=== PATIENT | female | born 1960 | race Caucasian/White ===

== ENCOUNTER 2020-06-30 09:30 | Emergency (ER) | payer OTHER, SELFPAY ==
[2020-06-30 09:48] VITALS: BP 148/83; PULSE 83; RESP 16; TEMP 37.1; O2SAT 98; BMI 21.9
--- NOTE | 2020-06-30 09:48 | CT_ITS ---
EXAMINATION: CT ABDOMEN AND PELVIS WITHOUT CONTRAST CLINICAL INFORMATION: Left-sided flank pain. History of kidney stones. Status post lithotripsy. COMPARISON: CT abdomen pelvis 12/26/2019 TECHNIQUE: Multidetector volumetric imaging was performed from the superior aspect of the liver through the pubic symphysis. Sagittal and coronal reformatted images were obtained on the technologist's workstation. This CT examination was performed using dose optimization techniques as appropriate, variously including the following: *Automated exposure control *Adjustment of mA and/or kV according to patient size (this includes techniques or standardized protocols for targeted exams where dose is matched to indication/reason for exam; i.e. extremities or head) *Use of iterative reconstruction technique DLP: 678 mGy-cm FINDINGS: Visualized lung bases are well aerated. There is minimal dependent atelectasis. The liver demonstrates normal size, contour and attenuation. The gallbladder is normal in appearance. The pancreas, spleen and adrenal glands are unremarkable. There is mild to moderate left-sided hydronephrosis secondary to a 2 mm calculus within the mid left ureter. No renal calculi are present bilaterally. There is no right-sided hydronephrosis. Tiny hiatal hernia. The stomach is decompressed. Normal caliber loops of small and large bowel. Normal appendix. Minimal colonic diverticulosis without CT evidence to suggest active diverticulitis. Nonaneurysmal abdominal aorta. The bladder is relatively decompressed but unremarkable. Unremarkable CT appearance of the uterus. No gross free pelvic fluid. No inguinal lymphadenopathy. Mild degenerative changes of the spine. IMPRESSION: Mild to moderate left-sided hydronephrosis secondary to a 2 mm calculus within the mid left ureter.
--- NOTE | 2020-06-30 09:50 | ED.GENADULT ---
HPI - General Adult General Chief complaint: Abdominal Pain Stated complaint: flank pain Time Seen by Provider: 06/30/20 09:39 Source: patient Mode of arrival: ambulatory Limitations: no limitations History of Present Illness HPI narrative: 60 y/o female with history of kidney stones requiring lithotripsy in the past presenting with acute onset of left sided flank pain that started at 4am today. She states it feels exactly like prior kidney stone pain. She also reports nausea and vomiting. She denies blood in her urine, painful urination or urinary frequency. No fever or chills. She states the pain sometimes shoots to her left sided abdomen as well. She has not taken anything for the pain yet. Related Data Previous Rx's Medication Instructions Recorded ondansetron HCl [Zofran] 4 mg PO Q8H PRN #14 tab 06/30/20 oxycodone 5 mg PO Q6H PRN #14 tab 06/30/20 prednisone 40 mg PO DAILY #10 tab 06/30/20 tamsulosin [Flomax] 0.4 mg PO DAILY #10 cap 06/30/20 Allergies Allergy/AdvReac Type Severity Reaction Status Date / Time sulfamethoxazole Allergy Severe RASH Verified 06/30/20 09:47 [From BACTRIM] trimethoprim [From BACTRIM] Allergy Severe RASH Verified 06/30/20 09:47 gentamicin Allergy Unknown Verified 06/30/20 09:47 Sulfa (Sulfonamide Allergy Unknown Verified 06/30/20 09:47 Antibiotics) Review of Systems Review of Systems: Constitutional: No Fever, No Chills ENT/Mouth: No sore throat, No Rhinorrhea, No Swallowing Difficulty Eyes: No Eye Pain, No Swelling, No Redness Cardiovascular: No Chest Pain, No SOB, No Orthopnea, No Edema Respiratory: No Cough, No Sputum, No Wheezing, No dyspnea Gastrointestinal: + Nausea, No Vomiting, No Diarrhea, + abdominal Pain, No Hematochezia, No Melena Genitourinary: No Dysuria, No Urinary Frequency, No Hematuria Musculoskeletal: No joint pain, No Myalgias Skin: No Skin Lesions, No rash Neuro: No Weakness, No Numbness, No Dizziness, No Headache Psych: No Anxiety/Panic, No Depression Heme/Lymph: No Bruising, No Lymphadenopathy Endocrine: No Polyuria, No Polydipsia [facility] Past Medical History Medical History (Updated 06/30/20 @ 12:29 by LYNDSEY Ruiz) Asthma Kidney calculi Social History Social History Alcohol intake: never Smoking Status: Never smoker Use of substances other than those prescribed or required for medical reasons: No Advance Directives: No Advance Directives Information Provided: No Physical Exam Vital Signs: Vital Signs: Vital Signs Temp Pulse Resp BP Pulse Ox 06/30/20 09:48 98.7 F 83 16 148/83 H 98 Body Mass Index 21.9 Appearance: Alert. Oriented X3. No acute distress. Eyes: Pupils equal, round and reactive to light. ENT: Pharynx normal. Neck: Normal inspection. Neck supple. CVS: Normal heart rate and rhythm. Pulses normal. Respiratory: No respiratory distress. Breath sounds normal. Abdomen: Soft with mild LLQ tenderness. CVA tenderness on the left. +BS x4 Skin: Skin warm and dry. Normal skin color. Normal skin turgor. No rashes. Extremities: No lower extremity edema. Neuro: Oriented X 3. No motor deficit. No sensory deficit. Course Course Course Narrative: Concern for kidney stones given her history - IVF, toradol and zofran ordered. CT scan pending. Reevaluation(s) Reevaluation #1: Significant improvement after NSAID and antiemetic. CT scan shows 2mm stone in mid-ureter with mild-mod hydroureteronephrosis. Given size and location and patient's improvement in symptoms she can likely pass the stone on her own. IV decadron and flomax given. Can likely d/c with prednisone, flomax, and oxycodone if pain remains controlled and she is tolerating PO. Time: 12:03 Reevaluation #2: Pain remains controlled. She is stable for discharge with plan to f/u Urology in 1 week. Instructed to return to the ER if pain persists/worsens or if she has persistent N/V. Time: 12:45 Medical Decision Making Lab Data Result diagrams: 06/30/20 10:01 06/30/20 10:01 Labs: Lab Results 06/30/20 06/30/20 Range/Units 10: 10:01 WBC 9.9 (4.8-10.8) X10*3/uL RBC 4.75 (4.20-5.50) X10*6/uL Hgb 14.2 (12.0-16.0) g/dl Hct 41.8 (37-47) % MCV 88.0 (80-98) fL MCH 29.9 (27.0-33.0) pg MCHC 34.0 (31.0-35.0) g/dl RDW 12.4 (11.0-16.0) % Plt Count 235 (160-400) X10*3/uL MPV 10.4 (9.4-12.3) fL Immature Gran % (Auto) 0.3 (0.0-0.4) % Neut % (Auto) 80.2 H (45-73) % Lymph % (Auto) 13.6 L (20-40) % [place] % (Auto) 5.5 (2-11) % Eos % (Auto) 0.1 (0-4) % Baso % (Auto) 0.3 (0-2) % Lymph # (Auto) 1.3 (1.2-4.9) X10*3/uL [place] # (Auto) 0.5 (0.1-1.2) X10*3/uL Eos # (Auto) 0.0 (0.0-0.4) X10*3/uL Baso # (Auto) 0.0 (0.0-0.2) X10*3/uL Abs Immat Gran (auto) 0.03 (0.00-0.03) X10*3/uL Absolute Neuts (auto) 7.9 (2.0-8.3) X10*3/uL Absolute Nucleated RBC 0.000 (0.0-0.012) X10*3/uL Nucleated RBC % (auto) 0.0 (0.0-0.2) /100WBC Sodium 140 (135-145) mmol/L Potassium 4.0 (3.3-5.1) mmol/l Chloride 106 (96-108) mmol/L Carbon Dioxide 26 (22-29) mmol/L Anion Gap 12 (12-20) BUN 14 (9-16) mg/dL Creatinine 1.03 (0.5-1.4) mg/dL Estim Creat Clear Calc 55.7 Estimated GFR 55 Random Glucose 109 (60-115) mg/dL Calcium 9.3 (8.4-10.2) mg/dL Total Bilirubin 0.6 (0.0-1.0) mg/dL Direct Bilirubin 0.3 (0.0-0.5) mg/dL AST 18 (5-31) U/L ALT 13 (0-31) U/L Alkaline Phosphatase 70 (39-117) U/L Total Protein 7.3 (6.5-8.0) g/dL Albumin 4.5 (3.5-5.0) g/dL Discharge Plan Discharge Clinical Impression: Calculus of kidney Patient Disposition: Home, Self-Care Instructions: Kidney Stones (ED) Additional Instructions: Stay hydrated. Take medications as prescribed to help you pass your kidney stone at home. If you have worsening pain, persistent nausea and vomiting come back to the ER for further evaluation. Follow up with Urology in 1 week. Prescriptions: New prednisone 20 mg tablet 40 mg PO DAILY Qty: 10 RF: 0 ondansetron HCl [Zofran] 4 mg tablet 4 mg PO Q8H PRN (Reason: nausea and vomiting) Qty: 14 RF: 0 oxycodone 5 mg tablet 5 mg PO Q6H PRN (Reason: pain) Qty: 14 RF: 0 tamsulosin [Flomax] 0.4 mg capsule 0.4 mg PO DAILY Qty: 10 RF: 0 Referrals: Remigio Rodriguez MD [Physician] - 1 week
[2020-06-30] MEDS: 0.9 % Sodium Chloride 1,000 ML 999 ML IVCONT (10:11)
[2020-06-30] MEDS: ondansetron HCL 4 MG/2 ML VIAL IVPUSH (10:11)
[2020-06-30] MEDS: Ketorolac Tromethamine 30 MG/ML VIAL IVPUSH (10:11)
[2020-06-30 10:12] LABS: MANUAL DIFF FLAG NO
[2020-06-30 10:14] LABS: Basophils Percent Auto 0.3 % (0-2); Eosinophils Percent Auto 0.1 % (0-4); Hematocrit 41.8 % (37-47); Hemoglobin 14.2 g/dl (12.0-16.0); Imm Gran Abs Auto 0.03 X10*3/uL (0.00-0.03); Imm Gran Pct Auto 0.3 % (0.0-0.4); Lymphocytes Absolute Auto 1.3 X10*3/uL (1.2-4.9); Lymphocytes Percent Auto 13.6 % (20-40); Mean Corpuscular Hemoglobin 29.9 pg (27.0-33.0); Mean Platelet Volume 10.4 fL (9.4-12.3); Monocytes Absolute Auto 0.5 X10*3/uL (0.1-1.2); Monocytes Percent Auto 5.5 % (2-11); Neutrophils Absolute Auto 7.9 X10*3/uL (2.0-8.3); Neutrophils Percent Auto 80.2 % (45-73); Platelet Count 235 X10*3/uL (160-400); Red Blood Count 4.75 X10*6/uL (4.20-5.50); Red Cell Distribution Width 12.4 % (11.0-16.0); White Blood Count 9.9 X10*3/uL (4.8-10.8)
[2020-06-30 10:55] LABS: Alanine Aminotransferase 13 U/L (0-31); Albumin Level 4.5 g/dL (3.5-5.0); Alkaline Phosphatase 70 U/L (39-117); Anion Gap 12 (12-20); Aspartate Amino Transferase 18 U/L (5-31); Bilirubin Direct 0.3 mg/dL (0.0-0.5); Bilirubin Total 0.6 mg/dL (0.0-1.0); Blood Urea Nitrogen 14 mg/dL (9-16); Calcium 9.3 mg/dL (8.4-10.2); Carbon Dioxide 26 mmol/L (22-29); Chloride 106 mmol/L (96-108); Creatinine Clr Calc Pharmacy 55.7; Estimated Glomerular Filt Rate 55; Glucose Random 109 mg/dL (60-115); Sodium 140 mmol/L (135-145); Total Protein 7.3 g/dL (6.5-8.0)
[2020-06-30] MEDS: Tamsulosin HCL 0.4 MG CAPSULE PO (12:11)
[2020-06-30] MEDS: dexAMETHasone 2 MG TABLET 10 MG PO (12:11)
== END 2020-06-30 13:08 | disposition home or self-care (01) ==
PROVIDERS: Physician Assistant; Emergency Provider Emergency Medicine; PCP Internal Medicine
DX: N13.2 Hydronephrosis with renal and ureteral calculous obstruction (principal); Z87.442 Personal history of urinary calculi
CPT/HCPCS: 36415; 74176; 80048; 80076; 85025; 96361; 96374; 96375; 99284; J8540

== ENCOUNTER → 2020-07-06 14:40 | Outpatient (BNVA) | payer OTHER, SELFPAY | PROVIDERS: PCP Internal Medicine; Visit Provider Urology | DX: Z76.89 Persons encountering health services in other specified circumstances (principal) ==

== ENCOUNTER 2020-07-14 15:54 | Outpatient (REF) | payer OTHER, SELFPAY ==
--- NOTE | 2020-07-14 15:59 | US_ITS ---
EXAMINATION: US RETROPERITONEAL LIMITED (RENAL ONLY) CLINICAL INFORMATION: Calculus of kidney. COMPARISON: CT abdomen and pelvis 06/30/2020. Renal ultrasound 12/16/2019. X-ray abdomen 07/29/2018. Ultrasound abdomen limited 07/29/2018. TECHNIQUE: Real-time imaging of the kidneys. FINDINGS: RIGHT KIDNEY: 11.5 x 4.5 x 5.8 cm (SAG x AP x TRV). The kidney is normal in size, contour, and echogenicity. Renal cortical thickness is normal. No focal parenchymal lesions or hydronephrosis. There is a nonobstructive echogenic stone lower pole measuring 0.2 x 0.3 x 0.2 cm LEFT KIDNEY: 11.2 x 4.5 x 4.4 cm (SAG x AP x TRV). The kidney is normal in size, contour, and echogenicity. Renal cortical thickness is normal. No focal parenchymal lesions or hydronephrosis. There is a nonobstructive echogenic stone lower pole measuring 0.3 x 0.3 x 0.3 cm. US/US renal BI IMPRESSION: Bilateral nonobstructive echogenic lower pole renal calculi. No caliectasis or hydronephrosis seen. Recent CT visualized left mid ureteral stone is not included in the [id number]. There is no hydronephrosis on left side.
== END 2020-07-14 15:55 | disposition home or self-care (01) ==
LOC: HO.US 15:54
PROVIDERS: Visit Provider Urology
DX: N20.0 Calculus of kidney (principal)
CPT/HCPCS: 76775

== ENCOUNTER 2021-07-27 14:00 | Outpatient (REF) | payer OTHER, SELFPAY ==
--- NOTE | ~2021-07-27 | US_ITS ---
EXAMINATION: US RETROPERITONEAL LIMITED (RENAL ONLY) CLINICAL INFORMATION: Calculus of kidney. COMPARISON: Bilateral renal ultrasound dated 07/14/2020. CT abdomen and pelvis without contrast dated 06/30/2020. Renal ultrasound with bladder dated 12/16/2019. X-ray abdomen dated 07/29/2018. TECHNIQUE: Real-time imaging of the kidneys. FINDINGS: RIGHT KIDNEY: 11.9 x 5 x 4.9 cm (SAG x AP x TRV). The kidney is normal in size, contour, and echogenicity. Renal cortical thickness is normal. No calculi or focal parenchymal lesions. No hydronephrosis. LEFT KIDNEY: 11.3 x 4.8 x 4.8 cm (SAG x AP x TRV). The kidney is normal in size, contour, and echogenicity. Renal cortical thickness is normal. No calculi or focal parenchymal lesions. No hydronephrosis. US/US renal BI IMPRESSION: Unremarkable renal ultrasound. Previously visualized nonobstructive echogenic lower pole renal calculi are not seen at this time..
== END 2021-07-27 14:01 | disposition home or self-care (01) ==
LOC: HO.US 14:00
PROVIDERS: Visit Provider Urology
DX: N20.0 Calculus of kidney (principal)
CPT/HCPCS: 76775

== ENCOUNTER → 2021-09-22 08:34 | Outpatient (BNVA) | payer OTHER, SELFPAY | PROVIDERS: PCP Internal Medicine ==

== ENCOUNTER 2021-10-29 10:05 | Outpatient (REF) | payer OTHER, SELFPAY ==
--- NOTE | ~2021-10-29 | MM_ITS ---
EXAMINATION: MM SCREENING DIGITAL BREAST TOMOSYNTHESIS, BILATERAL CLINICAL INFORMATION: Screening. Asymptomatic. The lifetime risk of breast cancer based on the Tyrer-Cuzick Model is 5%. COMPARISON: Outside mammography: 06/01/2018, 05/26/2017, 05/20/2016 ([facility]). TECHNIQUE: Digital breast tomosynthesis is performed in both the craniocaudal and mediolateral oblique views along with computer-aided detection (CAD). Synthesized 2D images are generated from the tomosynthesis. FINDINGS: There are scattered areas of fibroglandular density (ACR BI-RADS breast composition Category b). There is a fibronodular parenchymal pattern similar to prior studies. Breast tissue composition borders on heterogeneously dense. Scattered minor parenchymal asymmetries are stable. There are no significant masses, abnormal calcifications, or other abnormalities. The axilla and skin contours are unremarkable. No significant changes from prior outside exams. MM/MM tomosynthesis screening BI IMPRESSION: No significant changes from prior outside exams. ASSESSMENT: BI-RADS 2: Benign RECOMMENDATION: Routine annual mammography screening. This patient's information was entered into a reminder system with a target due date for their next mammogram.
== END 2021-10-29 10:06 | disposition home or self-care (01) ==
LOC: HO.MAMMO 10:05
PROVIDERS: Visit Provider Registered Nurse Community Health
DX: Z12.31 Encounter for screening mammogram for malignant neoplasm of breast (principal)
CPT/HCPCS: 77063; 77067

== ENCOUNTER 2022-04-07 14:52 | Outpatient (REF) | payer OTHER, SELFPAY ==
--- NOTE | ~2022-04-07 | US_ITS ---
EXAMINATION: US RETROPERITONEAL LIMITED (RENAL ONLY) CLINICAL INFORMATION: Calculus of kidney. COMPARISON: Renal ultrasound 07/27/2021. CT abdomen and pelvis 06/30/2020. TECHNIQUE: Real-time imaging of the kidneys. FINDINGS: RIGHT KIDNEY: 11.2 x 4.4 x 3.5 cm (SAG x AP x TRV). The kidney is normal in size, contour, and echogenicity. Renal cortical thickness is normal. No focal parenchymal lesions or hydronephrosis. 2 mm nonobstructing mid pole renal stone not seen on recent prior however appears present and similar to 2020. LEFT KIDNEY: 11.0 x 4.9 x 3.9 cm (SAG x AP x TRV). The kidney is normal in size, contour, and echogenicity. Renal cortical thickness is normal. No focal parenchymal lesions or hydronephrosis. Probable 2 mm nonobstructing left lower pole renal stone not seen on recent prior however present 06/29/2020 and similar. Partially imaged liver appears echogenic. US/US renal BI IMPRESSION: 2 mm nonobstructing right midpole renal stone and probable 2 mm nonobstructing left lower pole renal stone, both not seen on recent prior however present and 07/14/2020 and similar in appearance. Partially imaged liver appears echogenic suggestive of hepatic steatosis or underlying liver disease. This could be further characterized with a dedicated right upper quadrant ultrasound if clinically indicated.
== END 2022-04-07 14:53 | disposition home or self-care (01) ==
LOC: HO.US 14:52
DX: N20.0 Calculus of kidney (principal)
CPT/HCPCS: 76775

== ENCOUNTER 2022-10-04 12:45 | Outpatient (REF) | payer OTHER, SELFPAY ==
--- NOTE | ~2022-10-04 | US_ITS ---
EXAMINATION: US RETROPERITONEAL LIMITED (RENAL ONLY) CLINICAL INFORMATION: Calculus of kidney. COMPARISON: Ultrasound retroperitoneal limited (renal only) 04/07/2022 and 07/27/2021. CT abdomen and pelvis without contrast 06/30/2020. X-ray abdomen 07/29/2018. TECHNIQUE: Real-time imaging of the kidneys. FINDINGS: RIGHT KIDNEY: 11.4 x 4.6 x 5.9 cm (SAG x AP x TRV). The kidney is normal in size, contour, and echogenicity. Renal cortical thickness is normal. No calculi or focal parenchymal lesions. No hydronephrosis. Extrarenal pelvis noted. Vascular calcifications are noted. LEFT KIDNEY: 11.3 x 4.8 x 4.3 cm (SAG x AP x TRV). The kidney is normal in size, contour, and echogenicity. Renal cortical thickness is normal. No calculi or focal parenchymal lesions. No hydronephrosis. US/US renal BI IMPRESSION: No renal calculi identified. No hydronephrosis.
== END 2022-10-04 12:46 | disposition home or self-care (01) ==
LOC: HO.US 12:45
DX: N20.0 Calculus of kidney (principal)
CPT/HCPCS: 76775

== ENCOUNTER 2022-11-18 10:05 | Outpatient (REF) | payer OTHER, SELFPAY ==
--- NOTE | ~2022-11-18 | MM_ITS ---
EXAMINATION: MM SCREENING DIGITAL BREAST TOMOSYNTHESIS, BILATERAL CLINICAL INFORMATION: Screening. Asymptomatic. The lifetime risk of breast cancer based on the Tyrer-Cuzick Model is 5%. COMPARISON: Mammography: 10/29/2021, 06/01/2018, 05/26/2017 TECHNIQUE: Digital breast tomosynthesis is performed in both the craniocaudal and mediolateral oblique views along with computer-aided detection (CAD). Synthesized 2D images are generated from the tomosynthesis. FINDINGS: There are scattered areas of fibroglandular density (ACR BI-RADS breast composition Category b). Breast tissue composition borders on heterogeneously dense. There are no significant masses, abnormal calcifications, or other abnormalities. Fibronodular parenchymal pattern is similar to prior studies and there is no developing density or architectural abnormality. The axilla are unremarkable. MM/MM tomosynthesis screening BI IMPRESSION: No mammographic evidence of malignancy. ASSESSMENT: BI-RADS 2: Benign RECOMMENDATION: Routine annual mammography screening. This patient's information was entered into a reminder system with a target due date for their next mammogram.
== END 2022-11-18 10:06 | disposition home or self-care (01) ==
LOC: HO.MAMMO 10:05
PROVIDERS: PCP Internal Medicine; Visit Provider Registered Nurse Community Health
DX: Z12.31 Encounter for screening mammogram for malignant neoplasm of breast (principal)
CPT/HCPCS: 77063; 77067

== ENCOUNTER → 2022-11-30 08:33 | Outpatient (BNVA) | payer OTHER, SELFPAY | PROVIDERS: PCP Internal Medicine; Visit Provider Nurse Practitioner Family | DX: Z13.89 Encounter for screening for other disorder (principal) ==

== ENCOUNTER 2023-05-25 14:36 | Outpatient (REF) | payer OTHER, SELFPAY ==
--- NOTE | ~2023-05-25 | US_ITS ---
EXAMINATION: US RETROPERITONEAL LIMITED (RENAL ONLY) CLINICAL INFORMATION: Calculus of kidney. COMPARISON: Renal ultrasound 10/04/2022 and 04/07/2022. CT of abdomen and pelvis 06/30/2020. X-ray abdomen 07/29/2018. TECHNIQUE: Real-time imaging of the kidneys. FINDINGS: RIGHT KIDNEY: 10.6 x 4.8 x 5.0 cm (SAG x AP x TRV). The kidney is normal in size, contour, and echogenicity. Renal cortical thickness is normal. No focal parenchymal lesions or hydronephrosis. 0.4 x 0.3 x 0.4 cm lower pole and 0.3 x 0.2 x 0.3 cm mid renal nonobstructing calculi are seen. LEFT KIDNEY: 11.4 x 5.6 x 5.5 cm (SAG x AP x TRV). The kidney is normal in size, contour, and echogenicity. Renal cortical thickness is normal. No focal parenchymal lesions or hydronephrosis. 0.4 x 0.2 x 0.3 cm mid renal nonobstructing calculus is seen. 0.2 x 0.1 x 0.2 cm renal calcification appears to be cortical in location rather than within the collecting system. US/US renal BI IMPRESSION: Bilateral small nonobstructing renal calculi.
== END 2023-05-25 14:37 | disposition home or self-care (01) ==
LOC: HO.US 14:36
PROVIDERS: PCP Internal Medicine; Visit Provider Nurse Practitioner Family
DX: N20.0 Calculus of kidney (principal)
CPT/HCPCS: 76775

== ENCOUNTER 2023-06-05 14:49 | Outpatient (AMB) | payer OTHER, SELFPAY ==
--- NOTE | 2023-06-05 15:00 | MHC.OFFVIS ---
Intake Intake Visit Reasons: 6m/US(set) Intake Note: Patient is present for tele visit for 6mo follow up kidney stone/ultrasound (imaging 05/25/23) Urology Medications: Vitamin B6 Blood Thinner: none Code Machine Operator Required: Yes Code Machine Operator Name: Rayne Accompanied by: Self / Same As Patient Allergies sulfamethoxazole [From BACTRIM] Allergy (Severe, Verified 06/05/23 16:06) RASH trimethoprim [From BACTRIM] Allergy (Severe, Verified 06/05/23 16:06) RASH gentamicin Allergy (Verified 06/05/23 16:06) Unknown Sulfa (Sulfonamide Antibiotics) Allergy (Verified 06/05/23 16:06) Unknown Medication List - Last Reconciled 06/05/23 by MARK Mario ascorbic acid (vitamin C) mg PO pyridoxine (vitamin B6) 50 mg PO DAILY 30 days HPI HPI Comments History of Present Illness Details Erendira is a pleasant 63-year-old Malay-speaking female patient of Dr. Madden. She has a past medical history of asthma and renal stones. She presents to the office today for her nephrolthiasis. When asked she reports to be doing and feeling well. Recent renal ultrasound results reviewed with the patient today. Right kidney with no lesions and or hydronephrosis 0.4 x 0.3 x 0.4 cm lower pole and 0.3 x 0.2 x 0.3 cm mid renal nonobstructing calculi are seen. Left kidney with no lesions or hydronephrosis. 0.4 x 0.2 x 0.3 cm mid renal nonobstructing calculus is seen. 0.2 x 0.1 x 0.2 cm renal calcification appears to be cortical in location rather than within the collecting system. When asked she denies urinary urgency, urinary frequency, incontinence, nocturia, hematuria, dysuria, foul smelling urine, changes to urinary stream, flank pain, fever, and or chills. When asked she offers no concerns or complaints at this time. When asked she reports to be drinking water daily and adding lemon juice to water daily. In office urinalysis results reviewed with the patient today. 2+ microscopic hematuria noted. Likely related to nephrolithiasis. Will continue with surveillance monitoring. [facility] Medical History Asthma Kidney calculi Social History Alcohol intake: never Review of Systems Const All systems reviewed & are unremarkable except as noted in HPI and below Eyes Reports no additional complaints ENT Reports no additional complaints Card Reports no additional complaints Resp Reports as per HPI GI Reports no additional complaints Reports as per HPI Musc Reports no additional complaints Neuro Reports no additional complaints Psych Reports no additional complaints Endo Reports no additional complaints Mendez/Lymph Reports no additional complaints Aller/Immun Reports no additional complaints Physical Exam Const General: cooperative, healthy appearing, comfortable, no acute distress, well developed, alert and awake Orientation/consciousness: patient oriented x3 Limitations: no limitations HEENT Head: Yes normal to inspection, Yes normocephalic and Yes atraumatic Ears: hearing grossly normal bilaterally Eyes General: appearance normal, both eyes and all related structures Neck Neck: Yes normal visual inspection and Yes trachea midline Chest Chest palpation & inspection: normal inspection of the chest Resp Effort & Inspection: normal respiratory effort and able to speak in complete sentences Cardio Rate: regular rate GI Inspection: Yes normal to inspection General: Yes no CVA tenderness Back/Spine/Pelvis Back: no CVA tenderness Skin General skin exam: no rashes or lesions noted Neuro General: patient oriented x3 Extrem General: Yes normal to inspection Psych Appearance: grossly normal and well kempt Mental Status: mental status grossly normal Speech and movement: Normal speech and movement present and Clear speech present Affect: normal affect Attitude: cooperative Thought process: Normal thought process present Thought content: Normal thought content present Insight: Good insight present (Psych) Judgement: Good judgement present (Psych) Results AMB Urinalysis, Automated UA Leukoctes 0 Jenny/uL Last Edit by Zia Noyola on 06/05/23 15:35 UA Nitrite Negative Last Edit by Cerebrexcooper Noyola on 06/05/23 15:35 UA Urobilinogen 0.2 mg/dL Last Edit by JasonSantur Corporationcooper Noyola on 06/05/23 15:35 UA Protein 0 mg/dL Last Edit by Cerebrexcooper Noyola on 06/05/23 15:35 UA pH 6.0 Last Edit by JasonSantur Corporationcooper Noyola on 06/05/23 15:35 UA Blood 80 Ben/uL Last Edit by JasonSantur Corporationcooper Noyola on 06/05/23 15:35 UA Specific [place] 1.025 Last Edit by Zia Lolycourtney on 06/05/23 15:35 UA Ketone Negative Last Edit by Zia Lolycourtney on 06/05/23 15:35 UA Bilirubin 0 mg/dL Last Edit by Zia Noyola on 06/05/23 15:35 UA Glucose 0 mg/dL Last Edit by Zia oNyola on 06/05/23 15:35 Results Reviewed Results Reviewed: Laboratory Last Values Urine pH (Auto) 6.0 06/05/23 15:08 Specific [place] (Auto) 1.025 06/05/23 15:08 Urine Protein (Auto) 0 mg/dL 06/05/23 15:08 Glucose (UA)(Auto) 0 mg/dL 06/05/23 15:08 Urine Ketones (Auto) Negative 06/05/23 15:08 Urine Blood (Auto) 80 Ben/uL 06/05/23 15:08 Urine Nitrite (Auto) Negative 06/05/23 15:08 Urine Bilirubin (Auto) 0 mg/dL 06/05/23 15:08 Urine Urobilinogen (Auto) 0.2 mg/dL 06/05/23 15:08 Leukocyte Esterase (Auto) 0 Jenny/uL 06/05/23 15:08 Date of Service: 05/25/23 EXAMINATION: US RETROPERITONEAL LIMITED (RENAL ONLY) FINDINGS: RIGHT KIDNEY: 10.6 x 4.8 x 5.0 cm (SAG x AP x TRV). The kidney is normal in size, contour, and echogenicity. Renal cortical thickness is normal. No focal parenchymal lesions or hydronephrosis. 0.4 x 0.3 x 0.4 cm lower pole and 0.3 x 0.2 x 0.3 cm mid renal nonobstructing calculi are seen. LEFT KIDNEY: 11.4 x 5.6 x 5.5 cm (SAG x AP x TRV). The kidney is normal in size, contour, and echogenicity. Renal cortical thickness is normal. No focal parenchymal lesions or hydronephrosis. 0.4 x 0.2 x 0.3 cm mid renal nonobstructing calculus is seen. 0.2 x 0.1 x 0.2 cm renal calcification appears to be cortical in location rather than within the collecting system. IMPRESSION: Bilateral small nonobstructing renal calculi. Assessment & Plan Assessment & Plan (1) Kidney calculi: Code(s): N20.0 - Calculus of kidney Plan In office urinalysis results reviewed with the patient today. Recent renal ultrasound results reviewed with the patient today. Patient denies any bothersome urinary issues or concerns at this time. Continue drinking plenty of water daily. Continue vitamin B6 daily. Continue adding 1 oz of lemon juice to water daily. Renal ultrasound in 6 months. Follow-up in 6 months with imaging to be completed prior; or sooner with any issues, concerns, and or questions. Orders: Orders US renal BI 6 Months N20.0 - Calculus of kidney AMB Urinalysis Automated Today Z13.9 - Encounter for screening, unspecified Medications: Refilled pyridoxine (vitamin B6) 50 mg PO DAILY 30 days 90 caps 3RF Patient Instructions: The patient had an opportunity to ask questions regarding the treatment plan. All questions were answered. Physical exam, labs, and imaging were discussed and reviewed in detail. As well as risks, benefits, and discussion of treatment choices. No major barriers to understanding were identified. The patient expressed understanding and agreement with the above treatment plan. The patient was made aware they should contact our office by phone for worsening of their current condition, the appearance of new symptoms, or with any questions or concerns. Compliance is encouraged with any medications and follow up testing that is ordered. It is a privilege to be allowed the opportunity to participate in? your urological care.? Again, if you have any questions or concerns If you have any questions or concerns please do not hesitate to contact me. The office is [phone]. This note is constructed using voice recognition software. While every effort has been made to ensure accuracy brush finisher errors may have been included. Yours sincerely, MARK Mario Coding Level of Care Code Est Pt Level 3 (10005) Diagnoses Kidney calculi N20.0
== END 2023-06-05 15:36 | disposition home or self-care (01) ==
PROVIDERS: PCP Internal Medicine; Visit Provider Nurse Practitioner Family
DX: N20.0 Calculus of kidney (principal); Z13.9 Encounter for screening, unspecified
CPT/HCPCS: 99213

== ENCOUNTER → 2023-06-05 14:49 | Outpatient (BNVA) | payer OTHER, SELFPAY | PROVIDERS: Visit Provider Nurse Practitioner Family | DX: N20.0 Calculus of kidney (principal) | CPT/HCPCS: 81003 ==

== ENCOUNTER 2023-09-04 08:08 | Outpatient (REF) | payer OTHER, SELFPAY ==
[2023-09-04 11:30] LABS: Hematocrit 42.8 % (37.0-47.0); Mean Corpuscular HGB Conc 32.7 g/dl (31.0-35.0); Mean Corpuscular Volume 91.8 fL (80.0-98.0); Mean Platelet Volume 11.5 fL (9.4-12.3); Platelet Count 214 X10*3/uL (160-400); Red Blood Count 4.66 X10*6/uL (4.20-5.50); Red Cell Distribution Width 12.4 % (11.0-16.0); White Blood Count 5.9 X10*3/uL (4.8-10.8)
[2023-09-04 11:40] LABS: Estimated Average Glucose 108 mg/dL; Hemoglobin A1c % 5.4 % (<6.0)
[2023-09-04 11:50] LABS: Alanine Aminotransferase 42 U/L (0-31); Albumin Level 4.2 g/dL (3.5-5.0); Alkaline Phosphatase 65 U/L (39-117); Anion Gap 12 (12-20); Aspartate Amino Transferase 30 U/L (5-31); Bilirubin Total 0.5 mg/dL (0.0-1.0); Blood Urea Nitrogen 15 mg/dL (9-16); Calcium 9.2 mg/dL (8.4-10.2); Carbon Dioxide 25 mmol/L (22-29); Chloride 109 mmol/L (96-108); Cholesterol 215 mg/dL (<200); Estimated Glomerular Filt Rate > 60; Glucose Random 90 mg/dL (60-115); HDL Cholesterol 45 mg/dL (>40); LDL Cholesterol Calculated 146 mg/dL (<100); Potassium 4.3 mmol/L (3.3-5.1); Sodium 142 mmol/L (135-145); Total Protein 7.2 g/dL (6.5-8.0); Triglycerides 124 mg/dL (<150)
[2023-09-04 12:09] LABS: TSH reflex Free T4 3.02 uIU/mL (0.32-4.0)
[2023-09-04 12:24] LABS: Syphilis Screen Nonreactive (Nonreactive)
[2023-09-04 12:25] LABS: HBS Num1 43.48 mIU/mL (0-7.99); HBc Num1 0.09 S/CO (0.00-0.79); HBsAGNum1 0.25 S/CO (0.00-0.99); HIV AB/AG Nonreactive (Nonreactive); HIV Num 1 0.05 S/CO (0.00-0.99); Hepatitis B Core Antibody Nonreactive (Nonreactive); Hepatitis B Surface Antigen Negative (Negative); ~Hepatitis B Surface Antibody REACTIVE (Nonreactive); ~Hepatitis C Antibody Nonreactive (Nonreactive)
== END 2023-09-04 08:09 | disposition home or self-care (01) ==
LOC: HO.HHCL 08:08
PROVIDERS: Visit Provider Student in an Organized Health Care Education/Training Program
DX: Z00.00 Encounter for general adult medical examination without abnormal findings (principal); Z11.4 Encounter for screening for human immunodeficiency virus [HIV]
CPT/HCPCS: 36415; 80053; 80061; 83036; 84443; 85027; 86704; 86706; 86780; 86803; 87340; 87389

== ENCOUNTER 2023-10-22 11:11 | Outpatient (REF) | payer OTHER, SELFPAY ==
[2023-10-25 02:38] LABS: HPV mRNA E6/E7 rflx Not Detected (Not Detected)
== END 2023-10-22 11:12 | disposition home or self-care (01) ==
LOC: HO.LNP 11:11
PROVIDERS: Visit Provider Advanced Practice Midwife
DX: Z12.4 Encounter for screening for malignant neoplasm of cervix (principal); Z11.51 Encounter for screening for human papillomavirus (HPV)
CPT/HCPCS: 87624; 88142

== ENCOUNTER 2023-10-30 13:31 | Outpatient (AMB) | payer OTHER, SELFPAY ==
--- NOTE | 2023-10-30 13:39 | MHC.OFFVIS ---
Intake Vital Signs 10/30/23 13:46 Height 5 ft 4 in Weight 158 lb BMI 27.1 BP 142/74 H Blood Pressure Location Rt brachial Position Sitting Pulse 84 Intake Visit Reasons: Mass Rt neck Intake Note: Patient referred by PCP Dr. Manuel Mcgowan for mass on Rt neck. Present for 2yrs. Patient c/o: discomfort US Rt neck dated 10-21-23. Chemical Process Project Engineer Required: No Accompanied by: Self / Same As Patient Allergies sulfamethoxazole [From BACTRIM] Allergy (Severe, Verified 10/30/23 13:43) RASH trimethoprim [From BACTRIM] Allergy (Severe, Verified 10/30/23 13:43) RASH gentamicin Allergy (Verified 10/30/23 13:43) Unknown Sulfa (Sulfonamide Antibiotics) Allergy (Verified 10/30/23 13:43) Unknown HPI HPI Comments History of Present Illness Details Patient presents with a longstanding history of an upper back/lower neck posterior cyst. It will occasionally increasing size become symptomatic and she will squeeze it. Because of persistence, she wished to have this removed. She has never had infection. . He has no other such lesions elsewhere. Chart was reviewed and patient evaluated [facility] Medical History (Updated 10/30/23 @ 13:45 by EDIE Fraire) Surgical complication involving left eye Asthma Kidney calculi Social History (Updated 10/30/23 @ 13:45 by EDIE Fraire) Alcohol intake: never Patient Tobacco Use Status: Never used Tobacco Physical Exam Vital Signs: Last Vital Signs Pulse 84 10/30/23 13:46 BP 142/74 H 10/30/23 13:46 BMI result Body Mass Index 27.1 Neck Other: Approximately 4 x 3 cm upper back midline mass consistent with a large sebaceous cyst. Multiple tattoos. Chest Other: Chest breath sounds bilaterally, HS 1 in 2 GI Other: Abdomen soft, benign Assessment & Plan Assessment & Plan (1) Sebaceous cyst: Code(s): L72.3 - Sebaceous cyst Plan Risks, benefits, alternatives of posterior upper back sebaceous cyst/mass were reviewed the patient included but not limited to bleeding, infection, recurrence, numbness, pain, scarring, seroma formation, wound dehiscence and the patient wishes to proceed. All questions answered. Arrangements were made for this. Coding Level of Care Code New Pt Level 5 (30103) Diagnoses Sebaceous cyst L72.3
[2023-10-30 13:46] VITALS: BP 142/74; PULSE 84; BMI 27.1
== END 2023-10-30 13:57 | disposition home or self-care (01) ==
PROVIDERS: PCP Student in an Organized Health Care Education/Training Program; Referring Provider Student in an Organized Health Care Education/Training Program; Visit Provider Surgery
DX: L72.3 Sebaceous cyst (principal)
CPT/HCPCS: 99204

== ENCOUNTER → 2023-10-30 13:31 | Outpatient (BNVA) | payer OTHER, SELFPAY | PROVIDERS: PCP Student in an Organized Health Care Education/Training Program; Referring Provider Student in an Organized Health Care Education/Training Program; Visit Provider Surgery ==

== ENCOUNTER 2023-11-24 09:34 | Outpatient (REF) | payer OTHER, SELFPAY | END 2023-11-24 09:35 | disposition home or self-care (01) | LOC: HO.MAMMO 09:34 | PROVIDERS: PCP Student in an Organized Health Care Education/Training Program; Visit Provider Student in an Organized Health Care Education/Training Program | DX: Z12.31 Encounter for screening mammogram for malignant neoplasm of breast (principal) | CPT/HCPCS: 77063; 77067 ==

== ENCOUNTER → 2023-11-24 10:00 | Outpatient (BNV) | payer OTHER, SELFPAY | PROVIDERS: PCP Student in an Organized Health Care Education/Training Program; Visit Provider Radiology Diagnostic Radiology | DX: Z12.31 Encounter for screening mammogram for malignant neoplasm of breast (principal) | CPT/HCPCS: 77063; 77067 ==

== ENCOUNTER 2023-11-26 14:38 | Outpatient (REF) | payer OTHER, SELFPAY ==
--- NOTE | ~2023-11-26 | US_ITS ---
EXAMINATION: US RETROPERITONEAL LIMITED (RENAL ONLY) CLINICAL INFORMATION: Calculus of kidney. COMPARISON: Renal ultrasound 05/25/2023 and 10/04/2022. CT abdomen and pelvis 06/30/2020. X-ray abdomen 07/29/2018. TECHNIQUE: Real-time imaging of the kidneys. FINDINGS: RIGHT KIDNEY: 10.3 x 4.3 x 4.2 cm (SAG x AP x TRV). The kidney is normal in size, contour, and echogenicity. Renal cortical thickness is normal. No focal parenchymal lesions or hydronephrosis. 4 mm nonobstructing stone. LEFT KIDNEY: 11.1 x 4.7 x 3.6 cm (SAG x AP x TRV). The kidney is normal in size, contour, and echogenicity. Renal cortical thickness is normal. No calculi or focal parenchymal lesions. No hydronephrosis. US/US renal BI IMPRESSION: 4 mm nonobstructing right renal stone. No hydronephrosis.
--- NOTE | ~2023-11-26 | US_ITS ---
EXAMINATION: US PELVIS CLINICAL INFORMATION: History of fibroid. AUB COMPARISON: None available. TECHNIQUE: Ultrasound of the pelvis is performed using both transabdominal and transvaginal transducers along with Doppler. Transvaginal imaging is performed due to inadequate visualization transabdominally. FINDINGS: Uterus: The uterus is anteverted, anteflexed and measures 6.5 x 2.7 x 4.0 The double wall endometrial thickness is 3 mm. The uterus is smooth in contour and has normal myometrial echogenicity. There is a solitary fibroid in posterior lower body of uterus measuring 0.3 x 0.3 x 0.3 cm. Previously it measured 0.5 x 0.5 x 0.5 cm. There are small anechoic nabothian cysts in the cervix Adnexa: Both ovaries are visualized. There is normal color flow to the adnexa. There is no ovarian torsion. There is no pelvic ascites or fluid collection. Right ovary measures 2.9 x 1.7 x 1.7 cm and volume 4.4 mL. Previously measured 2.9 x 1.5 x 1.5 cm. Left ovary measures 1.5 x 1.1 x 0.9 cm and volume 0.8 mL. Previously it measured 2.9 x 2.4 x 3.7 cm. There is no free fluid in cul-de-sac. US/US pelvic and transvaginal IMPRESSION: Small uterine fibroid. Small nabothian cysts in the cervix. Unremarkable ovaries.
== END 2023-11-26 14:39 | disposition home or self-care (01) ==
LOC: HO.US 14:38
PROVIDERS: PCP Student in an Organized Health Care Education/Training Program; Visit Provider Advanced Practice Midwife
DX: D21.9 Benign neoplasm of connective and other soft tissue, unspecified (principal); N20.0 Calculus of kidney
CPT/HCPCS: 76775; 76830; 76856

== ENCOUNTER 2023-12-05 14:31 | Outpatient (REF) | payer OTHER, SELFPAY | END 2023-12-05 14:32 | disposition home or self-care (01) | LOC: HO.LNP 14:31 | PROVIDERS: PCP Internal Medicine; Visit Provider Nurse Practitioner Family | DX: N20.0 Calculus of kidney (principal); R82.90 Unspecified abnormal findings in urine | CPT/HCPCS: 81003; 87086 ==

== ENCOUNTER 2023-12-05 14:31 | Outpatient (AMB) | payer OTHER, SELFPAY ==
--- NOTE | 2023-12-05 14:41 | A.OFFVIS_ITS ---
Intake Intake Visit Reasons: 6m/US(set) Intake Note: Patient is present for tele visit for 6mo follow up kidney stone/ultrasound Imagin11/26/23 Urology Medications: Vitamin B6 Blood Thinner: none Film Processor Required: Yes Film Processor Name: KERI LOWKEDAR OCHOA Accompanied by: Self / Same As Patient Allergies sulfamethoxazole [From BACTRIM] Allergy (Severe, Verified 12/05/23 15:15) RASH trimethoprim [From BACTRIM] Allergy (Severe, Verified 12/05/23 15:15) RASH gentamicin Allergy (Verified 12/05/23 15:15) Unknown Sulfa (Sulfonamide Antibiotics) Allergy (Verified 12/05/23 15:15) Unknown Medication List - Last Reconciled 12/05/23 by MARK Mario ascorbic acid (vitamin C) mg PO pyridoxine (vitamin B6) 50 mg PO DAILY 30 days HPI HPI Comments History of Present Illness Details Erendira is a pleasant 63-year-old Greenlandic-speaking female patient of Dr. Madden. She has a past medical history of asthma and renal stones. She presents to the office today for her nephrolthiasis. When asked she reports to be doing and feeling well. Recent renal ultrasound results reviewed with the patient today. Bilateral kidneys with no lesions or hydronephrosis. 4 mm nonobstructing right renal calculus. When asked she reports compliance with vitamin B6 as prescribed. She reports to be drinking plenty of water daily. In office urinalysis results reviewed with the patient today. 2+ leukocytes negative nitrates. She does report intermittent foul-smelling urine over the last 5-7 days. She otherwise denies urinary urgency, urinary frequency, incontinence, nocturia, hematuria, dysuria, changes to urinary stream, flank pain, fever, and or chills. When asked she offers no concerns or complaints at this time. [facility] Medical History Surgical complication involving left eye Asthma Kidney calculi Social History Alcohol intake: never Patient Tobacco Use Status: Never used Tobacco Review of Systems Const All systems reviewed & are unremarkable except as noted in HPI and below Eyes Reports no additional complaints ENT Reports no additional complaints Card Reports no additional complaints Resp Reports as per HPI GI Reports no additional complaints Reports as per HPI Musc Reports no additional complaints Neuro Reports no additional complaints Psych Reports no additional complaints Endo Reports no additional complaints Mendez/Lymph Reports no additional complaints Aller/Immun Reports no additional complaints Physical Exam Const General: cooperative, healthy appearing, comfortable, no acute distress, well developed, alert and awake Orientation/consciousness: patient oriented x3 Limitations: no limitations HEENT Head: Yes normal to inspection, Yes normocephalic and Yes atraumatic Ears: hearing grossly normal bilaterally Eyes General: appearance normal, both eyes and all related structures Neck Neck: Yes normal visual inspection and Yes trachea midline Chest Chest palpation & inspection: normal inspection of the chest Resp Effort & Inspection: normal respiratory effort and able to speak in complete sentences Cardio Rate: regular rate GI Inspection: Yes normal to inspection General: Yes no CVA tenderness Back/Spine/Pelvis Back: no CVA tenderness Skin General skin exam: no rashes or lesions noted Neuro General: patient oriented x3 Extrem General: Yes normal to inspection Psych Appearance: grossly normal and well kempt Mental Status: mental status grossly normal Speech and movement: Normal speech and movement present and Clear speech present Affect: normal affect Attitude: cooperative Thought process: Normal thought process present Thought content: Normal thought content present Insight: Good insight present (Psych) Judgement: Good judgement present (Psych) Results AMB Urinalysis, Automated UA Leukoctes 125 Jenny/uL Last Edit by [employer] on 12/05/23 14:59 UA Nitrite Negative Last Edit by [employer] on 12/05/23 14:59 UA Urobilinogen 0.2 mg/dL Last Edit by [employer] on 12/05/23 14:59 UA Protein 0 mg/dL Last Edit by [employer] on 12/05/23 14:59 UA pH 6.0 Last Edit by [employer] on 12/05/23 14:59 UA Blood 10 Ben/uL Last Edit by [employer] on 12/05/23 14:59 UA Specific [place]gin 1.010 Last Edit by [employer] on 12/05/23 14:59 UA Ketone Negative Last Edit by [employer] on 12/05/23 14:59 UA Bilirubin 0 mg/dL Last Edit by [employer] on 12/05/23 14:59 UA Glucose 0 mg/dL Last Edit by Zia Noyola on 12/05/23 14:59 Results Reviewed Results Reviewed: Laboratory Last Values Urine pH (Auto) 6.0 12/05/23 14:44 Specific [place] (Auto) 1.010 12/05/23 14:44 Urine Protein (Auto) 0 mg/dL 12/05/23 14:44 Glucose (UA)(Auto) 0 mg/dL 12/05/23 14:44 Urine Ketones (Auto) Negative 12/05/23 14:44 Urine Blood (Auto) 10 Ben/uL 12/05/23 14:44 Urine Nitrite (Auto) Negative 12/05/23 14:44 Urine Bilirubin (Auto) 0 mg/dL 12/05/23 14:44 Urine Urobilinogen (Auto) 0.2 mg/dL 12/05/23 14:44 Leukocyte Esterase (Auto) 125 Jenny/uL 12/05/23 14:44 Date of Service: 11/26/23 EXAMINATION: US RETROPERITONEAL LIMITED (RENAL ONLY) LEFT KIDNEY: 11.1 x 4.7 x 3.6 cm (SAG x AP x TRV). The kidney is normal in size, contour, and echogenicity. Renal cortical thickness is normal. No calculi or focal parenchymal lesions. No hydronephrosis. IMPRESSION: 4 mm nonobstructing right renal stone. No hydronephrosis. Assessment & Plan Assessment & Plan (1) Kidney calculi: Code(s): N20.0 - Calculus of kidney (2) Foul smelling urine: Code(s): R82.90 - Unspecified abnormal findings in urine Plan In office urinalysis results reviewed with the patient today; as noted above; will send for urine culture; will await results for potential treatment. Recent renal ultrasound results reviewed with the patient today. Patient denies any bothersome urinary issues or concerns at this time. Discussed potential causes of nephrolithiasis. Discussed further metabolic workup with 24 hour urine collection and labs; however patient declines at this time Continue drinking plenty of water daily. Continue vitamin B6 daily. Continue adding 1 oz of lemon juice to water daily. Renal ultrasound in one year. Follow-up in 1 year with imaging to be completed prior; or sooner with any issues, concerns, and or questions. Orders: Orders US renal BI 1 Year N20.0 - Calculus of kidney Urine Culture Today R82.90 - Unspecified abnormal findings in urine AMB Urinalysis Automated Today Z13.9 - Encounter for screening, unspecified Patient Instructions: The patient had an opportunity to ask questions regarding the treatment plan. All questions were answered. Physical exam, labs, and imaging were discussed and reviewed in detail. As well as risks, benefits, and discussion of treatment choices. No major barriers to understanding were identified. The patient expressed understanding and agreement with the above treatment plan. The patient was made aware they should contact our office by phone for worsening of their current condition, the appearance of new symptoms, or with any questions or concerns. Compliance is encouraged with any medications and follow up testing that is ordered. It is a privilege to be allowed the opportunity to participate in? your urological care.? Again, if you have any questions or concerns If you have any questions or concerns please do not hesitate to contact me. The office is [phone]. This note is constructed using voice recognition software. While every effort has been made to ensure accuracy fire tender errors may have been included. Yours sincerely, MARK Mario Coding Level of Care Code Est Pt Level 4 (68116) Diagnoses Kidney calculi N20.0 Foul smelling urine R82.90
== END 2023-12-05 15:16 | disposition home or self-care (01) ==
PROVIDERS: PCP Internal Medicine; Visit Provider Nurse Practitioner Family
DX: N20.0 Calculus of kidney (principal); R82.90 Unspecified abnormal findings in urine; Z13.9 Encounter for screening, unspecified
CPT/HCPCS: 99214

== ENCOUNTER 2024-02-15 08:09 | Outpatient (REF) | payer OTHER, SELFPAY ==
[2024-02-15 11:50] LABS: Alanine Aminotransferase 32 U/L (0-31); Albumin Level 4.3 g/dL (3.5-5.0); Alkaline Phosphatase 70 U/L (39-117); Anion Gap 12 (12-20); Aspartate Amino Transferase 28 U/L (5-31); Bilirubin Total 0.9 mg/dL (0.0-1.0); Blood Urea Nitrogen 10 mg/dL (9-16); Calcium 9.4 mg/dL (8.4-10.2); Carbon Dioxide 25 mmol/L (22-29); Chloride 108 mmol/L (96-108); Cholesterol 206 mg/dL (<200); Estimated Glomerular Filt Rate > 60; Glucose Random 84 mg/dL (60-115); HDL Cholesterol 40 mg/dL (>40); LDL Cholesterol Calculated 141 mg/dL (<100); Potassium 4.3 mmol/L (3.3-5.1); Sodium 141 mmol/L (135-145); Total Protein 7.2 g/dL (6.5-8.0); Triglycerides 129 mg/dL (<150)
== END 2024-02-15 08:10 | disposition home or self-care (01) ==
LOC: HO.HHCL 08:09
PROVIDERS: Visit Provider Student in an Organized Health Care Education/Training Program
DX: E78.5 Hyperlipidemia, unspecified (principal)
CPT/HCPCS: 36415; 80053; 80061

== ENCOUNTER 2024-09-04 14:29 | Outpatient (REF) | payer OTHER, SELFPAY ==
--- NOTE | ~2024-09-04 | XR_ITS ---
EXAMINATION: XR FOOT, RIGHT CLINICAL INFORMATION: Pain, neuropathy for one week. COMPARISON: None available. TECHNIQUE: AP, lateral, and oblique views of the right foot. FINDINGS: No acute fracture or dislocation. No joint space narrowing or marginal osteophytes. No osseous erosion. Small dorsal calcaneal spur. XR/XR foot RT min 3V IMPRESSION: 1. No acute osseous abnormality. 2. Small dorsal calcaneal spur. Electronically signed by: Kel Jade MD 09/04/2024 04:19 PM SHANNON WARREN
== END 2024-09-04 14:30 | disposition home or self-care (01) ==
LOC: HO.HHCX 14:29
PROVIDERS: Visit Provider General Practice
DX: M79.2 Neuralgia and neuritis, unspecified (principal)
CPT/HCPCS: 73630

== ENCOUNTER 2024-11-10 15:01 | Outpatient (REF) | payer OTHER, SELFPAY ==
--- NOTE | ~2024-11-10 | US_ITS ---
CLINICAL HISTORY: N20.0 - Calculus of kidney US Renal Comparison: None Findings: Right kidney normal size and echotexture, 11.6 cm length. Left kidney normal size and echotexture, 10.8 cm length. There are 2 small calculi within the lower pole of the right kidney, each measuring 3 mm in greatest dimension. There are small parenchymal or vascular calcifications within the left kidney. No collecting system dilatation of either kidney. Normal color Doppler. IMPRESSION: 1. Two small nonobstructive calculi within the right kidney. This document has been electronically signed by: Krissy Kohli MD on 11/11/2024 15:16:34
--- OUTSIDE RECORDS SUMMARY | 2024-11-10 17:53 | XMS_ITS | Encounter Summary ---
Author Organization [employer] Address [address] [place] [address] [address] [place] [address] Care Team Providers Care Set O Type Operator Name Role Phone Elana Rdz MD Primary Care Pro vider Reason for Referral * Imaging (Routine) - Authorized Specialty Diagnoses / Procedures Referred By Contac t Referred To Contact Radiology Diagnoses Breast cancer screening by mammogram Procedures BI Mammogram Screening Tomosynthesis Bilateral Angie Higgins CNM [address] [place] [address] Phone: tel: fax: [address] Phone: tel: fax: Referral ID Status Reason Start Date Expiration Date V isits Requested Visits Authorized [id number] Authorized 11/04/2024 11/04/2025 1 1 Reason for Visit * Reason Comments Gynecologic Exam Encounter Details Date Type Department Care Team (Latest Contact Info) Description 11/04/2024 3:30 PM EST Procedure Visit [facility] [address] [place], [place] [phone] Angie Higgins CNM [address] [place] [address] Visit for pelvic exam (Primary Dx); Breast cancer screening by mammogram; Fibroid Social History Tobacco Use Types Packs/Day Years Used Date Smoking Tobacco: Never Passive Smoke Exposure: Past Smokeless Tobacco: Never Tobacco Cessation:Counseling Given: Not Answered Alcohol Use Standard Drinks/Week Comments Never 0 (1 standard drink = 0.6 oz pur e alcohol) Depression Answer Date Recorded Patient Health Questionnaire-9 Score 0 08/29/2023 Patient Health Questionnaire-9 Score 0 08/29/2023 Last PHQ-9: Questionnaire Data Not on file 1 10/30/2022 Housing Stability Answer Date Recorded What is your housing situation today? I have amarjit campa 06/29/[address] you li ve. Do you have problems with any of the following? None of the above 06/29/2023 Food Insecurity Answer Date Recorded Within the past 12 months, y ou worried that your food would run out before you got money to buy more: Never True 06/29/2023 Within the past 12 months,th e food you bought just didn't last and you didn't have enough money to get more: Never True Transportation Answer Date Recorded In the past 12 months, has l ack of transportation kept you from medical appts, meetings, work or from getting things needed for daily living? No 08/22/2023 Utilities Answer Date Recorded In the past 12 months, has t he electric, gas, oil or water company threatened to shut off services in your home? No 06/29/2023 Depression Answer Date Recorded Patient Health Questionnaire-2 Score 0 08/29/2023 Comments No Sex and Gender Information Value Date Recorded Sex Assigned at Female 07/10/2022 10:15 AM EDT Legal Sex Female 10:15 AM EDT Gender Identity Female 07/10/2022 10:15 AM EDT Sexual Orientation Straight 07/10/2022 10 :15 AM EDT documented as of this encounter Last Filed Vital Signs Vital Sign Reading Time Taken Comments Blood Pressure 124/87 11/04/2024 3:15 PM EST Pulse 71 11/04/2024 3:15 PM EST Temperature 36.3 ??C (97.3 ??F) 11/04/2024 3:15 PM ES T Respiratory Rate 18 11/04/2024 3:15 PM EST Oxygen Saturation 98% 11/04/2024 3:15 PM EST Inhaled Oxygen Concentration - - Weight 69.6 kg (153 lb 6.4 oz) 11/04/2024 3:15 P M EST Height 167.6 cm (5' 6 ) 11/04/2024 3:15 PM EST Body Mass Index 24.76 11/04/2024 3:15 PM EST documented in this encounter Progress Notes * Angie Ronaldo, SERA - 11/04/2024 3:30 PM EST Subjective Patient ID: Erendira Quintanilla is a 64 y.o. female who presents for CIRCUS HAND visit Pap NIL/HPV neg 12/2018, 10/2023. Tiny fibroid (0.3cm decreased in size from previous imaging) seen on ultrasound 11/2023. G3, menopausal at 55. Rare vasomotor symptoms, not bothersome. 1 AMAB partner, no change since last visit. No safety concerns. No personal fracture. Rare stress urinary incontinence - Kegels taught at last visit with me. No real change, not bothered by symptoms. Mammogram BIRADS 1, cat b 11/2023 Review of Systems Genitourinary: Negative for dyspareunia, dysuria, frequency, genital sores, hematuria, menstrual problem, pelvic pain, urgency, vaginal bleeding, vaginal discharge and vaginal pain. No abnormal pap, no abnormal bleeding, no breast pain, no breast mass, no nipple discharge Objective BP 124/87 (BP Location: Left arm, Patient Position: Sitting, BP Cuff Size: Adult) Pulse 71 Temp97.3 ??F (36.3 ??C) (Temporal) Resp 18 Ht 5' 6 (1.676 m) Wt 153 lb 6.4 oz (69.6 kg) SpO2 98% BMI 24.76 kg/m?? Physical Exam Constitutional: Appearance: Normal appearance. Chest: Breasts: Right: Normal. No swelling, bleeding, inverted nipple, mass, nipple discharge, skin change or tenderness. Left: Normal. No swelling, bleeding, inverted nipple, mass, nipple discharge, skin change or tenderness. Genitourinary: General: Normal vulva. Labia: Right: No rash, tenderness, lesion or injury. Left: No rash, tenderness, lesion or injury. Vagina: Normal. No signs of injury and foreign body. No vaginal discharge, erythema, tenderness, bleeding or lesions. Cervix: No cervical motion tenderness, discharge, friability, lesion, erythema, cervical bleeding or eversion. Uterus: Normal. Not enlarged and not tender. Adnexa: Right adnexa normal and left adnexa normal. Right: No mass, tenderness or fullness. Left: No mass, tenderness or fullness. Comments: Ovaries non palpable bilaterally. Good tone with Kegels, mild cystocele with Valsalva Lymphadenopathy: Upper Body: Right upper body: No supraclavicular or axillary adenopathy. Left upper body: No supraclavicular or axillary adenopathy. Neurological: Mental Status: She is alert. Psychiatric: Mood and Affect: Mood normal. Behavior: Behavior normal. Assessment/Plan Diagnoses and all orders for this visit: Visit for pelvic exam [facility] 10/2028. Routine mammography. Report bleeding. BMD at 65, sooner if new risk factors. Rare stress urinary incontinence not bothersome, declines urogyn referral but knows she can call any time if she would like. Breast cancer screening by mammogram - BI Mammogram Screening Tomosynthesis Bilateral; Future Fibroid Decreased in size on last year's ultrasound. Denies pelvic pain/pressure, urinary frequency or vaginal bleeding. Will observe. Consider repeat ultrasound next year, sooner if any symptoms. documented in this encounter Plan of Treatment Upcoming Encounters Date Type Department Care Team (Late st Contact Info) Description 12/09/2024 10:45 AM EDT Office Visit [facility] [address] [place] [phone] Elana Rdz MD [address] [place] [phone] Scheduled Orders Name Type Priority Associated Diagnoses Orde r Schedule BI Mammogram Screening Tomosynthesis Bilateral Imaging Routine Breast cancer screening by mammogram Expected: 11/04/2024, Expires: 01/02/2026 documented as of this encounter Visit Diagnoses Diagnosis Visit for pelvic exam- Primary Breast cancer screening by mammogram Fibroid Leiomyoma of uterus, unspecified documented in this encounter Additional Health Concerns Assessment Noted Time PHQ-9 Depression Total Score: 0 08/29/20 23 2:18 PM EST documented as of this encounter Care Teams Set O Type Operator Relationship Specialty Start Date End Date Elana Rdz MD [address] [place] [phone] PCP - General Internal Medicine 05/24/23 documented as of this encounter
--- OUTSIDE RECORDS SUMMARY | 2024-11-10 17:53 | XMS_ITS | Encounter Summary ---
Author Organization [employer] Address [address] [place] [address] [address] [place] [address] Care Team Providers Care Solar Installation Supervisor Name Role Phone Elana Rdz MD Primary Care Pro vider Reason for Visit * Reason Onset Date Comments pre-op 07/17/2023 Encounter Details Date Type Department Care Team ([facility] st Contact Info) Description 07/17/2023 Telephone [facility] [address] [place], [place] [phone] Elana Rdz MD [address] [place], [place] [phone] pre-op Social History Tobacco Use Types Packs/Day Years Used Date Smoking Tobacco: Never Passive Smoke Exposure: Past Smokeless Tobacco: Never Alcohol Use Standard Drinks/Week Comments Never 0 (1 standard drink = 0.6 oz pur e alcohol) Depression Answer Date Recorded Patient Health Questionnaire-9 Score 0 12/08/2022 Housing Stability Answer Date Recorded What is [...] from getting things needed for daily living? Yes, it has kept me from medical appointments or getting medications. 06/17/2023 Utilities Answer Date Recorded In the past 12 months, has t he electric, gas, oil or water company threatened to shut off services in your home? No 06/29/2023 Depression Answer Date Recorded Patient Health Questionnaire-2 Score 0 12/08/2022 Comments Unknown Sex and Gender Information Value Date Recorded Sex Assigned at Female 07/10/2022 10:15 AM EDT Legal Sex Female 10:15 AM EDT Gender Identity Female 07/10/2022 10:15 AM EDT Sexual Orientation Straight 07/10/2022 10 :15 AM EDT documented as of this encounter Miscellaneous Notes * Telephone Encounter - Kalyani Ring - 07/17/2023 4:05 PM EST Tc from [facility] [place] requesting a pre-op Location: [facility], [address] [place] [address] ext [phone] Procedure: vitrectomy of left eye Date of Procedure: 08/30 Lab: discretion of PCP EKG: yes Anesthesia: will get back with INFO Name of surgeon: Dr. Gregorio Black documented in this encounter Plan of Treatment Upcoming Encounters Date Type Department Care Team ([facility] st Contact Info) Description 12/09/2024 10:45 AM EDT Office Visit [facility] [address] [place] [phone] Elana Rdz MD [address] [place] [phone] documented as of this encounter Visit Diagnoses Not on filedocumented in this encounter Additional Health Concerns Assessment Noted Time PHQ-9 Depression Total Score: 0 12/09/19 23 9:56 AM EDT documented as of this encounter Care Teams Solar Installation Supervisor Relationship Specialty Start Date End Date Elana Rdz MD [address] [place] [phone] PCP - General Internal Medicine 05/24/23 documented as of this encounter
--- OUTSIDE RECORDS SUMMARY | 2024-11-10 17:53 | XMS_ITS | Encounter Summary ---
Author Organization [employer] Address [address] [place] [address] 7 [place] [address] Care Team Providers Care Aircraft Communicator Name Role Phone Elana Rdz MD Primary Care Pro vider Reason for Visit * Reason Onset Date Comments Referral 06/29/2023 Encounter Details Date Type Department Care Team ([facility] st Contact Info) Description 06/29/2023 Telephone [facility] MEDICINE [address] [place], [place] [phone] Elana Rdz MD [address] [place] [address] Referral Social History Tobacco Use Types Packs/Day Years [...] encounter Miscellaneous Notes * Telephone Encounter - Vito Arguelles - 06/29/2023 9:21 AM EDT Tc from patient calling in regards to physical therapy in [place] requesting to be transferred to [facility] destination to home [place]. Patient speaks belarusian Please contact [phone] documented in this encounter Plan of Treatment Upcoming Encounters Date Type Department Care Team (Late st Contact Info) Description 12/09/2024 10:45 AM EDT Office Visit [facility] MEDICINE [address] [place] [phone] Elana Rdz MD [address] [place] [phone] documented as of this encounter Visit Diagnoses Not on filedocumented in this encounter Additional Health Concerns Assessment Noted Time PHQ-9 Depression Total Score: 0 12/09/19 9:56 AM EDT documented as of this encounter Care Teams Aircraft Communicator Relationship Specialty Start Date End Date Elana Rdz MD [address] [place] [phone] PCP - General Internal Medicine 05/24/23 documented as of this encounter
--- OUTSIDE RECORDS SUMMARY | 2024-11-10 17:53 | XMS_ITS | Encounter Summary ---
Author Organization [employer] Address [address] [place] [address] Care Team Providers Care Information Technology Architect Name Role Phone Elana Rdz MD Primary Care Pro vider Encounter Details Date Type Department Care Team (Latest Contact Info) Description 11/04/2024 Travel Social History Tobacco Use Types Packs/Day Years [...] AM EDT documented as of this encounter Plan of Treatment Upcoming Encounters Date Type Department Care Team (Late st Contact Info) Description 12/09/2024 10:45 AM EDT [address] [facility] MEDICINE [address] [place] [address] Elana Rdz MD [address] [place] [phone] documented as of this encounter Visit Diagnoses Not on filedocumented in this encounter Additional Health Concerns Assessment Noted Time PHQ-9 Depression Total Score: 0 08/29/20 2:18 PM EST documented as of this encounter Care Teams Information Technology Architect Relationship Specialty Start Date End Date Elana Rdz MD [address] [place] [phone] PCP - General Internal Medicine 05/24/23 documented as of this encounter
--- OUTSIDE RECORDS SUMMARY | 2024-11-10 17:53 | XMS_ITS | Encounter Summary ---
Author Organization [employer] Address [address] [place] [address] [address], [place] [address] Care Team Providers Care Purchasing Manager/Sales Name Role Phone Mayda Valerio [facility] Primary Care Provider [phone] Elana Rdz MD Primary Care Pro vider Encounter Details Date Type Department Care Team (Latest Contact Info) Description 07/27/2021 Abstract [facility] CONVERSIONS Dental, Provider, DDS Social History Tobacco Use Types Packs/Day Years Used Date Smoking Tobacco: Never Assessed Comments Unknown Sex and Gender Information Value [...] Description 12/09/2024 10:45 AM EDT Office Visit [facility] MEDICINE [address] [place] [address] Elana Rdz MD [address] [place] [address] documented as of this encounter Visit Diagnoses Not on filedocumented in this encounter Care Teams Purchasing Manager/Sales Relationship Specialty Start Date End Date Mayda Valerio FNP [address] [place] [address] PCP - General Family Medicine 05/08/22 05/23/23 Elana Rdz MD [address] [place] [phone] PCP - General Internal Medicine 05/24/23 documented as of this encounter
--- OUTSIDE RECORDS SUMMARY | 2024-11-10 17:53 | XMS_ITS | Encounter Summary ---
Author Organization [employer] Address [address] 7[address] [place] [address] Care Team Providers Care Factory Engineer Name Role Phone Elana Rdz MD Primary Care Pro vider Encounter Details Date Type Department Care Team (Late st Contact Info) Description 12/19/2023 Orders Only [facility] MEDICINE [address] [place] [address] ProviderIsael MD Social History Tobacco Use Types Packs/Day Years [...] Description 12/09/2024 10:45 AM EDT Office Visit [facility] MEDICINE [address] [place] [phone] Elana Rdz MD [address] [place] [phone] documented as of this encounter Procedures Procedure Name Priority Date/Time Associated Diagnosis Comments HM COLONOSCOPY Routine 12/06/2017 8:04 AM EDT HM COLONOSCOPY Routine 02/20/2013 8:02 AM EDT documented in this encounter Results * Hm Colonoscopy (12/06/2017 8:04 AM EDT) Historical Provider HEALTH MAINTENANCE Final Result * Hm Colonoscopy (02/20/2013 8:02 AM EDT) us Historical Provider HEALTH MAINTENANCE Final Result documented in this encounter Visit Diagnoses Not on filedocumented in this encounter Additional Health Concerns Assessment Noted Time PHQ-9 Depression Total Score: 0 08/29/20 2:18 PM EST documented as of this encounter Care Teams Factory Engineer Relationship Specialty Start Date End Date Elana Rdz MD [address] [place] [address] [phone] PCP - General Internal Medicine 05/24/23 documented as of this encounter
--- OUTSIDE RECORDS SUMMARY | 2024-11-10 17:53 | XMS_ITS | Encounter Summary ---
Author Organization [employer] Address [address] [place] [address] [address] [place] [address] Care Team Providers Care Mental Retardation Nurse Name Role Phone Mayda Valerio [facility] Primary Care Provider [phone] Elana Rdz MD Primary Care Pro vider Encounter Details Date Type Department Care Team (Latest Contact Info) Description 04/08/2019 Abstract [facility] CONVERSIONS Dental, Provider, DDS Social History Tobacco [...] Description 12/09/2024 10:45 AM EDT Office Visit [facility] MEDICINE [address] [place], [place] [phone] Elana Rdz MD [address] [place] [address] documented as of this encounter Visit Diagnoses Not on filedocumented in this encounter Care Teams Mental Retardation Nurse Relationship Specialty Start Date End Date Mayda Valerio FNP [address] [place] [address] PCP - General Family Medicine 05/08/22 05/23/23 Elana Rdz MD [address] [place] [phone] PCP - General Internal Medicine 05/24/23 documented as of this encounter
--- OUTSIDE RECORDS SUMMARY | 2024-11-10 17:53 | XMS_ITS | Clinical Summary ---
Author Organization [facility] Address [address] [place] [address] Care Team Providers Care Subway Car Repairer Name Role Phone Unavailable Primary Care Provider Unavailabl e Social History Tobacco Use Types Packs/Day Years Used Date Smoking Tobacco: Never Assessed Comments Unknown Sex and Gender Information Value Date Recorded Sex Assigned at Not on file Legal Sex Female 7:32 PM EST Gender Identity Not on file Sexual Orientation Not on file Plan of Treatment Health Maintenance Due Date Last Done Comments DTaP,Tdap,and Td Vaccines (1 - Tdap) 1981 Cervical Cancer Screening: P ap Smear 1983 Pneumococcal Vaccine: 50+ Ye ars (1 of 1 - PCV) 02/05/2012 Zoster Vaccines (1 of 2) 02/05/2012 Breast Cancer Screening 06/03/2020 06/03/2018 COVID-19 Vaccine (1 - 2023-2 5 season) 2024 Influenza Vaccine (#1) 2024 RSV Immunization Patients 60 + Years Old (1 - 1-dose 75+ series) 2037 HIB Vaccines Aged Out No longer eligi ble based on patient's age to complete this topic HPV Vaccines Aged Out No longer eligi ble based on patient's age to complete this topic Hepatitis A Vaccines Aged Out No long er eligible based on patient's age to complete this topic Hepatitis B Vaccines Aged Out No long er eligible based on patient's age to complete this topic IPV Vaccines Aged Out No longer eligi ble based on patient's age to complete this topic MMR Vaccines Aged Out No longer eligi ble based on patient's age to complete this topic Meningococcal ACWY Vaccine Aged Out N o longer eligible based on patient's age to complete this topic Meningococcal B Vacine Aged Out No lo nger eligible based on patient's age to complete this topic Pneumococcal Vaccine: Pediat rics (0 to 5 Years) and At-Risk Patients (6 to 64 Years) Aged Out No longer eligi ble based on patient's age to complete this topic RSV Immunization Patients Un eugenia 20 months Aged Out No longer eligible b ased on patient's age to complete this topic Varicella Vaccines Aged Out No longer eligible based on patient's age to complete this topic Procedures Procedure Name Priority Date/Time Associated Diagnosis Comments [facility] SCREENING DIGITAL Routine 06/03/2018 8:36 AM EDT Encounter for screening mammogram for malignant neoplasm of breast from Last 3 Months or Most Recently Relevant to Health Maintenance Results * KAY SCREENING DIGITAL (06/03/2018 8:36 AM EDT) Anatomical Region Laterality Modality Mammography 05/29/2018 2:09 PM EDT Narrative 06/03/2018 8:36 AM EDT [facility] Diagnostic Imaging Department [address] [place] [address] Patient: ??LILIANAERENDIRA DELUNA I ?/Age/Sex: 1960 - 58 - F Unit#: ??[id number] ? Location/Status: ??SPDIMAM/REG CLI ? Mnemonic/Ordering Site: ??DIGSC/SPMAM Ordering Physician: ??DENZEL SAUCEDO TANK TERMINAL GAUGER Kay Screening Digital - 06/01/18 - 1038 EXAM: [facility] Screening Digital EXAM DATE AND TIME: 06/01/2018 10:38 AM HISTORY: ??Screening. Three maternal aunts had breast carcinoma. COMPARISON: ??05/26/17, 05/20/16, 04/10/15, 04/04/14, 02/15/13 TECHNIQUE: CC and MLO views of both breasts were obtained using full field digital mammography. Bilateral digital breast tomosynthesis was performed in the MLO projection. Computer aided detection with the [employer] 7.2-H was employed. TISSUE DENSITY: c. The breasts are heterogeneously dense, which may obscure small masses. FINDINGS: No suspicious masses, grouped microcalcifications, or areas of architectural distortion are seen. There are scattered microcalcifications, unchanged from previous. The skin and vascularity are unremarkable. IMPRESSION: Stable mammographic appearance of the breasts. ??No evidence of malignancy is seen. A negative mammogram in the presence of a clinically suspicious palpable abnormality does not preclude the possibility of malignancy or alter the indications for biopsy. BI-RADS: ??Category 2: Benign RECOMMENDATION(S): 1: Routine screening mammogram BILATERAL in 1 year. [address]1077, 86347 3342F, 7025F Dictating Physician: ??RAMONA CAMEJO MD Electronically Signed by: ??RAMONA CAMEJO MD Dic Date/Time: ??06/03/18 0835 Sign date/Time: ??06/03/18 0836 Procedure Note Ramona Camejo MD - 08/29/2022 [facility] Diagnostic Imaging Department [address] [place] [address] Patient: ERENDIRA QUINTANILLA Ihsan /Age/Sex: 1960 - 58 - F Unit#: [id number] Location/Status: SPDIMAM/REG CLI Mnemonic/Ordering Site: [facility] Ordering Physician: DENZEL SAUCEDO TANK TERMINAL GAUGER [facility] Screening Digital - 06/01/18 - 1038 EXAM: [facility] Screening Digital EXAM DATE AND TIME: 06/01/2018 10:38 AM HISTORY: Screening. Three maternal aunts had breast carcinoma. COMPARISON: 05/26/17, 05/20/16, 04/10/15, 04/04/14, 02/15/13 TECHNIQUE: CC and MLO views of both breasts were obtained using fullfield digital mammography. Bilateral digital breast tomosynthesis was performedin the MLO projection. Computer aided detection with the [employer] Helmetsas employed. TISSUE DENSITY: c. The breasts are heterogeneously dense, which mayobscure small masses. FINDINGS: No suspicious masses, grouped microcalcifications, or areas ofarchitectural distortion are seen. There are scattered microcalcifications, unchangedfrom previous. The skin and vascularity are unremarkable. IMPRESSION: Stable mammographic appearance of the breasts. No evidence of malignancyis seen. A negative mammogram in the presence of a clinically suspicious palpable abnormality does not preclude the possibility of malignancy or alter the indications for biopsy. BI-RADS: Category 2: Benign RECOMMENDATION(S): 1: Routine screening mammogram BILATERAL in 1 year. 45533, 21517 3342F, 7025F Dictating Physician: RAMONA CAMEJO MD Electronically Signed by: RAMONA CAMEJO MD Dic Date/Time: 06/03/18834 Sign date/Time: 06/03/18835 us Denzel Saucedo NP IMG BI PROCEDURES Final Result from Last 3 Months or Most Recently Relevant to Health Maintenance
--- OUTSIDE RECORDS SUMMARY | 2024-11-10 17:53 | XMS_ITS | Encounter Summary ---
Author Organization [employer] Address [address] [place] [address] 7 [place] [address] Care Team Providers Care Joint Terminal Attack Controller Name Role Phone Elana Rdz MD Primary Care Pro vider Reason for Visit * Reason Onset Date Comments change referral 11/03/2024 Encounter Details Date Type Department Care Team ([facility] st Contact Info) Description 11/03/2024 Telephone [facility] MEDICINE [address] [place], [place] [phone] Elana Rdz MD [address] [place] [address] change referral Social History Tobacco Use Types Packs/Day Years [...] is your housing situation today? I have amarjitkiera campa 06/29/[address] you [...] encounter Miscellaneous Notes * Telephone Encounter - Shaneka Miranda - 11/03/2024 10:49 AM EST Tc from pt stating called to head of talent management to make an appointment but it is completely full, pt is requesting to be referred to another facility that is near [place], [place]. Any questions contact pt [phone] Romansh documented in this encounter Plan of Treatment Upcoming Encounters Date Type Department Care Team (Late st Contact Info) Description 12/09/2024 10:45 AM EDT Office Visit [facility] MEDICINE [address] [place] [address] Elana Rdz MD [address] [place] [phone] documented as of this encounter Visit Diagnoses Not on filedocumented in this encounter Additional Health Concerns Assessment Noted Time PHQ-9 Depression Total Score: 0 08/29/20 2:18 PM EST documented as of this encounter Care Teams Joint Terminal Attack Controller Relationship Specialty Start Date End Date Elana Rdz MD [address] [place] [phone] PCP - General Internal Medicine 05/24/23 documented as of this encounter
--- OUTSIDE RECORDS SUMMARY | 2024-11-10 17:54 | XMS_ITS | Clinical Summary ---
Author Organization [employer] Address [address] [place] [address] [address] [place] [address] Care Team Providers Care Detective Sergeant Name Role Phone Elana Rdz MD Primary Care Pro vider Allergies Active Allergy Reactions Criticality Noted Date Comments Gentamicin 10/28/2010 Other reaction(s): unspecified Sulfamethoxazole 10/28/2010 Other reaction(s): unspecified Sulfamethoxazole-Trimethoprim 2022 Trimethoprim 10/28/2010 Other reaction(s): unspecified Medications Acetaminophen Extra Strength 500 MG tablet Take 500 mg by mouth every 6 (six) hours if needed. 2 Active pyridoxine (Vitamin B-6) 50 MG tablet Take 1 tablet by mouth in the morning. 2 Active brimonidine (AlphaGAN P) 0.2 % ophthalmic solution INSTILL 1 DROP IN THE LEFT EYE TWICE DAILY 3 Active dorzolamide (Trusopt) 2 % ophthalmic solution INSTILL 1 DROP INTO LEFT EYE TWICE A DAY 3 Active ketorolac (Acular) 0.5 % ophthalmic solution APPLY 1 DROP IN AFFECTED EYE(S) THREE TIMES DAILY DIRECTED. START 2 DAYS BEFORE SURGERY 3 Active omega-3 (Fish Oil) 1000 MG capsule TAKE 1 CAPSULE BY MOUTH ONCE DAILY IN THE MORNING 30 capsule 2 4 Active hydrOXYzine HCl (Atarax) 25 MG tablet Take 25 mg by mouth if needed each day for anxiety. Active albuterol (2.5 MG/3ML) 0.083% nebulizer solutionIndicatio ns:Mild intermittent asthma, unspecified whether complicated INHALE 1 AMPULE USING A NEBULIZER THREE TIMES DAILY 90 mL 6 4 Active ondansetron (Zofran) 4 MG tablet Take 1 tablet (4 mg) by mouth if needed each day for nausea or vomiting. 30 tablet 4 Active meclizine (Antivert) 25 MG tablet TAKE 1 TABLET BY MOUTH THREE TIMES DAILY IN THE MORNING, AT NOON, AND AT BEDTIME NEEDED FOR DIZZINESS OR FOR NAUSEA 60 tablet 4 Active hydrOXYzine pamoate (Vistaril) 25 MG capsule TAKE 1 CAPSULE BY MOUTH FOUR TIMES DAILY NEEDED FOR ANXIETY 60 capsule 3 4 Active omeprazole (PriLOSEC) [address] capsuleIndication s:Dyspepsia TAKE 1 CAPSULE BY MOUTH EVERY DAY BEFORE BREAKFAST 90 capsule 4 Active dorzolamide-timol ol (Cosopt) 2-0.5 % ophthalmic solution INSTILL 1 DROP IN THE LEFT EYE TWICE DAILY 4 Active ofloxacin (Ocuflox) 0.3 % ophthalmic solution PLACE 1 DROP IN THE LEFT EYE FOUR TIMES DAILY 4 Active prednisoLONE acetate (Pred-Forte) 1 % ophthalmic suspension INSTILL 1 DROP IN THE LEFT EYE EVERY 2 HOURS WHILE AWAKE 4 Active Active Problems Problem Noted Date Diagnosed Date Neuropathic pain of right foot 09/05/2024 Assessment & Plan (09/05/2024 3:41 PM EST): Normal exam atraumatic onset of pain. Possibly related to sciatica, or heel spur? Will refer to podiatry. Address with primary care if not improved after routine care (rest, elevation, compression, NSAIDs) and podiatry consult. Patient is not diabetic (last A1C 5.4) and due to recent onset of problem, will not perform laboratory workup at this time. Open fracture of tooth 05/27/2024 Neck nodule 10/10/2023 Hyperlipidemia 10/10/2023 Transaminitis 10/10/2023 Non-restorable tooth 10/03/2023 Calculus of kidney 08/29/2023 08/29/2023 Health care maintenance 08/29/2023 Constipation 08/29/2023 Mild intermittent asthma 04/19/2018 Gastroesophageal reflux disease 02/01/2018 Assessment & Plan (05/09/2023 9:29 AM EDT): She's doing well, sxs are mostly related to taking meds on empty stomach. She will take Omeprazole on the morning of surgery with a sip of water. Benign paroxysmal positional vertigo 03/14/2012 Assessment & Plan (05/09/2023 9:30 AM EDT): She has hx vertigo, doing well on meclizine. She requested a referral for therapy Referral to Vestibular therapy sent Resolved Problems Problem Noted Date Diagnosed Date Resolved Date Family history of cancer 08/29/202309/2023 Dizziness 04/19/2018 12/08/2022 Encounters Date Type Department Care Team Description 11/04/2024 3:30 PM EST Procedure Visit [facility] [address] [place] [phone] Harish Valenzuela CNM Visit for pelvic exam (Primary Dx); Breast cancer screening by mammogram; Fibroid 11/04/2024 Travel 11/03/2024 Telephone [facility] [address] [place] [phone] Elana Rdz MD change referral 09/15/2024 2:30 PM EST Office Visit [facility] [address] [place] [address] Reinaldo Albrecht, DAVIS Dental abscess (Primary Dx) 09/05/2024 Telephone [facility] [address] [place] [phone] Krista Berger MD results 09/04/2024 2:00 PM EST Office Visit [address] [address] Krista Berger MD Neuropathic pain of right foot (Primary Dx) 09/04/2024 Travel 09/04/[address] [address] Elana Rdz MD Nurse Triage 09/01/2024 2:15 PM EST Office Visit [facility] [address] [place] [address] Reinaldo Albrecht DMD Dental caries (Primary Dx) 08/29/2024 Travel 08/14/2024 3:00 PM EST Office Visit [facility] [address] [place] [address] Kael Lloyd DMD from Last 3 Months Immunizations Name Administration Dates Next Due Hep B, adult 07/17/1996,02/21/1996,01/16/1996 INFLUENZA INJECTABLE QUADRIV ALANT CCIIV4 MDCK Multi-dose vial 06/21/2019 Influenza Injectable Quadriv alant Preservative Free IIV4 MDCK 06/08/2018,06/30/2017 Influenza Whole 05/24/2009 Influenza injectable quadriv alent preservative free 06/25/2022,06/26/2021,06/10/2020,05/08,06/02/2016 Influenza, IIV3, injectable 06/02/2010 Influenza, Injectable, MDCK, preservative free 06/15/2024 Influenza, Split (incl. bernardo fied surface antigen) 06/24/2013 MMR 02/11/2009 Novel Dfdjraejl-O4V9-10, all formulations 10/04/2009 Pneumococcal Polysaccharide PPSV23 07/16/2008 TD (adult), 2 Lf tetanus tox oid, preservative free, adsorbed 11/08/1992 Tdap 08/29/2023,09/19/2012 Zoster, Recombinant 08/05/2022,01/30/2022 Family History Medical History Relation Name Comments bladder cancer Brother Cancer Daughter vaginal vs cerv ical, doing well as of 10/2024 Heart attack Father Asthma Mother Relation Name Status Comments Brother Daughter Father Mother Social History Tobacco Use Types Packs/Day Years [...] Orientation Straight 07/10/2022 10 :15 AM EDT Last Filed Vital Signs Vital Sign Reading [...] Mass Index 24.76 11/04/2024 3:15 PM EST Plan of Treatment Upcoming Encounters Date Type Department Care Team (Late st Contact Info) Description 12/09/2024 10:45 AM EDT Office Visit [facility] [address] [place] [phone] Elana Rdz MD [address] [place] [address] Health Maintenance Due Date Last Done Comments CT Colonography 1960 Dental Prophylaxis 1960 Dental X-Ray: Full Mouth 1962 FIT DNA/Cologuard 1960 FIT 1960 FOBT 1960 Sigmoidoscopy 1960 Alcohol/Substance Use Screening 1974 Pneumococcal Vaccine: 50+ Years (2 of 2 - PCV) 07/16/2009 07/16/2008 RSV Patients and Patients Aged 60 years or older (1 - Risk 60-74 years 1-dose series) 2022 COVID-19 Vaccine ( season) 2024 10/14/2021, 01/18/2021, 12/21/2020 Depression Screening 08/29/2024 08/29/2023, 08/29/20 SDOH Screening 12/31/2024 01/01/2024 Dental Oral Exam 02/13/2025 08/14/2024 Dental X-Ray: Bitewings 08/15/2025 08/14/20 24, 11/22/2023, 07/25/2023, Additional history exists Tobacco Screening 11/04/2025 11/04/2024 Mammogram 11/23/2025 11/24/2023, 10/29/2021 Colonoscopy 12/07/2027 12/06/2017, 02/20/2013 Colorectal Cancer Screening 12/07/2027 Cervical Cancer Screening 10/22/2028 HPV/Cotest 10/22/2028 10/22/2023, 01/02/2019 Pap Smear 10/22/2028 10/22/2023 DTaP/Tdap/Td Vaccines (3 - Td or Tdap) 08/29/2033 08/29/2023, 09/19/2012, 11/08/1992 Hepatitis B Vaccines Completed 07/17/1996, 02/21/1996, 01/16/1996 Zoster Vaccines Completed 08/05/2022, 01/30/2022 HIV Screening Completed 09/04/2023, 12/05/2021 Hepatitis C Screening Completed 09/04/2023 Influenza Vaccine Completed 06/15/2024, , 06/26/2021, Additional history exists HIB Vaccines Aged Out No longer eligi [...] patient's age to complete this topic Meningococcal Vaccine Aged Out No juan antonio param eligible based on patient's age to complete this topic RSV under 20 months Aged Out No longe r eligible based on patient's age to complete this topic Rotavirus Vaccines Aged Out No longer eligible based on patient's age to complete this topic Procedures Procedure Name Priority Date/Time Associated Diagnosis Comments CASE PRESENTATION, DETAILED AND EXTENSIVE TREATMENT PLANNING Routine 09/15/2024 2:30 PM EST 4 RETREATMENT OF PREVIOUS ROOT CANAL THERAPY - PREMOLAR Routine 09/15/2024 2:30 PM EST XR FOOT 3+ VIEWS RIGHT Routine 2:29 PM EST CASE PRESENTATION, DETAILED AND EXTENSIVE TREATMENT PLANNING Routine 09/01/2024 2:15 PM EST 4 LIMITED ORAL EVALUATION - PROBLEM FOCUSED Routine 09/01/2024 2:15 PM EST CASE PRESENTATION, DETAILED AND EXTENSIVE TREATMENT PLANNING Routine 08/14/2024 3:00 PM EST INTRAORAL - PERIAPICAL EACH ADDITIONAL RADIOGRAPHIC IMAGE Routine 08/14/2024 3:00 PM EST INTRAORAL - PERIAPICAL EACH ADDITIONAL RADIOGRAPHIC IMAGE Routine 08/14/2024 3:00 PM EST 4 INTRAORAL - PERIAPICAL FIRST RADIOGRAPHIC IMAGE Routine 08/14/2024 3:00 PM EST BITEWINGS - 4 RADIOGRAPHIC IMAGES Routine 08/14/2024 3:00 PM EST PERIODIC ORAL EVALUATION - ESTABLISHED PATIENT Routine 08/14/2024 3:00 PM EST BI MAMMOGRAM SCREENING TOMOSYNTHESIS BILATERAL Routine 11/24/2023 9:55 AM EDT Encounter for screening mammogram for malignant neoplasm of breast HPV MRNA E6/E7 REFLEX TO HPV 16, 18/45 Routine 10/22/2023 11:11 AM EST PAP SMEAR Routine 10/22/2023 11:11 AM EST Cervical cancer screening HEPATITIS C AB W/REFL TO HCV RNA, QN, PCR Routine 09/04/2023 8:10 AM EST Annual physical exam HIV 1/2 ANTIGEN/ANTIBODY, FOURTH GENERATION W/RFL Routine 09/04/2023 8:10 AM EST Annual physical exam HM COLONOSCOPY Routine 12/06/2017 8:04 AM EDT from Last 3 Months or Most Recently Relevant to Health Maintenance Results * XR Foot 3+ Views Right (09/04/2024 2:29 PM EST) Anatomical Region Laterality Modality Lower Extremities, Foot Right Radiogra phic Imaging 09/04/2024 2:29 PM EST Narrative 09/04/2024 4:22 PM EST ?[facility] ?[address] ?[place] [address] ?XRay Report ? Signed ? Patient: Erendira Quintanilla I ?MR#: [id number] ?? [id number] ? : 1960 ?Acct:[id number] ? Age/Sex: 64 / F ?ADM Date: 09/04/24 ? Loc: HO.HHCX ? Attending Dr: Krista Berger MD ? Ordering Physician: Krista Berger ?? Date of Service: 09/04/24 ?? Procedure(s): XR foot RT min 3V ?? Accession Number(s): [id number] ? cc: Krista Berger ? EXAMINATION: ?? XR FOOT, RIGHT ? CLINICAL INFORMATION: ?? Pain, neuropathy for one week. ? COMPARISON: ?? None available. ? TECHNIQUE: ?? AP, lateral, and oblique views of the right foot. ? FINDINGS: ?? No acute fracture or dislocation. No joint space narrowing or marginal ?? osteophytes. No osseous erosion. Small dorsal calcaneal spur. ? XR/XR foot RT min 3V ?? IMPRESSION: ?? 1. No acute osseous abnormality. ?? 2. Small dorsal calcaneal spur. ? Electronically signed by: ??Kel Jade MD ??09/04/2024 04:19 PM EST ?? RP ? Dictated By: ?Kel Jade MD ? Signed By: ?<Electronically signed by Kel Jade MD in OV> ?09/04/24 1619 ? DD/ 1429 ? TD/TT: 09/04/24 1443 ? Functional Director: SR ? Procedure Note Donotmargeinterpreter, Image - 09/04/2024 [facility] [address] [place] [address] XRay Report Signed Patient: Erendira Quintanilla IMR#: [id number] : 2Acct:[id number] Age/Sex: 64 / FADM Date: 09/04/24 Loc: HO.HHCX Attending Dr: Krista Berger MD Ordering Physician: Krista Berger Date of Service: 09/04/24 Procedure(s): XR foot RT min 3V Accession Number(s): [id number] cc: Krista Berger EXAMINATION: XR FOOT, RIGHT CLINICAL INFORMATION: Pain, neuropathy for one week. COMPARISON: None available. TECHNIQUE: AP, lateral, and oblique views of the right foot. FINDINGS: No acute fracture or dislocation. No joint space narrowing or marginal osteophytes. No osseous erosion. Small dorsal calcaneal spur. XR/XR foot RT min 3V IMPRESSION: 1. No acute osseous abnormality. 2. Small dorsal calcaneal spur. Electronically signed by: Kel Jade MD 09/04/2024 04:19 PM [facility] Dictated By: Kel Jade MD Signed By: <Electronically signed by Kel Jade MD in OV> 09/04/24 1619 DD/ 1429 TD/TT: 09/04/24 1443 Functional Director: SR Krista Berger MD IMG XR PROCEDURES Final Result * BI Mammogram Screening Tomosynthesis Bilateral (11/24/2023 9:55 AM EDT) Anatomical Region Laterality Modality Breast Bilateral Mammography 11/24/2023 9:55 AM EDT Narrative 11/25/2023 12:51 PM EDT ? [facility] ? [address] ?[place] [address] ? Mammography Report ? Signed ? Patient: Dwight,Erendira I ?MR#: [id number] ?? [id number] ? : 1960 ?Acct:[id number] ? Age/Sex: 63 / F ?ADM Date: 11/24/23 ? Loc: HO.MAMMO ? Attending Dr: Elana Mcgowan MD ? Ordering Physician: Elana Rdz MD ?Re ?? sults: 1Negative ? Date of Service: 11/24/23 ?Follow Up: 1 Year From Orig ?? inal Mammogram ? Procedure(s): MM tomosynthesis screening BI ?? Accession Number(s): [id number] ? cc: Elana Rdz MD ? EXAMINATION: ?? MM SCREENING DIGITAL BREAST TOMOSYNTHESIS, BILATERAL ? CLINICAL INFORMATION: ? Screening. Asymptomatic. ? COMPARISON: ?? Mammography: This study is compared with prior exams dating back to ?? 2017. ? TECHNIQUE: ?? Digital breast tomosynthesis is performed in both the craniocaudal and ?? mediolateral oblique views along with computer-aided detection (CAD). ?? Synthesized 2D images are generated from the tomosynthesis. ? FINDINGS: ?? There are scattered areas of fibroglandular density (ACR BI-RADS breast ?? composition Category b). ? There are no significant masses, abnormal calcifications, or other ?? abnormalities. ? MM/MM tomosynthesis screening BI ?? IMPRESSION: ?? No mammographic evidence of malignancy. ? ASSESSMENT: ? BI-RADS BI-RADS 1 - Negative ? RECOMMENDATION: ?? Routine annual mammography screening. ? 1 year F/U ? This examination should not preclude the clinical evaluation of a ?? suspicious palpable abnormality. ? This patient's information was entered into a reminder system with a ?? target due date for their next mammogram. ? Dictated By: ?Parvin Garcia MD ? Signed By: ?<Electronically signed by Parvin Garcia MD in OV> ? 11/25/237 ? DD/ 0955 ? TD/TT: ? Functional Director: ? Procedure Note Nick, Image - 11/25/2023 [facility] [address] [place] [address] Mammography Report Signed Patient: Erendira Quintanilla IMR#: [id number] : 2Acct:[id number] Age/Sex: 63 / FADM Date: 11/24/23 Loc: HO.MAMMO Attending Dr: Elana Mcgowan MD Ordering Physician: Elana Rdz sults: 1Negative Date of Service: 11/24/23Follow Up: 1 Year From Orig inal Mammogram Procedure(s): MM tomosynthesis screening BI Accession Number(s): [id number] cc: Elana Rdz MD EXAMINATION: MM SCREENING DIGITAL BREAST TOMOSYNTHESIS, BILATERAL CLINICAL INFORMATION: Screening. Asymptomatic. COMPARISON: Mammography: This study is compared with prior exams dating back to 2017. TECHNIQUE: Digital breast tomosynthesis is performed in both the craniocaudal and mediolateral oblique views along with computer-aided detection (CAD). Synthesized 2D images are generated from the tomosynthesis. FINDINGS: There are scattered areas of fibroglandular density (ACR BI-RADS breast composition Category b). There are no significant masses, abnormal calcifications, or other abnormalities. MM/MM tomosynthesis screening BI IMPRESSION: No mammographic evidence of malignancy. ASSESSMENT: BI-RADS BI-RADS 1 - Negative RECOMMENDATION: Routine annual mammography screening. 1 year F/U This examination should not preclude the clinical evaluation of a suspicious palpable abnormality. This patient's information was entered into a reminder system with a target due date for their next mammogram. Dictated By: Parvin Garcia MD Signed By: <Electronically signed by Parvin Garcia MD in OV> 11/25/23 1247 DD/ 0955 TD/TT: Functional Director: us Elana Mcgowan MD IMG BI PROCEDURES Edited Result - Final * HPV mRNA E6/E7 w/Reflex to HPV Genotypes 16, 18/45 (10/22/2023 11:11 AM EST) HPV nRNA E6/E7 Not Detected Not Detected [facility] Comment:Methodology: Transcr iption-Mediated AmplificationThis assay detects E6/E7 viral messenger RNA (mRNA) from 14high-risk HPV types (16,18,31,33,35,39,45,51,52,56,58,59,66,68).Cervical sources are required for HPV testing.If a vaginal source from a patient who has had atotal hysterectomy with removal of cervix wassubmitted, please contact the testing laboratoryfor alternative testing options.For additional information, please refer tohttp://education.[employer]/faq/LFT017q2(This link if provided for information/educational purposes only.)THIS TEST WAS PERFORMED AT:[facility] [place] [phone] COYLE MD HPV mRNA E6/E7 TNP [facility] HPV 16 [facility] HPV 18/45 RNA [facility] 10/22/2023 11:1 1 AM EST 10/23/2023 8:00 AM EST Harish MOORE LAB CYTOLOGY ORDERABLES F inal Result [facility] [address] [place] [phone] * Pap Smear (10/22/2023 11:11 AM EST) Swab Cervix uteri structure / Unknown 10/22/2023 11:11 AM EST 10/23/2023 8:00 AM EST [facility] - 11/06/2023 1:21 PM EST ----- ------- Name: Erendira Quintanilla I ?Age/Sex: 63/F ? : 1960 Unit#: [id number] ?? Attend Dr: HARISH VALENZUELA [facility] ?Re10/22/23 ?Status: DEP REF ? Location: HO.LNP ?Disch: ? ----- ------- SPEC : [id number] ? RECD: 10/23/23-799 ? STATUS: ??SOUT ? REQ NUM: [id number] ? MATTHEW: 10/22/23-1111 ? SUBM DR: HARISH VALENZUELA CNM ? ENTERED: ??10/23/23-852 ?SP TYPE: Pap Smr ?OTHR : ? ORDERED: ??Pap Smear ? Interpretation ?? Satisfactory for evaluation. ?? Mild inflammation. ?? Negative for intraepithelial lesion or malignancy. ?HPV mRNA E6/E7: ?NOT DETECTED ? This assay detects E6/E7 viral messenger RNA (mRNA) from 14 high-risk HPV types (16, 18, ?? 31, 33, 35, 39, 45, 51, 52, 56, 58, 59, 66, 68) ?? HPV testing performed by [facility], [place], [place]. ??See reference laboratory ?? portion of the EMR for entire report. ?Clinical Information LMP: Postmenopausal Previous PAP test: Unknown date/findings ? Material Received ?? ThinPrep-Cervical ----- ------- Signed (signature on file) GALILEO Hutchins (ASCP) 11/06/23 1321 ? ----- ------- ? END OF REPORT ? Harish MOORE LAB CYTOLOGY ORDERABLES F inal Result Performing Organization Address [facility] Co de Phone Number [facility] [address] [place] [phone] * Hepatitis C Antibody with Reflex to HCV, RNA, Quantitative, Real-Time PCR (09/04/2023 8:10 AM EST) [facility] Hepatitis C Antibody Nonreactive Nonreactive [facility] Comment:Antibodies to HCV no t detected; does not exclude early acuteHCV infection. Blood Venous blood specimen / Unknown 09/04/2023 8:10 AM EST 09/04/2023 11:19 AM EST us Elana Mcgowan MD LAB BLOOD ORDERAB LES Final Result Performing Organization Address [facility] Co de Phone Number [facility] [address] [place] [phone] * HIV-1/2 Antigen and Antibodies, Fourth Generation, with Reflexes (09/04/2023 8:10 AM EST) Pathologist [facility] HIV AB/AG Nonreactive Nonreactive [facility] Comment:HIV-1 p24 Ag and/or HIV-1/HIV-2 Ab not detected.A test result that is nonreactive does not exclude thepossibility of exposure to or infection with HIV-1 and/orHIV-2. Nonreactive results in this assay for individualswith prior exposure to HIV-1 and/or HIV-2 may be due toantigen and antibody levels that are below the limit ofdetection of this assay.The [employer] HIV Ag/Ab Combo assay result andsupplemental assay results should be interpreted inconjunction with the patient's clinical presentation,history and other laboratory results. If the results areinconsistent with clinical evidence, additional testing issuggested to confirm the result. Blood Venous blood specimen / Unknown 09/04/2023 8:10 AM EST 09/04/2023 11:19 AM EST Elana Mcgowan MD LAB BLOOD ORDERAB LES Final Result [facility] [address] [place] [phone] * Hm Colonoscopy (12/06/2017 8:04 AM EDT) Historical Provider HEALTH MAINTENANCE Final Result from Last 3 Months or Most Recently Relevant to Health Maintenance Insurance [facility] (MEDICAID) Care Teams Detective Sergeant Relationship Specialty Start Date End Date Elana Rdz MD [address] [place] [phone] PCP - General Internal Medicine 05/24/23
== END 2024-11-10 15:02 | disposition home or self-care (01) ==
LOC: HO.US 15:01
PROVIDERS: PCP Student in an Organized Health Care Education/Training Program; Visit Provider Nurse Practitioner Family
DX: N20.0 Calculus of kidney (principal)
CPT/HCPCS: 76775

== ENCOUNTER → 2024-11-10 15:03 | Outpatient (BNV) | payer OTHER, SELFPAY | PROVIDERS: PCP Student in an Organized Health Care Education/Training Program; Visit Provider Radiology Diagnostic Radiology | DX: N20.0 Calculus of kidney (principal) | CPT/HCPCS: 76775 ==

== ENCOUNTER 2024-12-09 12:04 | Outpatient (REF) | payer OTHER, SELFPAY ==
--- NOTE | ~2024-12-09 | XR_ITS ---
EXAMINATION: XR CHEST CLINICAL INFORMATION: pt with ongoing cough and wheezing COMPARISON: 11/21/2018. TECHNIQUE: 2 views of the chest were obtained. FINDINGS: The cardiac, hilar, and mediastinal contours are normal. The lungs are clear bilaterally. There is no pneumothorax or pleural effusion. There is no focal osseous or soft tissue abnormality. XR/XR chest 2V IMPRESSION: No active pulmonary disease. Electronically signed by: Sascha Davis MD 12/09/2024 12:46 PM EDT
--- OUTSIDE RECORDS SUMMARY | 2024-12-09 14:25 | XMS_ITS | Encounter Summary ---
Author Organization [employer] Address [address] [place] [address] Care Team Providers Care Patient Relations Liaison Name Role Phone Elana Rdz MD Primary Care Pro vider Encounter Details Date Type Department Care Team (Latest Contact Info) Description 12/09/2024 Travel Social History Tobacco Use Types Packs/Day [...] Recorded Patient Health Questionnaire-2 Score 0 08/29/2023 Internet Access Answer Date Recorded Internet Access Q1 Yes 12/01/2024 Internet Access Q2 Not on file 12/01/2024 Comments No Sex and Gender Information Value Date Recorded Sex Assigned at Female 07/10/2022 10:15 AM EDT Legal Sex Female 10:15 AM EDT Gender Identity Female 07/10/2022 10:15 AM EDT Sexual Orientation Straight 07/10/2022 10 :15 AM EDT documented as of this encounter Plan of Treatment Upcoming Encounters Date Type Department Care Team (Late st Contact Info) Description 03/04/2025 3:00 PM EDT Office Visit [facility] [address] [place] [phone] Elana Rdz MD [address] [place] [phone] documented as of this encounter Visit Diagnoses Not on filedocumented in this encounter Additional Health Concerns Assessment Noted Time PHQ-9 Depression Total Score: 0 08/29/20 2:18 PM EST documented as of this encounter Care Teams Patient Relations Liaison Relationship Specialty Start Date End Date Elana Rdz MD [address] [place] [address] [phone] PCP - General Internal Medicine 05/24/23 documented as of this encounter
--- OUTSIDE RECORDS SUMMARY | 2024-12-09 14:25 | XMS_ITS | Encounter Summary ---
Author Organization [facility] [facility] Address [address] [place] [address] [address] [address] Care Team Providers Care Kiln Furniture Caster Name Role Phone Mayda Valerio [facility] Primary Care Provider [phone] Elana Rdz MD Primary Care Pro vider Encounter Details Date Type Department Care Team (Latest Contact Info) Description 07/27/2021 Abstract [facility] Dental, Provider, DDS Social History Tobacco [...] Description 03/04/2025 3:00 PM EDT Office Visit [facility] [address] [place] [phone] Elana Rdz MD [address] [place] [address] documented as of this encounter Visit Diagnoses Not on filedocumented in this encounter Care Teams Kiln Furniture Caster Relationship Specialty Start Date End Date Mayda Valerio FNP [address] [place] [address] PCP - General Family Medicine 05/08/22 05/23/23 Elana Rdz MD [address] [place] [phone] PCP - General Internal Medicine 05/24/23 documented as of this encounter
--- OUTSIDE RECORDS SUMMARY | 2024-12-09 14:25 | XMS_ITS | Encounter Summary ---
Author Organization [employer] Address [address] [place] [address] 7 [place] [address] Care Team Providers Care Supervisor Research Kennel Name Role Phone Elana Rdz MD Primary Care Pro vider Reason for Visit * Reason Onset Date Comments pre-op 07/17/2023 Encounter Details Date Type Department Care Team ([facility] st Contact Info) Description 07/17/2023 Telephone [facility] [address] [place], [place] [phone] Elana Rdz MD [address] [place] [address] pre-op Social History Tobacco Use Types Packs/Day [...] - 07/17/2023 4:05 PM EST Tc from [facility] [place] requesting a pre-op Location: [facility], [address] [place] [address] ext [phone] Procedure: vitrectomy of left eye Date of Procedure: 08/30 Lab: discretion of PCP EKG: yes Anesthesia: will get back with INFO Name of surgeon: Dr. Gregorio Black documented in this encounter Plan of Treatment Upcoming Encounters Date Type Department Care Team ([facility] st Contact Info) Description 03/04/2025 3:00 PM EDT Office Visit [facility] [address] [place] [phone] Elana Rdz MD [address] [place] [phone] documented as of this encounter Visit Diagnoses Not on filedocumented in this encounter Additional Health Concerns Assessment Noted Time PHQ-9 Depression Total Score: 0 12/09/19 23 9:56 AM EDT documented as of this encounter Care Teams Supervisor Research Kennel Relationship Specialty Start Date End Date Elana Rdz MD [address] [place] [phone] PCP - General Internal Medicine 05/24/23 documented as of this encounter
--- OUTSIDE RECORDS SUMMARY | 2024-12-09 14:25 | XMS_ITS | Encounter Summary ---
Author Organization [employer] Address [address] [place] [address] 7 [place] [address] Care Team Providers Care Resident Engineer Name Role Phone Elana Rdz MD Primary Care Pro vider Reason for Referral * Neurology (Routine) - Authorized Specialty Diagnoses / Procedures Referred By Conttessie t Referred To Contact Diagnoses Numbness Procedures EMG Elana Rdz MD [address] [place] [address] Phone: tel: fax: [address] Phone: tel: fax: Referral ID Status Reason Start Date Expiration Date V isits Requested Visits Authorized [id number] Authorized 12/09/2024 12/09/2025 1 1 Reason for Visit * Reason Comments Annual Exam Encounter Details Date Type Department Care Team (Late st Contact Info) Description 12/09/2024 10:45 AM EDT Office Visit [facility] [address] [place] [phone] Elana Rdz MD [address] [place], [place] [phone] Annual physical exam (Primary Dx); Mild intermittent asthma without complication; Mild intermittent asthma, unspecified whether complicated; Productive cough; Numbness Social History Tobacco Use Types Packs/Day Years [...] Sign Reading Time Taken Comments Blood Pressure 135/82 12/09/2024 10:34 AM EDT Pulse 87 12/09/2024 10:34 AM EDT Temperature 36.3 ??C (97.3 ??F) 12/09/2024 10:34 AM E DT Respiratory Rate 18 12/09/2024 10:34 AM EDT Oxygen Saturation 99% 12/09/2024 10:34 AM EDT Inhaled Oxygen Concentration - - Weight 68.8 kg (151 lb 9.6 oz) 12/09/2024 10:34 AM EDT Height 167.6 cm (5' 6 ) 12/09/2024 10:34 AM EDT Body Mass Index 24.47 12/09/2024 10:34 AM EDT documented in this encounter Plan of Treatment Upcoming Encounters Date Type Department Care Team (Late st Contact Info) Description 03/04/2025 3:00 PM EDT Office Visit [facility] [address] [place] [address] [phone] Elana Rdz MD [address] [place], [place] [phone] Scheduled Orders Name Type Priority Associated Diagnoses Orde r Schedule EMG Neurology Routine Numbness Expected: 12/09/2024 (Approximate), Expires: 12/09/2025 CBC Lab Routine Annual physical exam Expected: 12/09/2024 (Approximate), Expires: 12/09/2025 Chlamydia/N. Gonorrhoeae RNA, TMA, Urogenitial Microbiology Routine Annual physical exam Expected: 12/09/2024 (Approximate), Expires: 12/09/2025 Comprehensive Metabolic Panel Lab Routine Annual physical exam Expected: 12/09/2024 (Approximate), Expires: 12/09/2025 Hemoglobin A1c Lab Routine Annual physical exam Expected: 12/09/2024 (Approximate), Expires: 12/09/2025 Hepatitis C Antibody with Reflex to HCV, RNA, Quantitative, Real-Time PCR Lab Routine Annual physical exam Expected: 12/09/2024 (Approximate), Expires: 12/09/2025 HIV-1/2 Antigen and Antibodies, Fourth Generation, with Reflexes Lab Routine Annual physical exam Expected: 12/09/2024 (Approximate), Expires: 12/09/2025 Lipid Panel, Standard Lab Routine Annual physical exam Expected: 12/09/2024 (Approximate), Expires: 12/09/2025 Syphilis Screen Lab Routine Annual physical exam Expected: 12/09/2024 (Approximate), Expires: 12/09/2025 TSH with Reflex to Free T4 Lab Routine Annual physical exam Expected: 12/09/2024 (Approximate), Expires: 12/09/2025 Vitamin B12 (Cobalamin) and Folate Panel, Serum Lab Routine Annual physical exam Expected: 12/09/2024 (Approximate), Expires: 12/09/2025 documented as of this encounter Procedures Procedure Name Priority Date/Time Associated Diagnosis Comments XR CHEST 2 VIEWS Routine 12/09/2024 12:0 5 PM EDT Productive cough POCT INFLUENZA B (ID NOW RAPID MOLECULAR) Routine 12/09/2024 11:57 AM EDT Mild intermittent asthma without complication POCT INFLUENZA A (ID NOW RAPID MOLECULAR) Routine 12/09/2024 11:57 AM EDT Mild intermittent asthma without complication POCT COVID-19 AG [place] ID NOW Routine 12/09/2024 11:57 AM EDT Mild intermittent asthma without complication documented in this encounter Results * XR Chest 2 Views (12/09/2024 12:05 PM EDT) Anatomical Region Laterality Modality Chest Radiographic Renetta ging 12/09/2024 12:0 5 PM EDT Narrative 12/09/2024 12:49 PM EDT ?[facility] ?[address] ?[place] [address] ?XRay Report ? Signed ? Patient: Dwight,Erendira I ?MR#: [id number] ?? [id number] ? : 1960 ?Acct:[id number] ? Age/Sex: 64 / F ?ADM Date: 12/09/24 ? Loc: HO.HHCX ? Attending Dr: Elana Mcgowan MD ? Ordering Physician: Elana Rdz MD ?? Date of Service: 12/09/24 ?? Procedure(s): XR chest 2V ?? Accession Number(s): [id number] ? cc: Elana Rdz MD ? EXAMINATION: ?? XR CHEST ? CLINICAL INFORMATION: ?? pt with ongoing cough and wheezing ? COMPARISON: ?? 11/21/2018. ? TECHNIQUE: ?? 2 views of the chest were obtained. ? FINDINGS: ?? The cardiac, hilar, and mediastinal contours are normal. ? The lungs are clear bilaterally. There is no pneumothorax or pleural ?? effusion. ? There is no focal osseous or soft tissue abnormality. ? XR/XR chest 2V ?? IMPRESSION: ?? No active pulmonary disease. ? Electronically signed by: ??Sascha Davis MD ??12/09/2024 12:46 PM EDT RP ? Dictated By: ?Sascha Davis MD ? Signed By: ?<Electronically signed by Sascha Davis MD in OV> ?12/09/246 ? DD/ 1205 ? TD/TT: 12/09/24 1217 ? Prepress Manager: ? Procedure Note Baciliochinedu, Image - 12/09/[address] [address] XRay Report Signed Patient: Erendira Quintanilla IMR#: [id number] : 2Acct:[id number] Age/Sex: 64 / FADM Date: 12/09/24 Loc: HO.HHCX Attending Dr: Elana Mcgowan MD Ordering Physician: Elana Rdz MD Date of Service: 12/09/24 Procedure(s): XR chest 2V Accession Number(s): [id number] cc: Elana Rdz MD EXAMINATION: XR CHEST CLINICAL INFORMATION: pt with ongoing cough and wheezing COMPARISON: 11/21/2018. TECHNIQUE: 2 views of the chest were obtained. FINDINGS: The cardiac, hilar, and mediastinal contours are normal. The lungs are clear bilaterally. There is no pneumothorax or pleural effusion. There is no focal osseous or soft tissue abnormality. XR/XR chest 2V IMPRESSION: No active pulmonary disease. Electronically signed by: Sascha Davis MD 12/09/2024 12:46 PM EDT Dictated By: Sascha Davis MD Signed By: <Electronically signed by Sascha Davis MD in OV> 12/09/24 1246 DD/ 1205 TD/TT: 12/09/24 1217 Prepress Manager: us Elana Mcgowan MD IMG XR PROCEDURES Final Result * POCT Rapid Influenza B [place] ID NOW (12/09/2024 11:57 AM EDT) Influenza B Negative Negative, Indeterminate [facility] QC Media Lot # [id number] [facility] Lot# Expiration Date [facility] Swab 12/09/2024 11:5 7 AM EDT Elana Mcgowan MD POINT OF CARE SARAH T ENTER/EDIT ORDERABLES Final Result Performing Organization Address City/[facility]/ZIP Co de Phone Number [facility] [address] [place] [phone] * POCT Rapid Influenza A [place] ID NOW (12/09/2024 11:57 AM EDT) Influenza A Negative Negative, Indeterminate [facility] QC Media Lot # [id number] [facility] Lot# Expiration Date [facility] Swab 12/09/2024 11:5 7 AM EDT us Elana Mcgowan MD POINT OF CARE SARAH T ENTER/EDIT ORDERABLES Final Result Performing Organization Address City/[facility]/ZIP Co de Phone Number [facility] [address] [place] [phone] * POCT Rapid Covid-19 [place] ID NOW (12/09/2024 11:57 AM EDT) Coronavirus Antigen PCR Negative Negative, Indeterminate, None Detected, Invalid, Specimen unsatisfactory for evaluation, Weakly Positive [facility] QC Media Lot # [id number] [facility] Lot# Expiration Date [facility] Swab 12/09/2024 11:5 7 AM EDT Elana Mcgowan MD POINT OF CARE SARAH T ENTER/EDIT ORDERABLES Final Result [facility] [address] [place] [phone] documented in this encounter Visit Diagnoses Diagnosis Annual physical exam- Primary Routine general medical examination at a health care facility Mild intermittent asthma, unspecified whether complicated Productive cough Cough Numbness Disturbance of skin sensation documented in this encounter Additional Health Concerns Assessment Noted Time PHQ-9 Depression Total Score: 0 08/29/20 2:18 PM EST documented as of this encounter Care Teams Resident Engineer Relationship Specialty Start Date End Date Elana Rdz MD [address] [place] [phone] PCP - General Internal Medicine 05/24/23 documented as of this encounter
--- OUTSIDE RECORDS SUMMARY | 2024-12-09 14:25 | XMS_ITS | Encounter Summary ---
Author Organization [employer] Address [address] [place] [address] 7 [place] [address] Care Team Providers Care Telephone Engineer Name Role Phone Mayda Valerio [facility] Primary Care Provider Elana Rdz MD Primary Care Pro vider Encounter Details Date Type Department Care Team (Latest Contact Info) Description 04/08/2019 Abstract [facility] CONVERSIONS Dental, Provider, DDS Social History Tobacco [...] Description 03/04/2025 3:00 PM EDT Office Visit [facility] MEDICINE [address] [place], [place] [phone] Elana Rdz MD [address] [place] [address] documented as of this encounter Visit Diagnoses Not on filedocumented in this encounter Care Teams Telephone Engineer Relationship Specialty Start Date End Date Mayda Valerio FNP [address] [place] [address] PCP - General Family Medicine 05/08/22 05/23/23 Elana Rdz MD [address] [place] [phone] PCP - General Internal Medicine 05/24/23 documented as of this encounter
--- OUTSIDE RECORDS SUMMARY | 2024-12-09 14:25 | XMS_ITS | Encounter Summary ---
Author Organization [employer] Address [address] [place] [address] 7 [place] [address] Care Team Providers Care Fork Operator Name Role Phone Elana Rdz MD Primary Care Pro vider Reason for Visit * Reason Onset Date Comments Referral 06/29/2023 Encounter Details Date Type Department Care Team ([facility] st Contact Info) Description 06/29/2023 Telephone [facility] [address] [place], [place] [phone] Elana Rdz MD [address] [place] [address] Referral Social History Tobacco Use Types Packs/Day [...] calling in regards to physical therapy in [place] requesting to be transferred to [facility] to home in [place]. Patient speaks arabic Please contact [phone] documented in this encounter Plan of Treatment Upcoming Encounters Date Type Department Care Team (Late st Contact Info) Description 03/04/2025 3:00 PM EDT Office Visit [facility] [address] [place] [phone] Elana Rdz MD [address] [place] [phone] documented as of this encounter Visit Diagnoses Not on filedocumented in this encounter Additional Health Concerns Assessment Noted Time PHQ-9 Depression Total Score: 0 12/09/19 9:56 AM EDT documented as of this encounter Care Teams Fork Operator Relationship Specialty Start Date End Date Elana Rdz MD [address] [place] [phone] PCP - General Internal Medicine 05/24/23 documented as of this encounter
--- OUTSIDE RECORDS SUMMARY | 2024-12-09 14:25 | XMS_ITS | Encounter Summary ---
Author Organization [employer] Address [address] [place] [address] Care Team Providers Care Tube Drawing Supervisor Name Role Phone Elana Rdz MD Primary Care Pro vider Encounter Details Date Type Department Care Team (Late st Contact Info) Description 12/19/2023 Orders Only [facility] [address] [place] [address] ProviderIsael MD Social History Tobacco Use Types [...] Description 03/04/2025 3:00 PM EDT Office Visit [facility] [address] [place] [phone] Elana Rdz MD [address] [place] [phone] documented as of this encounter Procedures Procedure [...] documented as of this encounter Care Teams Tube Drawing Supervisor Relationship Specialty Start Date End Date Elana Rdz MD [address] [place] [phone] PCP - General Internal Medicine 05/24/23 documented as of this encounter
--- OUTSIDE RECORDS SUMMARY | 2024-12-09 14:25 | XMS_ITS | Encounter Summary ---
Author Organization [employer] Address [address] [place] [address] 7 [place] [address] Care Team Providers Care Bilingual Receptionist Name Role Phone Elana Rdz MD Primary Care Pro vider Reason for Visit * Reason Onset Date Comments Appointment 12/09/2024 Referral 12/09/2024 Encounter Details Date Type Department Care Team ([facility] st Contact Info) Description 12/09/[address] [facility] [address] [place], [place] [phone] Elana Rzd MD [address] [place] [address] Appointment; Referral Social History Tobacco Use Types Packs/Day [...] your housing situation today? I have amarjit katheryn 06/29/[address] you li [...] encounter Miscellaneous Notes * Telephone Encounter - Alondra Del Valle [place] - 12/09/2024 11:51 AM EDT Images from the original note were not included. At appointment with Perinatal Educator informed Patient of Podiatry referral information bellow. Podiatry Faxed referral to [facility] [address] [facility] [address], [place] [address] P: [phone] F: [phone] 2. Faxed Releese form to [facility] for EGD notes with biopsy if any. 3. Called [facility] centralize scheduling to confirm if Patient had or has Mammogram Screening appointment. They stated she has an Upcoming appointment on 12/16/24 at 3:15 PM. Perinatal Educator wrote it down with Podiatry Info for Patient. 4. Gave Chest xray documented in this encounter Plan of Treatment Upcoming Encounters Date Type Department Care Team ([facility] st Contact Info) Description 03/04/2025 3:00 PM EDT Office Visit [facility] [address] [place] [address] [phone] Elana Rdz MD [address] [place] [address] documented as of this encounter Visit Diagnoses Not on filedocumented in this encounter Additional Health Concerns Assessment Noted Time PHQ-9 Depression Total Score: 0 08/29/20 23 2:18 PM EST documented as of this encounter Care Teams Bilingual Receptionist Relationship Specialty Start Date End Date Elana Rdz MD [address] [place] [address] PCP - General Internal Medicine 05/24/23 documented as of this encounter
--- OUTSIDE RECORDS SUMMARY | 2024-12-09 14:25 | XMS_ITS | Clinical Summary ---
Author Organization [employer] Address [address] [place] [address] 7[address] [place] [address] Care Team Providers Care Manufacturing Development Engineer Name Role Phone Elana Rdz MD Primary Care Pro vider Allergies Active Allergy Reactions Criticality Noted Date Comments Gentamicin 10/28/2010 Other reaction(s): unspecified Sulfamethoxazole 10/28/2010 Other reaction(s): unspecified Sulfamethoxazole-Trimethoprim 2022 Trimethoprim 10/28/2010 Other reaction(s): unspecified Medications Acetaminophen Extra Strength 500 MG tablet Take 500 mg by mouth every 6 (six) hours if needed. 022 Active brimonidine (AlphaGAN P) 0.2 % ophthalmic solution INSTILL 1 DROP IN THE LEFT EYE TWICE DAILY 023 Active dorzolamide (Trusopt) 2 % ophthalmic solution INSTILL 1 DROP INTO LEFT EYE TWICE A DAY 023 Active ketorolac (Acular) 0.5 % ophthalmic solution APPLY 1 DROP IN AFFECTED EYE(S) THREE TIMES DAILY DIRECTED. START 2 DAYS BEFORE SURGERY 023 Active ondansetron (Zofran) 4 MG tablet Take 1 tablet (4 mg) by mouth if needed each day for nausea or vomiting. 30 tablet 024 Active meclizine (Antivert) 25 MG tablet TAKE 1 TABLET BY MOUTH THREE TIMES DAILY IN THE MORNING, AT NOON, AND AT BEDTIME NEEDED FOR DIZZINESS OR FOR NAUSEA 60 tablet 024 Active hydrOXYzine pamoate (Vistaril) 25 MG capsule TAKE 1 CAPSULE BY MOUTH FOUR TIMES DAILY NEEDED FOR ANXIETY 60 capsule 3 Active omeprazole (PriLOSEC) [address] capsuleIndicati ons:Dyspepsia TAKE 1 CAPSULE BY MOUTH EVERY DAY BEFORE BREAKFAST 90 capsule Active dorzolamide-rena olol (Cosopt) 2-0.5 % ophthalmic solution INSTILL 1 DROP IN THE LEFT EYE TWICE DAILY Active ofloxacin (Ocuflox) 0.3 % ophthalmic solution PLACE 1 DROP IN THE LEFT EYE FOUR TIMES DAILY Active prednisoLONE acetate (Pred-Forte) 1 % ophthalmic suspension INSTILL 1 DROP IN THE LEFT EYE EVERY 2 HOURS WHILE AWAKE Active albuterol (2.5 MG/3ML) 0.083% nebulizer solutionIndicat ions:Mild intermittent asthma, unspecified whether complicated,Pro ductive cough Take 3 mL (2.5 mg) by nebulization every 6 (six) hours if needed for wheezing. 90 mL 6 Active omega-3 (Fish Oil) 1000 MG capsule Take 1 capsule (1,000 mg) by mouth Once per day. 30 capsule 2 Active predniSONE (Deltasone) 20 MG tabletIndicatio ns:Productive cough 2 tabs po daily for 5 days 10 tablet Active gabapentin (Neurontin) 100 MG capsuleIndicati ons:Numbness 1 capsule at bedtime 30 capsule 1 025 Active pyridoxine (Vitamin B-6) 50 MG tablet Take 1 tablet by mouth in the morning. 022 2024 Discontinued(O ther) omega-3 (Fish Oil) 1000 MG capsule TAKE 1 CAPSULE BY MOUTH ONCE DAILY IN THE MORNING 30 capsule 2 024 2024 Discontinued(R eorder (will not trigger notification to Pharmacy)) hydrOXYzine HCl (Atarax) 25 MG tablet Take 25 mg by mouth if needed each day for anxiety. 2024 Discontinued(O ther) albuterol (2.5 MG/3ML) 0.083% nebulizer solutionIndicat ions:Mild intermittent asthma, unspecified whether complicated INHALE 1 AMPULE USING A NEBULIZER THREE TIMES DAILY 90 mL 6 024 2024 Discontinued(R eorder (will not trigger notification to Pharmacy)) Active Problems Problem Noted Date Diagnosed Date [...] Encounters Date Type Department Care Team Description 12/09/2024 10:45 AM EDT Office Visit [facility] [address] [place] [address] Elana Rdz MD Annual physical exam (Primary Dx); Mild intermittent asthma without complication; Mild intermittent asthma, unspecified whether complicated; Productive cough; Numbness 12/09/2024 Telephone [facility] [address] [place] [address] Elana Rdz MD Appointment; Referral 12/09/2024 Travel 12/01/[address] [address] Elana dRz MD Chart prep 12/01/2024 Patient Outreach [address] [address] Elana Rdz MD Pre-visit Planning (SDOH Screening negative and Tobacco screening negative) 11/10/2024 Orders Only [facility] External Provider, [facility] 11/04/2024 3:30 PM EST Procedure Visit [address] [address] Harish Valenzuela CNM Visit for pelvic exam (Primary Dx); Breast cancer screening by mammogram; Fibroid 11/04/2024 Travel 11/03/[address] [address] Elana Rdz MD change referral 09/15/2024 2:30 PM EST Office Visit [facility] [address] [place], [place] [phone] Reinaldo Albrecht, DMD Dental abscess (Primary Dx) from Last 3 Months Immunizations Name Administration Dates Next Due Hep B, adult 07/17/1996,02/21/1996,01/16/1996 INFLUENZA INJECTABLE QUADRIV ALANT CCIIV4 MDCK Multi-dose vial 06/21/2019 Influenza Injectable Quadriv alant Preservative Free IIV4 MDCK 06/08/2018,06/30/2017 Influenza Whole 05/24/2009 Influenza injectable quadriv alent preservative free 06/25/2022,06/26/2021,06/10/2020,05/08,06/02/2016 Influenza, IIV3, injectable 06/02/2010 Influenza, Injectable, MDCK, preservative free 06/15/2024 Influenza, Split (incl. bernardo fied surface antigen) 06/24/2013 MMR 02/11/2009 Novel Axeucvhmt-[id number], all formulations 10/04/2009 Pneumococcal Polysaccharide PPSV23 07/16/2008 [...] Mass Index 24.47 12/09/2024 10:34 AM EDT Plan of Treatment Upcoming Encounters Date Type Department Care Team (Late st Contact Info) Description 03/04/2025 3:00 PM EDT Office Visit [facility] MEDICINE [address] [place] [phone] Elana Rdz MD [address] [place] [address] Health Maintenance Due Date Last Done Comments [...] 01/18/2021, 12/21/2020 Depression Screening 08/29/2024 08/29/2023, 08/29/20 Dental Oral Exam 02/13/2025 08/14/2024 Dental X-Ray: Bitewings 08/15/2025 08/14/20, 11/22/2023, 07/25/2023, Additional history exists Mammogram 11/23/2025 11/24/2023, 10/29/2021 SDOH Screening 12/01/2025 12/01/2024 Tobacco Screening 12/09/2025 12/09/2024 Colonoscopy 12/07/2027 12/06/2017, 02/20/2013 Colorectal Cancer Screening [...] AM EDT Mild intermittent asthma without complication US RENAL BI Routine 11/11/2024 3:16 PM EST CASE PRESENTATION, DETAILED AND EXTENSIVE TREATMENT PLANNING Routine 09/15/2024 2:30 PM EST 4 RETREATMENT OF PREVIOUS ROOT CANAL THERAPY - PREMOLAR Routine 09/15/2024 2:30 PM EST BITEWINGS - 4 RADIOGRAPHIC IMAGES [...] Relevant to Health Maintenance Results * XR Chest 2 Views (12/09/2024 12:05 PM EDT) Anatomical Region Laterality Modality Chest Radiographic Renetta ging 12/09/2024 12:0 5 PM EDT Narrative 12/09/2024 12:49 PM EDT ?[facility] ?[address] ?[place] [address] ?XRay Report ? Signed ? Patient: Dwight,Erendira I ?MR#: [id number] ?? [id number] ? : 1960 ?Acct:[id number] ? Age/Sex: 64 / F ?ADM Date: 12/09/24 ? Loc: HO.HHCX ? Attending Dr: Elana Mcgowan MD ? Ordering Physician: Elana Rdz MD ?? Date of Service: 12/09/24 ?? Procedure(s): XR chest 2V ?? Accession Number(s): [id number] ? cc: Elana Rdz MD ? EXAMINATION: [...] signed by Sascha Davis MD in OV> ?12/09/24 1246 ? DD/ 1205 ? TD/TT: 12/09/24 1217 ? Purchase Analyst: ? Procedure Note Manny Romero - 12/09/[address] [address] XRay Report Signed Patient: Erendira Quintanilla IMR#: [id number] : 2Acct:[id number] Age/Sex: 64 / FADM Date: 12/09/24 Loc: HO.HHCX Attending Dr: Elana Mcgowan MD Ordering Physician: Elana Rdz MD Date of Service: 12/09/24 Procedure(s): XR chest 2V Accession Number(s): [id number] cc: Elana Rdz MD EXAMINATION: XR CHEST [...] 12/09/24 1246 DD/ 1205 TD/TT: 12/09/24 1217 Purchase Analyst: us Elana Mcgowan MD IMG XR PROCEDURES Final Result * POCT Rapid Influenza B [place] ID NOW (12/09/2024 11:57 AM EDT) Influenza B Negative Negative, Indeterminate [facility] QC Media Lot # [id number] [facility] Lot# Expiration Date [facility] Swab 12/09/2024 11:5 7 AM EDT Elana Mcgowan MD POINT OF CARE SARAH T ENTER/EDIT ORDERABLES Final Result [facility] [address] [place] [phone] * POCT Rapid Influenza A [place] ID NOW (12/09/2024 11:57 AM EDT) Influenza A Negative Negative, Indeterminate [facility] QC Media Lot # [id number] [facility] Lot# Expiration Date [facility] Swab 12/09/2024 11:5 7 AM EDT us Elana Mcgowan MD POINT OF CARE SARAH T ENTER/EDIT ORDERABLES Final Result Performing Organization Address [facility] Co de Phone Number [facility] [address] [place] [address] [phone] * POCT Rapid Covid-19 [place] ID NOW (12/09/2024 11:57 AM EDT) Coronavirus Antigen PCR Negative Negative, Indeterminate, None Detected, Invalid, Specimen unsatisfactory for evaluation, Weakly Positive [facility] QC Media Lot # [id number] [facility] Lot# Expiration Date [id number] [facility] Swab 12/09/2024 11:5 7 AM EDT us Elana Mcgowan MD POINT OF CARE SARAH T ENTER/EDIT ORDERABLES Final Result Performing Organization Address [facility] Co de Phone Number [facility] [address] [place] [phone] [phone] * US RENAL BI (11/11/2024 3:16 PM EST) Anatomical Region Laterality Modality Abdomen Ultrasound 11/11/2024 3:16 PM EST Narrative 11/11/2024 3:19 PM EST ? [facility] ?[address] ?[place] [address] ? Ultrasound Report ? Signed ? Patient: Dwight,Erendira I ?MR#: [id number] ?? [id number] ? : 1960 ?Acct:[id number] ? Age/Sex: 64 / F ?ADM Date: 03/03/25 ? Loc: HO.US ? Attending Dr: Megan Solorio PLANT HEALTH CARE TECHNICIAN-BC ? Ordering Physician: Megan Solorio PLANT HE[employer] CARE TECHNICIAN-BC ?? Date of Service: 11/10/24 ?? Procedure(s): US renal BI ?? Accession Number(s): [id number] ? cc: Megan SolorioP-; Elana Rdz MD ? CLINICAL HISTORY: N20.0 - Calculus of kidney ? US Renal ? Comparison: None ? Findings: ?? Right kidney normal size and echotexture, 11.6 cm length. ?? Left kidney normal size and echotexture, 10.8 cm length. ?? There are 2 small calculi within the lower pole of the right kidney, each ?? measuring 3 mm in greatest dimension. ?? There are small parenchymal or vascular calcifications within the left ?? kidney. ?? No collecting system dilatation of either kidney. Normal color Doppler. ? IMPRESSION: ?? 1. Two small nonobstructive calculi within the right kidney. ? This document has been electronically signed by: Krissy Kohli MD on ?? 11/11/2024 15:16:34 ? Dictated By: ?Krissy Kohli MD ? Signed By: ?<Electronically signed by Krissy Kohli MD in OV> ? 11/11/24 1518 ? DD/ 15 ? TD/TT: 11/11/241515 ? Purchase Analyst: ? Procedure Note Bacilioanupammargegilma, Manny - 11/11/2024 [place] [address] Ultrasound Report Signed Patient: Erendira Quintanilla [facility]#: [id number] : 1960cct:[id number] Age/Sex: 64 / FADM Date: 11/10/24 Loc: HO.US Attending Dr: Megan FLORES Ordering Physician: Megan Solorio Date of Service: 11/10/24 Procedure(s): US renal BI Accession Number(s): [id number] cc: Megan Solorio; Elana Rdz MD CLINICAL HISTORY: N20.0 - Calculus of kidney US Renal Comparison: None Findings: Right kidney normal size and echotexture, 11.6 cm length. Left kidney normal size and echotexture, 10.8 cm length. There are 2 small calculi within the lower pole of the right kidney, each measuring 3 mm in greatest dimension. There are small parenchymal or vascular calcifications within the left kidney. No collecting system dilatation of either kidney. Normal color Doppler. IMPRESSION: 1. Two small nonobstructive calculi within the right kidney. This document has been electronically signed by: Krissy Kohli MD on 11/11/2024 15:16:34 Dictated By: Krissy Kohli MD Signed By: <Electronically signed by Krissy Kohli MD in OV> 11/11/24 1518 DD/ 1516 TD/TT: 11/11/24 151 Purchase Analyst: [facility] External Provider IMG US PROCEDURES Final Result * BI Mammogram Screening Tomosynthesis Bilateral (11/24/2023 9:55 AM EDT) Anatomical Region Laterality Modality Breast Bilateral Mammography 11/24/2023 9:55 AM EDT Narrative 11/25/2023 12:51 PM EDT ? [facility] [place] ? [address] ?[place] [address] ? Mammography Report ? Signed ? Patient: Erendira Quintanilla I ?MR#: [id number] ?? [id number] ? : 1960 ?Acct:[id number] ? Age/Sex: 63 / F ?ADM Date: 11/24/23 ? Loc: HO.MAMMO ? Attending Dr: Elana Mcgowan MD ? Ordering Physician: Elana Rdz MD ?Re ?? sults: 1Negative ? Date of Service: 11/24/23 ?Follow Up: 1 Year From Orig ?? inal Mammogram ? Procedure(s): MM tomosynthesis screening BI ?? Accession Number(s): [id number] ? cc: Elana Rdz MD ? EXAMINATION: [...] by Parvin Garcia MD in OV> ? 11/25/23 1247 ? DD/ 0955 ? TD/TT: ? Purchase Analyst: ? Procedure Note Nick, Manny - 11/25/2023 [facility] [address] [place] [address] [place] [address] Mammography Report Signed Patient: Erendira Quintanilla [facility]#: [id number] : 2Acct:[id number] Age/Sex: 63 / FADM Date: 11/24/23 Loc: [facility] Attending Dr: Elana Mcgowan MD Ordering Physician: Elana Rdz sults: 1Negative Date of Service: 11/24/23Follow Up: 1 Year From Orig inal Mammogram Procedure(s): MM tomosynthesis screening BI Accession Number(s): [id number] cc: Elana Rdz MD EXAMINATION: MM SCREENING [...] in OV> 11/25/23 1247 DD/ 0955 TD/TT: Purchase Analyst: Elana Mcgowan MD [facility] BI PROCEDURES Edited Result - Final * HPV mRNA E6/E7 w/Reflex to HPV Genotypes 16, 18/45 (10/22/2023 11:11 AM EST) HPV nRNA E6/E7 Not Detected Not Detected [facility] Comment:Methodology: Transcr iption-Mediated AmplificationThis assay detects E6/E7 viral messenger RNA (mRNA) from 14high-risk HPV types (16,18,31,33,35,39,45,51,52,56,58,59,66,68).Cervical sources are required for HPV testing.If a vaginal source from a patient who has had atotal hysterectomy with removal of cervix wassubmitted, please contact the testing laboratoryfor alternative testing options.For additional information, please refer [email or web address].[employer]/faq/TJU763y2(This link if provided for information/educational purposes only.)THIS TEST WAS PERFORMED AT:[facility] [place] [phone] COYLE MD HPV mRNA E6/E7 TNP [facility] HPV 16 RNA TNP [facility] HPV 18/45 RNA TNP [facility] 10/22/2023 11:1 1 AM EST 10/23/2023 8:00 AM EST Harish Valenzuela CNM LAB CYTOLOGY ORDERABLES F inal Result [facility] [address] [place] [address] [phone] * Pap Smear (10/22/2023 11:11 AM EST) Swab Cervix uteri structure / Unknown 10/22/2023 11:11 AM EST 10/23/2023 8:00 AM EST Narrative [facility] - 11/06/2023 1:21 PM EST ----- ------- Name: Erendira Quintanilla I ?Age/Sex: 63/F ? : 1960 Unit#: [id number] ?? Attend Dr: HARISH VALENZUELA CNM ?Re10/22/23 ?Status: DEP REF ? Location: HO.LNP ?Disch: ? ----- ------- SPEC : [id number] ? RECD: 10/23/23 ? STATUS: ??SOUT ? REQ NUM: [id number] ? MATTHEW: 10/22/23-1110 ? SUBM DR: HARISH VALENZUELA CNM ? ENTERED: ??10/23/23 ?SP TYPE: Pap Smr ?OTHR : ? [...] 66, 68) ?? HPV testing performed by [facility], [place], [place]. ??See reference laboratory ?? portion of the EMR for entire report. ?Clinical Information LMP: Postmenopausal Previous PAP test: Unknown date/findings ? Material Received ?? ThinPrep-Cervical ----- ------- Signed (signature on file) GALILEO Hutchins (ASCP) 11/06/23 1321 ? ----- ------- ? END OF REPORT ? us Harish Valenzuela [facility] CYTOLOGY ORDERABLES F inal Result [facility] [address] [place] [phone] * Hepatitis C Antibody with Reflex to HCV, RNA, Quantitative, Real-Time PCR (09/04/2023 8:10 AM EST) Hepatitis C Antibody Nonreactive Nonreactive [facility] Comment:Antibodies to HCV no t detected; does not exclude early acuteHCV infection. Blood Venous blood specimen / Unknown 09/04/2023 8:10 AM EST 09/04/2023 11:19 AM EST us Elana Mcgowan MD LAB BLOOD ORDERAB LES Final Result Performing Organization Address [facility]/ZIP Co de Phone Number [facility] [address] [place] [phone] * HIV-1/2 Antigen and Antibodies, Fourth Generation, with Reflexes (09/04/2023 8:10 AM EST) HIV AB/AG Nonreactive Nonreactive [facility] Comment:HIV-1 p24 Ag and/or HIV-1/HIV-2 Ab not detected.A test result that is nonreactive does not exclude thepossibility of exposure to or infection with HIV-1 and/orHIV-2. Nonreactive results in this assay for individualswith prior exposure to HIV-1 and/or HIV-2 may be due toantigen and antibody levels that are below the limit ofdetection of this assay.The [employer] HIV Ag/Ab Combo assay result andsupplemental assay results should be interpreted inconjunction with the patient's clinical presentation,history and other laboratory results. If the results areinconsistent with clinical evidence, additional testing issuggested to confirm the result. Blood Venous blood specimen / Unknown 09/04/2023 8:10 AM EST 09/04/2023 11:19 AM EST Elana Mcgowan MD LAB BLOOD ORDERAB LES Final Result Performing Organization Address [facility]/ZIP Co de Phone Number [facility] [address] [place] [address] [phone] * Hm Colonoscopy (12/06/2017 8:04 AM EDT) us Historical Provider HEALTH MAINTENANCE Final Result from Last 3 Months or Most Recently Relevant to Health Maintenance Insurance HS PARTIAL [facility] - HSN PARTIAL (MEDICAID) Care Teams Manufacturing Development Engineer Relationship Specialty Start Date End Date Elana Rdz MD [address] [place] [phone] PCP - General Internal Medicine 05/24/23
--- OUTSIDE RECORDS SUMMARY | 2024-12-09 14:25 | XMS_ITS | Encounter Summary ---
Author Organization [employer] Address [address] [place] [address] [address] [place] [address] Care Team Providers Care Low Altitude Air Defense Gunner Name Role Phone Elana Rdz MD Primary Care Pro vider Reason for Visit * Reason Onset Date Comments change referral 11/03/2024 Encounter Details Date Type Department Care Team ([facility] st Contact Info) Description 11/03/2024 Telephone [facility] MED[facility] [address] [place], [place] [phone] Elana Rdz MD [address] [place] [address] change referral Social History Tobacco Use Types [...] EST Tc from pt stating called to bowstring maker to make an appointment but it is completely full, pt is requesting to be referred to another facility that is near [place], [place]. Any questions contact pt [phone] Icelandic documented in this encounter Plan of Treatment Upcoming Encounters Date Type Department Care Team (Late st Contact Info) Description 03/04/2025 3:00 PM EDT Office Visit [facility] MED[facility] [address] [place] [phone] Elana Rdz MD [address] [place] [phone] documented as of this encounter Visit Diagnoses Not on filedocumented in this encounter Additional Health Concerns Assessment Noted Time PHQ-9 Depression Total Score: 0 08/29/20 2:18 PM EST documented as of this encounter Care Teams Low Altitude Air Defense Gunner Relationship Specialty Start Date End Date Elana Rdz MD [address] [place] [phone] PCP - General Internal Medicine 05/24/23 documented as of this encounter
--- OUTSIDE RECORDS SUMMARY | 2024-12-09 14:25 | XMS_ITS | Clinical Summary ---
Author Organization [facility] ity Address [address] [place] [address] Care Team Providers Care Customer Consulting Manager Name Role Phone Unavailable Primary Care Provider [...] Breast Cancer Screening 06/03/2020 06/03/2018 COVID-19 Vaccine ( - 2023-2 5 season) 2024 Influenza Vaccine (Season Ended) 2025 RSV Immunization Patients 60 + Years Old [...] Procedure Name Priority Date/Time Associated Diagnosis Comments [facility] SCREENING DIGITAL Routine 06/03/2018 8:36 AM EDT Encounter for screening mammogram for malignant neoplasm of breast from Last 3 Months or Most Recently Relevant to Health Maintenance Results * KAY SCREENING DIGITAL (06/03/2018 8:36 AM EDT) Anatomical Region Laterality Modality Mammography 05/29/2018 2:09 PM EDT Narrative 06/03/2018 8:36 AM EDT [facility] Diagnostic Imaging Department [address] [place] [address] Patient: ??LILIANAERENDIRA DELUNA I ?/Age/Sex: 1960 - 58 - F Unit#: ??[id number] ? Location/Status: ??SPDIMAM/REG CLI ? Mnemonic/Ordering Site: ??DIGSC/SPMAM Ordering Physician: ??DENZEL SAUCEDO PAD MACHINE FEEDER Kay Screening Digital - 06/01/18 - 1038 EXAM: [facility] Screening Digital EXAM DATE AND TIME: 06/01/2018 10:38 AM HISTORY: ??Screening. Three maternal aunts had breast carcinoma. COMPARISON: ??05/26/17, 05/20/16, 04/10/15, 04/04/14, 02/15/13 TECHNIQUE: CC and MLO views of both breasts were obtained using full field digital mammography. Bilateral digital breast tomosynthesis was performed in the MLO projection. Computer aided detection with the [employer] 7.2-H was employed. TISSUE DENSITY: c. The [...] Routine screening mammogram BILATERAL in 1 year. [address], [address] 3342F, 7025F Dictating Physician: ??RAMONA CAMEJO MD Electronically Signed by: ??RAMONA CAMEJO MD Dic Date/Time: ??06/03/18 0835 Sign date/Time: ??06/03/18 0836 Procedure Note Ramona Camejo MD - 08/29/2022 [facility] Diagnostic Imaging Department [address] [place] [address] Patient: ERENDIRA QUINTANILLA Ihsan /Age/Sex: 1960 - 58 - F Unit#: [id number] Location/Status: SPDIMAM/REG CLI Mnemonic/Ordering Site: [facility] Ordering Physician: DENZEL SAUCEDO PAD MACHINE FEEDER [facility] Screening Digital - 06/01/18 - 1038 EXAM: [facility] Screening Digital EXAM DATE AND TIME: 06/01/2018 10:38 AM HISTORY: Screening. Three maternal aunts had breast carcinoma. COMPARISON: 05/26/17, 05/20/16, 04/10/15, 04/04/14, 02/15/13 TECHNIQUE: CC and MLO views of both breasts were obtained using fullfield digital mammography. Bilateral digital breast tomosynthesis was performedin the MLO projection. Computer aided detection with the [employer] employed. TISSUE DENSITY: c. The breasts are [...] Routine screening mammogram BILATERAL in 1 year. [address], [address]33 3342F, 7025F Dictating Physician: RAMONA CAMEJO MD Electronically Signed by: RAMONA CAMEJO MD Dic Date/Time: 06/03/18834 Sign date/Time: 06/03/18835 us Denzel Saucedo NP IMG BI PROCEDURES Final Result from Last 3 Months or Most Recently Relevant to Health Maintenance
== END 2024-12-09 12:05 | disposition home or self-care (01) ==
LOC: HO.HHCX 12:04
PROVIDERS: Visit Provider Student in an Organized Health Care Education/Training Program
DX: R05.8 Other specified cough (principal)
CPT/HCPCS: 71046

== ENCOUNTER → 2024-12-09 12:05 | Outpatient (BNV) | payer OTHER, SELFPAY | PROVIDERS: Visit Provider Radiology Diagnostic Radiology | DX: R05.9 Cough, unspecified (principal); R06.2 Wheezing | CPT/HCPCS: 71046 ==

== ENCOUNTER 2024-12-16 14:37 | Outpatient (REF) | payer OTHER, SELFPAY ==
--- OUTSIDE RECORDS SUMMARY | 2024-12-16 17:46 | XMS_ITS | Encounter Summary ---
Author Organization [employer] Address [address] [place] [address] 7 [place] [address] Care Team Providers Care Ict Support And Test Engineers Name Role Phone Elana Rdz MD Primary Care Pro vider Reason for Visit * Reason Onset Date Comments change referral 11/03/2024 Encounter Details Date Type Department Care Team ([facility] st Contact Info) Description 11/03/2024 Telephone [facility] [address] [place], [place] [phone] Elana Rdz MD [address] [place] [address] change referral Social History Tobacco Use Types [...] EST Tc from pt stating called to shop teacher to make an appointment but it is completely full, pt is requesting to be referred to another facility that is near [place], [place]. Any questions contact pt [phone] Icelandic documented in this encounter Plan of Treatment Upcoming Encounters Date Type Department Care Team (Late st Contact Info) Description 03/04/2025 3:00 PM EDT Office Visit [facility] [address] [place] [address] Elana Rdz MD [address] [place] [address] documented as of this encounter Visit Diagnoses Not on filedocumented in this encounter Additional Health Concerns Assessment Noted Time PHQ-9 Depression Total Score: 0 08/29/20 2:18 PM EST documented as of this encounter Care Teams Ict Support And Test Engineers Relationship Specialty Start Date End Date Elana Rdz MD [address] [place] [address] PCP - General Internal Medicine 05/24/23 documented as of this encounter
--- OUTSIDE RECORDS SUMMARY | 2024-12-16 17:46 | XMS_ITS | Encounter Summary ---
Author Organization [employer] Address [address] [place] [address] [address] [address] Care Team Providers Care Computer Language Coder Name Role Phone Mayda Valerio [facility] Primary Care Provider [phone] Elana Rdz MD Primary Care Pro vider Encounter Details Date Type Department Care Team (Latest Contact Info) Description 07/27/2021 Abstract [facility] CONVERSIONS Dental, Provider, DDS Social History [...] 3:00 PM EDT Office Visit [facility] MEDICINE [address] [place] [address] Elana Rdz MD 230 [place] [address] documented as of this encounter Visit Diagnoses Not on filedocumented in this encounter Care Teams Computer Language Coder Relationship Specialty Start Date End Date Mayda Valerio FNP [address] [place] [address] PCP - General Family Medicine 05/08/22 05/23/23 Elana Rdz MD [address] [place] [address] PCP - General Internal Medicine 05/24/23 documented as of this encounter
--- OUTSIDE RECORDS SUMMARY | 2024-12-16 17:46 | XMS_ITS | Encounter Summary ---
Author Organization [employer] Address [address] [place] [address] 7 [place] [address] Care Team Providers Care Splitting Machine Operator Helper Name Role Phone Mayda Valerio [facility] Primary Care Provider [phone] Elana Rdz MD Primary Care Pro vider Encounter Details Date Type Department Care Team (Latest Contact Info) Description 04/08/2019 Abstract [facility] CONVERSIONS Dental, Provider, DDS Social History Tobacco [...] 3:00 PM EDT Office Visit [facility] MEDICINE [address] [place], [place] [phone] Elana Rdz MD [address] [place] [address] documented as of this encounter Visit Diagnoses Not on filedocumented in this encounter Care Teams Splitting Machine Operator Helper Relationship Specialty Start Date End Date Mayda Valerio FNP 230 [place] [address] PCP - General Family Medicine 05/08/22 05/23/23 Elana Rdz MD [address] [place] [address] PCP - General Internal Medicine 05/24/23 documented as of this encounter
--- OUTSIDE RECORDS SUMMARY | 2024-12-16 17:46 | XMS_ITS | Encounter Summary ---
Author Organization [employer] Address [address] [place] [address] 7 [place] [address] Care Team Providers Care Rattling Machine Tender Name Role Phone Elana Rdz MD Primary Care Pro vider Reason for Visit * Reason Onset Date Comments pre-op 07/17/2023 Encounter Details Date Type Department Care Team ([facility] st Contact Info) Description 07/17/2023 Telephone [facility] MEDICINE 230 [place], [place] [phone] Elana Rdz MD 230 [place], [place] [phone] pre-op Social History Tobacco Use Types Packs/Day [...] - 07/17/2023 4:05 PM EST Tc from [facility] requesting a pre-op Location: [facility], [address] [place] [address] ext [phone] Procedure: vitrectomy of left eye Date of Procedure: 08/30 Lab: discretion of PCP EKG: yes Anesthesia: will get back with INFO Name of surgeon: Dr. Gregorio Black documented in this encounter Plan of Treatment Upcoming Encounters Date Type Department Care Team ([facility] st Contact Info) Description 03/04/2025 3:00 PM EDT Office Visit [facility] MEDICINE [address] [place] [address] Elana Rdz MD [address] [place] [address] documented as of this encounter Visit Diagnoses Not on filedocumented in this encounter Additional Health Concerns Assessment Noted Time PHQ-9 Depression Total Score: 0 12/09/19 23 9:56 AM EDT documented as of this encounter Care Teams Rattling Machine Tender Relationship Specialty Start Date End Date Elana Rdz MD [address] [place] [phone] PCP - General Internal Medicine 05/24/23 documented as of this encounter
--- OUTSIDE RECORDS SUMMARY | 2024-12-16 17:46 | XMS_ITS | Clinical Summary ---
Author Organization [facility] ity Address [address] [place] [address] Care Team Providers Care Videogame Designer Name Role Phone Unavailable Primary Care Provider [...] Influenza Vaccine (Season Ended) 2025 RSV Immunization Adult Patie nts (1 - 1-dose 75+ series) 2037 HIB [...] age to complete this topic Meningococcal B Vaccine Aged Out No l onger eligible based on patient's age to complete [...] Procedure Name Priority Date/Time Associated Diagnosis Comments [facility] SCREENING DIGITAL Routine 06/03/2018 8:36 AM EDT Encounter for screening mammogram for malignant neoplasm of breast from Last 3 Months or Most Recently Relevant to Health Maintenance Results * KAY SCREENING DIGITAL (06/03/2018 8:36 AM EDT) Anatomical Region Laterality Modality Mammography 05/29/2018 2:09 PM EDT Narrative 06/03/2018 8:[address] [facility] Diagnostic Imaging Department [address] [place] [address] Patient: ??ERENDIRA QUINTANILLA I ?/Age/Sex: 1960 - 58 - F Unit#: ??[id number] ? Location/Status: ??SPDIMAM/REG CLI ? Mnemonic/Ordering Site: ??DIGSC/SPMAM Ordering Physician: ??DENZEL SAUCEDO DRAW OPERATOR Kay Screening Digital - 06/01/18 - 1037 EXAM: [facility] Screening Digital EXAM DATE AND TIME: 06/01/2018 10:38 AM HISTORY: ??Screening. Three maternal aunts had breast carcinoma. COMPARISON: ??05/26/17, 05/20/16, 04/10/15, 04/04/14, 02/15/13 TECHNIQUE: CC and MLO views of both breasts were obtained using full field digital mammography. Bilateral digital breast tomosynthesis was performed in the MLO projection. Computer aided detection with the [employer] 7.2-H was employed. TISSUE DENSITY: c. The [...] Routine screening mammogram BILATERAL in 1 year. [address]996, [address] 3342F, 7025F Dictating Physician: ??RAMONA CAMEJO MD Electronically Signed by: ??RAMONA CAMEJO MD Dic Date/Time: ??06/03/18 0835 Sign date/Time: ??06/03/18 0836 Procedure Note Ramona Camejo MD - 08/29/2022 [facility] Diagnostic Imaging Department [address] [place] [address] Patient: LONNIE QUINTANILLASY I /Age/Sex: 1960 - 58 - F Unit#: [id number] Location/Status: [facility]/REG CLI Mnemonic/Ordering Site: [facility] Ordering Physician: DENZEL SAUCEDO DRAW OPERATOR [facility] Screening Digital - 06/01/18 - 1038 EXAM: [facility] Screening Digital EXAM DATE AND TIME: 06/01/2018 10:38 AM HISTORY: Screening. Three maternal aunts had breast carcinoma. COMPARISON: 05/26/17, 05/20/16, 04/10/15, 04/04/14, 02/15/13 TECHNIQUE: CC and MLO views of both breasts were obtained using fullfield digital mammography. Bilateral digital breast tomosynthesis was performedin the MLO projection. Computer aided detection with the [employer] Surgical Centeras employed. TISSUE DENSITY: c. The breasts are [...] Routine screening mammogram BILATERAL in 1 year. 70199, 49445 3342F, 7025F Dictating Physician: RAMONA CAMEJO MD Electronically Signed by: RAMONA CAMEJO MD Dic Date/Time: 06/03/1835 Sign date/Time: 06/03/18835 us Denzel Saucedo DRAW OPERATOR IMG BI PROCEDURES Final Result from Last 3 Months or Most Recently Relevant to Health Maintenance
--- OUTSIDE RECORDS SUMMARY | 2024-12-16 17:46 | XMS_ITS | Encounter Summary ---
Author Organization [employer] Address [address] [place] [address] Care Team Providers Care Reinforcing Metal Worker Name Role Phone Elana Rdz MD Primary Care Pro vider Encounter Details Date Type Department Care Team (Late st Contact Info) Description 12/19/2023 Orders Only [facility]INE [address] [place] [address] ProviderIsael MD Social History Tobacco Use Types [...] Description 03/04/2025 3:00 PM EDT Office Visit [facility] [address] [place] [address] Ealna Rdz MD [address] [place] [address] documented as of this encounter Procedures Procedure [...] documented as of this encounter Care Teams Reinforcing Metal Worker Relationship Specialty Start Date End Date Elana Rdz MD [address] [place] [address] PCP - General Internal Medicine 05/24/23 documented as of this encounter
--- OUTSIDE RECORDS SUMMARY | 2024-12-16 17:46 | XMS_ITS | Clinical Summary ---
Author Organization [employer] Address [address] [place] [address] 7t [place] [address] Care Team Providers Care Final Inspector Motorcyles Name Role Phone Elana Rdz MD Primary [...] Active Problems Problem Noted Date Diagnosed Date Cough 12/09/2024 Other specified glaucoma 12/09/2024 Neuropathic pain of right foot 09/05/2024 Assessment [...] Encounters Date Type Department Care Team Description 12/10/[address] [facility] MEDICINE [address] [place] [address] Elana Rdz MD Neuropathic pain of right foot (Primary Dx) 12/10/2024 Telephone [facility] [address] [place] [address] Elana Rdz MD EMG ORDER 12/10/[address] [address] Elana Rdz MD 12/09/2024 10:45 AM EDT Office Visit [address] [address] Elana Rdz MD Annual physical exam (Primary Dx); Mild intermittent asthma without complication; Mild intermittent asthma, unspecified whether complicated; Productive cough; Numbness; Neuropathic pain of right foot; Health care maintenance; Transaminitis; Acute cough; Other specified glaucoma, unspecified laterality 12/09/[address] [address] Elana Rdz MD Appointment; Referral 12/09/2024 Travel 12/01/[address] [address] Elana Rdz MD Chart prep 12/01/2024 Patient Outreach [address] [address] Elana Rdz MD Pre-visit Planning (SDOH Screening negative and Tobacco screening negative) 11/10/2024 Orders Only [facility] External Provider, [facility] 11/04/2024 3:30 PM EST Procedure Visit [address] [address] Harish Valenzuela CNM Visit for pelvic exam (Primary Dx); Breast cancer screening by mammogram; Fibroid 11/04/2024 Travel 11/03/[address] [address] Elana Rdz MD change referral from Last 3 Months Immunizations Name Administration Dates Next Due Hep B, adult 07/17/1996,02/21/1996,01/16/1996 INFLUENZA INJECTABLE QUADRIV ALANT CCIIV4 MDCK Multi-dose vial 06/21/2019 Influenza Injectable Quadriv alant Preservative Free IIV4 MDCK 06/08/2018,06/30/2017 Influenza Whole 05/24/2009 Influenza injectable quadriv alent preservative free 06/25/2022,06/26/2021,06/10/2020,05/08,06/02/2016 Influenza, IIV3, injectable 06/02/2010 Influenza, Injectable, MDCK, preservative free 06/15/2024 Influenza, Split (incl. bernardo fied surface antigen) 06/24/2013 MMR 02/11/2009 Novel Myrrdjpge-M9S8-00, all formulations 10/04/2009 Pneumococcal Polysaccharide PPSV23 07/16/2008 [...] the past 12 months, has t he [employer] [place], oil or water company threatened to shut [...] Description 03/04/2025 3:00 PM EDT Office Visit [facility] MEDICINE [address] [place] [address] Elana Rdz MD 230 [place] [address] Health Maintenance Due Date Last Done Comments [...] RENAL BI Routine 11/11/2024 3:16 PM EST BITEWINGS - 4 RADIOGRAPHIC IMAGES [...] PM EDT Narrative 12/09/2024 12:49 PM EDT ?[facility] ?[address] ?[place] [address] ?XRay Report ? Signed ? Patient: Dwight,Erendira I ?MR#: [id number] ?? [id number] ? : 1960 ?Acct:[id number] ? Age/Sex: 64 / F ?ADM Date: 12/09/24 ? Loc: HO.HHCX ? Attending Dr: Elana Mcgowan MD ? Ordering Physician: Elana Rdz MD ?? Date of Service: 12/09/24 ?? Procedure(s): XR chest 2V ?? Accession Number(s): [id number] ? cc: Elana Rdz MD ? EXAMINATION: [...] DD/ 1205 ? TD/TT: 12/09/24 1217 ? Anvil Worker: ? Procedure Note Manny Romero - 12/09/[address] [address] XRay Report Signed Patient: Erendira Quintanilla IMR#: [id number] : 2Acct:[id number] Age/Sex: 64 / FADM Date: 12/09/24 Loc: HO.HHCX Attending Dr: Elana Mcgowan MD Ordering Physician: Elana Rdz MD Date of Service: 12/09/24 Procedure(s): XR chest 2V Accession Number(s): [id number] cc: Elana Rdz MD EXAMINATION: XR CHEST [...] Sascha Davis MD 12/09/2024 12:46 PM EDT RP Dictated By: Sascha Davis MD Signed By: <Electronically signed by Sascha Davis MD in OV> 12/09/24 1246 DD/ 1205 TD/TT: 12/09/24 1217 Anvil Worker: us Elana Mcgowan MD IMG XR PROCEDURES Final Result * POCT Rapid Influenza B [facility] (12/09/2024 11:57 AM EDT) Influenza B Negative Negative, Indeterminate [facility] QC Media Lot # [id number] [facility] Lot# Expiration Date , [facility] Swab 12/09/2024 11:5 7 AM EDT us Elana Mcgowan MD POINT OF CARE SARAH T ENTER/EDIT ORDERABLES Final Result [facility] [address] [place] [phone] * POCT Rapid Influenza A [facility] (12/09/2024 11:57 AM EDT) Influenza A Negative Negative, Indeterminate [facility] QC Media Lot # [id number] [facility] Lot# Expiration Date 79,026 [facility] Swab 12/09/2024 11:5 7 AM EDT us Elana Mcgowan MD POINT OF CARE SARAH T ENTER/EDIT ORDERABLES Final Result Performing Organization Address [facility] de Phone Number [facility] [address] [place] [address] [phone] * POCT Rapid Covid-19 [facility] (12/09/2024 11:57 AM EDT) Coronavirus Antigen PCR Negative Negative, Indeterminate, None Detected, Invalid, Specimen unsatisfactory for evaluation, Weakly Positive [facility] QC Media Lot # [id number] [facility] Lot# Expiration Date ,026 [facility] Swab 12/09/2024 11:5 7 AM EDT us Elana Mcgowan MD POINT OF CARE SARAH T ENTER/EDIT ORDERABLES Final Result Performing Organization Address [facility] de Phone Number [facility] [address] [place] [address] [phone] * US RENAL BI (11/11/2024 3:16 PM EST) Anatomical Region Laterality Modality Abdomen Ultrasound 11/11/2024 3:16 PM EST Narrative 11/11/2024 3:19 PM EST ? [facility] ?[address] ?[place] [address] ? Ultrasound Report ? Signed ? Patient: Dwight,Erendira I ?MR#: [id number] ?? [id number] ? : 1960 ?Acct:[id number] ? Age/Sex: 64 / F ?ADM Date: 03/03/25 ? Loc: HO.US ? Attending Dr: Megan FLORES ? Ordering Physician: Megan Solorio ?? Date of Service: 11/10/24 ?? Procedure(s): US renal BI ?? Accession Number(s): [id number] ? cc: Megan Solorio; Elana Rdz MD ? CLINICAL HISTORY: N20.0 [...] in OV> ? 11/11/24 1518 ? DD/ ? TD/TT: 11/11/246 ? Anvil Worker: ? Procedure Note Nick, Manny - 11/11/2024 [place] [address] Ultrasound Report Signed Patient: Erendira Quintanilla IMR#: [id number] : 2Acct:[id number] Age/Sex: 64 / FADM Date: 11/10/24 Loc: HO.US Attending Dr: Megan FLORES Ordering Physician: Megan Solorio Date of Service: 11/10/24 Procedure(s): US renal BI Accession Number(s): [id number] cc: Megan Solorio; Elana Rdz MD CLINICAL [...] 11/11/24 1518 DD/ 1516 TD/TT: 11/11/24 151 Anvil Worker: [facility] External Provider IMG US PROCEDURES Final Result * BI Mammogram Screening Tomosynthesis Bilateral (11/24/2023 9:55 AM EDT) Anatomical Region Laterality Modality Breast Bilateral Mammography 11/24/2023 9:55 AM EDT Narrative 11/25/2023 12:51 PM EDT ? [facility] ? [address] ?[place] [address] ? Mammography Report ? Signed ? Patient: Dwight,Erendira I ?MR#: [id number] ?? [id number] ? : 1960 ?Acct:[id number] ? Age/Sex: 63 / F ?ADM Date: /16/24 ? Loc: HO.MAMMO ? Attending Dr: Elana Mcgowan MD ? Ordering Physician: Elana Rdz MD ?Re ?? sults: 1Negative ? Date of Service: /16/24 ?Follow Up: 1 Year From Orig ?? inal Mammogram ? Procedure(s): MM tomosynthesis screening BI ?? Accession Number(s): [id number] ? cc: Elana Rdz MD ? EXAMINATION: ?? MM SCREENING DIGITAL BREAST TOMOSYNTHESIS, BILATERAL ? CLINICAL INFORMATION: ? Screening. Asymptomatic. ? COMPARISON: ?? Mammography: This study is compared with prior exams dating back to ?? 2016. ? TECHNIQUE: ?? Digital breast tomosynthesis is [...] 1247 ? DD/ 0955 ? TD/TT: ? Anvil Worker: ? Procedure Note Manny Romero - 11/25/2023 [facility] [address] [place] [address] Dr. Ackerman, MAYRA [address] Mammography Report Signed Patient: Erendira Quintanilla [facility]#: [id number] : 2Acct:[id number] Age/Sex: 63 / FADM Date: 11/24/23 Loc: HO.MAMMO Attending Dr: Elana Mcgowan MD Ordering Physician: Elana Rdz sults: 1Negative Date of Service: 11/24/23Follow Up: 1 Year From Orig inal Mammogram Procedure(s): MM tomosynthesis screening BI Accession Number(s): [id number] cc: Elana Rdz MD EXAMINATION: MM SCREENING [...] in OV> 11/25/23 1247 DD/ 0955 TD/TT: Anvil Worker: Elana Mcgowan MD [facility] BI PROCEDURES Edited Result - Final * HPV mRNA E6/E7 w/Reflex to HPV Genotypes 16, 18/45 (10/22/2023 11:11 AM EST) HPV nRNA E6/E7 Not Detected Not Detected [facility] Comment:Methodology: Transcr iption-Mediated AmplificationThis assay detects E6/E7 viral messenger RNA (mRNA) from 14high-risk HPV types (16,18,31,33,35,39,45,51,52,56,58,59,66,68).Cervical sources are required for HPV testing.If a vaginal source from a patient who has had atotal hysterectomy with removal of cervix wassubmitted, please contact the testing laboratoryfor alternative testing options.For additional information, please refer tohttp://education.[employer]/faq/RSC415e4(This link if provided for information/educational purposes only.)THIS TEST WAS PERFORMED AT:[employer] [place] [phone] COYLE MD HPV mRNA E6/E7 [facility] HPV 16 RNA [facility] HPV 18/45 RNA [facility] 10/22/2023 11:1 1 AM EST 10/23/2023 8:00 AM EST Harish Valenzuela CNM LAB CYTOLOGY ORDERABLES F inal Result Performing Organization Address City/State/[facility] [[email or web address]] Co de Phone Number [facility] [address] [place] [phone] * Pap Smear (10/22/2023 11:11 AM EST) Swab Cervix uteri structure / Unknown 10/22/2023 11:11 AM EST 10/23/2023 8:00 AM EST Narrative [facility] - 11/06/2023 1:21 PM EST ----- ------- Name: Erendira Quintanilla I ?Age/Sex: 63/F ? : 1960 Unit#: [id number] ?? Attend Dr: HARISH VALENZUELA CNM ?Re10/22/23 ?Status: DEP REF ? Location: HO.LNP ?Disch: ? ----- ------- SPEC : [id number] ? RECD: 10/23/23 ? STATUS: ??SOUT ? REQ NUM: [id number] ? MATTHEW: 10/22/23-1111 ? SUBM DR: HARISH VALENZUELA CNM ? ENTERED: ??10/23/23 ?SP TYPE: Pap Smr ?OTHR DR: ? ORDERED: ??Pap Smear ? Interpretation ?? Satisfactory for evaluation. ?? Mild inflammation. ?? Negative for intraepithelial lesion or malignancy. ?HPV mRNA E6/E7: ?NOT DETECTED ? This assay detects E6/E7 viral messenger RNA (mRNA) from 14 high-risk HPV types (16, 18, ?? 31, 33, 35, 39, 45, 51, 52, 56, 58, 59, 66, 68) ?? HPV testing performed by [employer], [place], [place]. ??See reference laboratory ?? portion of the EMR for entire report. ?Clinical Information LMP: Postmenopausal Previous PAP test: Unknown date/findings ? Material Received ?? ThinPrep-Cervical ----- ------- Signed (signature on file) GALILEO Hutchins (ASCP) 11/06/23 1321 ? ----- ------- ? END OF REPORT ? us Harish Valenzuela [facility] CYTOLOGY ORDERABLES F inal Result [facility] [address] [place] [address] [phone] * Hepatitis C Antibody with Reflex to HCV, RNA, Quantitative, Real-Time PCR (09/04/2023 8:10 AM EST) Hepatitis C Antibody Nonreactive Nonreactive [facility] Comment:Antibodies to HCV no t detected; does not exclude early acuteHCV infection. Blood Venous blood specimen / Unknown 09/04/2023 8:10 AM EST 09/04/2023 11:19 AM EST Elana Mcgowan MD LAB BLOOD ORDERAB LES Final Result Performing Organization Address City/[facility]/ZIP Co de Phone Number [facility] [address] [place] [phone] * HIV-1/2 Antigen and Antibodies, Fourth Generation, with Reflexes (09/04/2023 8:10 AM EST) [facility] HIV AB/AG Nonreactive Nonreactive [facility] Comment:HIV-1 p24 Ag and/or HIV-1/HIV-2 Ab not detected.A test result that is nonreactive does not exclude thepossibility of exposure to or infection with HIV-1 and/orHIV-2. Nonreactive results in this assay for individualswith prior exposure to HIV-1 and/or HIV-2 may be due toantigen and antibody levels that are below the limit ofdetection of this assay.The [employer] HIV Ag/Ab Combo assay result andsupplemental assay results should be interpreted inconjunction with the patient's clinical presentation,history and other laboratory results. If the results areinconsistent with clinical evidence, additional testing issuggested to confirm the result. Blood Venous blood specimen / Unknown 09/04/2023 8:10 AM EST 09/04/2023 11:19 AM EST us Elana Mcgowan MD LAB BLOOD ORDERAB LES Final Result Performing Organization Address City/[facility]/ZIP Co de Phone Number [facility] [address] [place] [phone] [phone] * Hm Colonoscopy (12/06/2017 8:04 AM EDT) Isael Moncada MD HEALTH MAINTENANCE Final Result from Last 3 Months or Most Recently Relevant to Health Maintenance Insurance HSN PARTIAL [facility] , [address] [place] [address] DENTAL - HSN PARTIAL (MEDICAID) Care Teams Final Inspector Motorcyles Relationship Specialty Start Date End Date Elana Rdz MD [address] [place] [phone] PCP - General Internal Medicine 05/24/23
--- OUTSIDE RECORDS SUMMARY | 2024-12-16 17:46 | XMS_ITS | Encounter Summary ---
Author Organization [employer] Address [address] [place] [address] 7 [place] [address] Care Team Providers Care Wood Machine Carver Name Role Phone Elana Rdz MD Primary Care Pro vider Reason for Visit * Reason Onset Date Comments Referral 06/29/2023 Encounter Details Date Type Department Care Team ([facility] st Contact Info) Description 06/29/2023 Telephone [facility] MEDICINE [address] [place], [place] [phone] Elana Rdz MD 230 [place] [address] Referral Social History Tobacco Use Types Packs/Day [...] calling in regards to physical therapy in [place] requesting to be transferred to [facility] destination to home in [place]. Patient speaks arabic Please contact [phone] documented in this encounter Plan of Treatment Upcoming Encounters Date Type Department Care Team (Late st Contact Info) Description 03/04/2025 3:00 PM EDT Office Visit [facility] MEDICINE [address] [place] [phone] Elana Rdz MD [address] [place] [phone] documented as of this encounter Visit Diagnoses Not on filedocumented in this encounter Additional Health Concerns Assessment Noted Time PHQ-9 Depression Total Score: 0 12/09/19 9:56 AM EDT documented as of this encounter Care Teams Wood Machine Carver Relationship Specialty Start Date End Date Elana Rdz MD [address] [place] [phone] PCP - General Internal Medicine 05/24/23 documented as of this encounter
== END 2024-12-16 14:38 | disposition home or self-care (01) ==
LOC: HO.MAMMO 14:37
PROVIDERS: PCP Student in an Organized Health Care Education/Training Program; Visit Provider Student in an Organized Health Care Education/Training Program
DX: Z12.31 Encounter for screening mammogram for malignant neoplasm of breast (principal)
CPT/HCPCS: 77063; 77067

== ENCOUNTER → 2024-12-16 15:15 | Outpatient (BNV) | payer OTHER, SELFPAY | PROVIDERS: PCP Student in an Organized Health Care Education/Training Program; Visit Provider Internal Medicine | DX: Z12.31 Encounter for screening mammogram for malignant neoplasm of breast (principal) | CPT/HCPCS: 77063; 77067 ==

== ENCOUNTER 2024-12-23 07:41 | Outpatient (REF) | payer OTHER, SELFPAY ==
--- NOTE | 2024-12-23 07:44 | EMG_ITS ---
Right tibial and peroneal motor studies were performed. Right superficial peroneal, sural, and median and lateral mixed plantar sensory studies were performed. Tibial H-reflex was obtained. A needle examination was performed. IMPRESSION: Mild sensory neuropathy, predominantly impacting superficial peroneal nerve. MD JESSICA Berry/TANVIRL / [phone]
--- OUTSIDE RECORDS SUMMARY | 2024-12-23 07:44 | XMS_ITS | Encounter Summary ---
Author Organization [employer] Address [address] [place] [address] 7 [place] [address] Care Team Providers Care Electroneurodiagnostic Technician Name Role Phone Elana Rdz MD Primary Care Pro vider Reason for Visit * Reason Onset Date Comments pre-op 07/17/2023 Encounter Details Date Type Department Care Team ([facility] st Contact Info) Description 07/17/2023 Telephone [facility] MEDICINE [address] [place], [place] [phone] Elana Rdz MD 230 [place], [place] [phone] pre-op Social History Tobacco Use Types Packs/Day [...] - 07/17/2023 4:05 PM EST Tc from [facility] requesting a pre-op Location: [facility], [address] [place] [address] ext [phone] Procedure: vitrectomy of left eye Date of Procedure: 08/30 Lab: discretion of PCP EKG: yes Anesthesia: will get back with INFO Name of surgeon: Dr. Gregoroi Black documented in this encounter Plan of Treatment Upcoming Encounters Date Type Department Care Team ([facility] st Contact Info) Description 03/04/2025 3:00 PM EDT Office Visit [facility] MEDICINE [address] [place] [phone] Elana Rdz MD [address] [place] [phone] documented as of this encounter Visit Diagnoses Not on filedocumented in this encounter Additional Health Concerns Assessment Noted Time PHQ-9 Depression Total Score: 0 12/09/19 23 9:56 AM EDT documented as of this encounter Care Teams Electroneurodiagnostic Technician Relationship Specialty Start Date End Date Elana Rdz MD [address] [place] [phone] PCP - General Internal Medicine 05/24/23 documented as of this encounter
--- OUTSIDE RECORDS SUMMARY | 2024-12-23 07:45 | XMS_ITS | Encounter Summary ---
Author Organization [employer] Address [address] 7t [place] [address] Care Team Providers Care Coordinator Hotels Name Role Phone Elana Rdz MD Primary Care Pro vider Encounter Details Date Type Department Care Team (Late st Contact Info) Description 12/19/2023 Orders Only [facility] MEDICINE [address] [place] [address] ProviderIsael MD Social History Tobacco Use Types [...] Description 03/04/2025 3:00 PM EDT Office Visit [facility] MEDICINE [address] [place] [phone] Elana Rdz MD [address] [place] [phone] documented as of this encounter Procedures Procedure [...] documented as of this encounter Care Teams Coordinator Hotels Relationship Specialty Start Date End Date Elana Rdz MD [address] [place] [phone] PCP - General Internal Medicine 05/24/23 documented as of this encounter
--- OUTSIDE RECORDS SUMMARY | 2024-12-23 07:45 | XMS_ITS | Encounter Summary ---
Author Organization [employer] Address [address] [place] [address] 7 [place] [address] Care Team Providers Care Sprinkler Truck Driver Name Role Phone Mayda Valerio [facility] Primary Care Provider Elana Rdz MD Primary Care Pro vider Encounter Details Date Type Department Care Team (Latest Contact Info) Description 04/08/2019 Abstract [facility] Dental, Provider, DDS Social History [...] Description 03/04/2025 3:00 PM EDT Office Visit [facility] 230 [place], [place] [phone] Elana Rdz MD 230 [place] [address] documented as of this encounter Visit Diagnoses Not on filedocumented in this encounter Care Teams Sprinkler Truck Driver Relationship Specialty Start Date End Date Mayda Valerio FNP 230 [place] [address] PCP - General Family Medicine 05/08/22 05/23/23 Elana Rdz MD [address] [place] [phone] PCP - General Internal Medicine 05/24/23 documented as of this encounter
--- OUTSIDE RECORDS SUMMARY | 2024-12-23 07:45 | XMS_ITS | Clinical Summary ---
Author Organization [employer] Address [address] [place] [address] 7t [place] [address] Care Team Providers Care Insurance Claims Supervisor Name Role Phone Elana Rdz MD [...] Department Care Team Description 12/10/2024 Orders Only [facility] MEDICINE [address] [place] [phone] Elana Rdz MD Neuropathic pain of right foot (Primary Dx) 12/10/2024 Telephone [facility] [address] [place] [address] Elana Rdz MD EMG ORDER 12/10/[address] [address] Elana Rdz MD 12/09/2024 10:45 AM EDT Office Visit [address] [address] Elana Rdz MD Annual physical exam (Primary Dx); Mild intermittent asthma without complication; Mild intermittent asthma, unspecified whether complicated; Productive cough; Numbness; Neuropathic pain of right foot; Health care maintenance; Transaminitis; Acute cough; Other specified glaucoma, unspecified laterality 12/09/[address] [address] Elana Rdz MD Appointment; Referral 12/09/2024 Travel 12/01/[address] [address] Elana Rdz MD Chart prep 12/01/2024 Patient Outreach [address] [address] Elana Rdz MD Pre-visit Planning (SDOH Screening negative and Tobacco screening negative) 11/10/2024 Orders Only [facility] External Provider, [facility] 11/04/2024 3:30 PM EST Procedure Visit [address] [address] Harish Valenzuela CNM Visit for pelvic exam (Primary Dx); Breast cancer screening by mammogram; Fibroid 11/04/2024 Travel 11/03/[address] [address] Elana Rdz MD change referral from Last [...] fied surface antigen) 06/24/2013 MMR 02/11/2009 Novel [id number], all formulations 10/04/2009 Pneumococcal Polysaccharide PPSV23 07/16/2008 [...] the past 12 months, has t he [employer], oil or water company threatened to shut [...] EDT Office Visit [facility] MEDICINE [address] [place] [phone] Elana Rdz MD [address] [place] [address] Health Maintenance Due Date Last Done Comments [...] 08/15/2025 08/14/20, 11/22/2023, 07/25/2023, Additional history exists SDOH Screening 12/01/2025 12/01/2024 Tobacco Screening 12/09/2025 12/09/2024 Mammogram 12/16/2026 12/16/2024, 11/08, 10/29/2021 Colonoscopy 12/07/2027 12/06/2017, 02/20/2013 Colorectal Cancer [...] Procedure Name Priority Date/Time Associated Diagnosis Comments BI MAMMOGRAM SCREENING TOMOSYNTHESIS BILATERAL Routine 12/16/2024 3:00 PM EDT Breast cancer screening by mammogram XR CHEST 2 VIEWS Routine 12/09/2024 12:0 [...] ESTABLISHED PATIENT Routine 08/14/2024 3:00 PM EST HPV MRNA E6/E7 REFLEX TO HPV 16, [...] Recently Relevant to Health Maintenance Results * BI Mammogram Screening Tomosynthesis Bilateral (12/16/2024 3:00 PM EDT) Anatomical Region Laterality Modality Breast Bilateral Mammography 12/16/2024 3:00 PM EDT Narrative 12/22/2024 5:27 PM EDT ? [facility] [place] ? [address] ?[place] [address] ?[phone] ? Mammography Report ? Signed ? Patient: Dwight,Erendira I ?MR#: [id number] ?? [id number] ? : 1960 ?Acct:[id number] ? Age/Sex: 64 / F ?ADM Date: 12/16/24 ? Loc: HO.MAMMO ? Attending Dr: Elana Mcgowan MD ? Ordering Physician: HARISH VALENZUELA CNM ?Results: 2 ?? Benign Findings ? Date of Service: 12/16/24 ?Follow Up: 1 Year From Orig ?? inal Mammogram ? Procedure(s): MM tomosynthesis screening BI ?? Accession Number(s): [id number] ? cc: Elana Rdz MD; HARISH VALENZUELA CNM ? EXAMINATION: ?? MM SCREENING DIGITAL BREAST TOMOSYNTHESIS, BILATERAL ? CLINICAL INFORMATION: ? Screening. Asymptomatic. ? COMPARISON: ?? Mammography: Comparison is made with available priors ? TECHNIQUE: ?? Digital breast mammography with tomosynthesis is performed in both the ?? craniocaudal and mediolateral oblique views along with computer-aided ?? detection (CAD). ? FINDINGS: ?? The breasts are heterogeneously dense, which may obscure small masses ?? (ACR BI-RADS breast composition Category c). ?? Bilateral scattered focal asymmetries are stable. ?? There are no significant masses, abnormal calcifications, or other ?? abnormalities. ? MM/MM tomosynthesis screening BI ?? IMPRESSION: ?? No mammographic evidence of malignancy. ? ASSESSMENT: ? BI-RADS BI-RADS 2 - Benign Findings ? RECOMMENDATION: ?? Routine annual mammography screening. ? 1 year F/U ? This examination should not preclude the clinical evaluation of a ?? suspicious palpable abnormality. ? This patient's information was entered into a reminder system with a ?? target due date for their next mammogram. ? Electronically signed by: ??Terri Barber DO ??12/22/2024 05:24 PM EDT ? Dictated By: ?Terri Barber DO ? Signed By: ?<Electronically signed by Terri Barber, DO in OV> ? 12/22/24 1724 ? DD/ 1500 ? TD/TT: 12/16/24 1510 ? Professor Of Industrial Technology: ? Procedure Note Manny Romero - 12/22/2024 [facility] [address] [place] [address] Mammography Report Signed Patient: Erendira Quintanilla IMR#: [id number] : 1960cct:[id number] Age/Sex: 64 / FADM Date: 12/16/24 Loc: HO.MAMMO Attending Dr: Elana Mcgowan MD Ordering Physician: HARISH VALENZUELAesults: 2 Benign Findings Date of Service: 12/16/24Follow Up: 1 Year From Orig inal Mammogram Procedure(s): MM tomosynthesis screening BI Accession Number(s): [id number] cc: Elana Rdz MD; HARISH VALENZUELA CNM EXAMINATION: MM SCREENING DIGITAL BREAST TOMOSYNTHESIS, BILATERAL CLINICAL INFORMATION: Screening. Asymptomatic. COMPARISON: Mammography: Comparison is made with available priors TECHNIQUE: Digital breast mammography with tomosynthesis is performed in both the craniocaudal and mediolateral oblique views along with computer-aided detection (CAD). FINDINGS: The breasts are heterogeneously dense, which may obscure small masses (ACR BI-RADS breast composition Category c). Bilateral scattered focal asymmetries are stable. There are no significant masses, abnormal calcifications, or other abnormalities. MM/MM tomosynthesis screening BI IMPRESSION: No mammographic evidence of malignancy. ASSESSMENT: BI-RADS BI-RADS 2 - Benign Findings RECOMMENDATION: Routine annual mammography screening. 1 year F/U This examination should not preclude the clinical evaluation of a suspicious palpable abnormality. This patient's information was entered into a reminder system with a target due date for their next mammogram. Electronically signed by: Terri Barber DO 12/22/2024 05:24 PM EDT RP Dictated By: Terri Barber DO Signed By: <Electronically signed by Terri Barber DO in OV> 12/22/24 1724 DD/ 1500 TD/TT: 12/16/24 1510 Professor Of Industrial Technology: Harish MOOREM IMG BI PROCEDURES Edited Result - Final * XR Chest 2 Views (12/09/2024 12:05 PM EDT) Anatomical Region Laterality Modality Chest Radiographic Renetta ging 12/09/2024 12:0 5 PM EDT Narrative 12/09/2024 12:49 PM EDT ?[facility] ?[address] ?[place] [address] ?XRay Report ? Signed ? Patient: Dwight,Erendira I ?MR#: [id number] ?? [id number] ? : 1960 ?Acct:[id number] ? Age/Sex: 64 / F ?ADM Date: 04/01/25 ? Loc: HO.HHCX ? Attending Dr: Elana Mcgowan MD ? Ordering Physician: Elana Rdz MD ?? Date of Service: 12/09/24 ?? Procedure(s): XR chest 2V ?? Accession Number(s): [id number] ? cc: Elana Rdz MD ? EXAMINATION: [...] DD/ 1205 ? TD/TT: 12/09/24 1217 ? Professor Of Industrial Technology: ? Procedure Note Manny Romero - 12/09/[address] [address] XRay Report Signed Patient: Erendira Quintanilla IMR#: [id number] : 2Acct:[id number] Age/Sex: 64 / FADM Date: 12/09/24 Loc: HO.HHCX Attending Dr: Elana Mcgowan MD Ordering Physician: Elana Rdz MD Date of Service: 12/09/24 Procedure(s): XR chest 2V Accession Number(s): [id number] cc: Elana Rdz MD EXAMINATION: XR CHEST [...] 12/09/24 1246 DD/ 1205 TD/TT: 12/09/24 1217 Professor Of Industrial Technology: us Elana Mcgowan MD IMG XR PROCEDURES Final Result * POCT Rapid Influenza B [place] ID NOW (12/09/2024 11:57 AM EDT) Influenza B Negative Negative, Indeterminate [facility] QC Media Lot # [id number] [facility] Lot# Expiration Date [facility] Swab 12/09/2024 11:5 7 AM EDT us Elana Mcgowan MD POINT OF CARE SARAH T ENTER/EDIT ORDERABLES Final Result Performing Organization Address City/[facility]/[place] Co de Phone Number [facility] [address] [place] [phone] * POCT Rapid Influenza A [place] ID NOW (12/09/2024 11:57 AM EDT) Pathologist [facility] Influenza A Negative Negative, Indeterminate [facility] QC Media Lot # [id number] [facility] Lot# Expiration Date [facility] Swab 12/09/2024 11:5 7 AM EDT us Elana Mcgowan MD POINT OF CARE SARAH T ENTER/EDIT ORDERABLES Final Result Performing Organization Address [facility]UST Co de Phone Number [facility] [address] [place] [phone] * POCT Rapid Covid-19 [place] ID NOW (12/09/2024 11:57 AM EDT) Pathologist [facility] Coronavirus Antigen PCR Negative Negative, Indeterminate, None Detected, Invalid, Specimen unsatisfactory for evaluation, Weakly Positive [facility] QC Media Lot # [id number] [facility] Lot# Expiration Date [phone] [facility] Swab 12/09/2024 11:5 7 AM EDT us Elana Mcgowan MD POINT OF CARE SARAH T ENTER/EDIT ORDERABLES Final Result [facility] [address] [place] [address] [phone] * US RENAL BI (11/11/2024 3:16 PM EST) Anatomical Region Laterality Modality Abdomen Ultrasound 11/11/2024 3:16 PM EST Narrative 11/11/2024 3:19 PM EST ? [facility] ?[address] ?[place] [address] ? Ultrasound Report ? Signed ? Patient: Erendira Quintanilla I ?MR#: [id number] ?? [id number] ? : 1960 ?Acct:[id number] ? Age/Sex: 64 / F ?ADM Date: 11/10/24 ? Loc: HO.US ? Attending Dr: Megan FLORES ? Ordering Physician: Megan Solorio ?? Date of Service: 11/10/24 ?? Procedure(s): US renal BI ?? Accession Number(s): [id number] ? cc: Megan Solorio; Elana Rdz MD [...] by Krissy Kohli MD in OV> ? 11/11/241517 ? DD/ 15 ? TD/TT: 11/11/24 1516 ? Professor Of Industrial Technology: ? Procedure Note Donotmonyter, Image - 11/11/2024 [place] [address] Ultrasound Report Signed Patient: Erendira Quintanilla [facility]#: [id number] : 2Acct:[id number] Age/Sex: 64 / FADM Date: 11/10/24 Loc: .US Attending Dr: Megan FLORES Ordering Physician: Megan Solorio Date of Service: 11/10/24 Procedure(s): US renal BI Accession Number(s): [id number] cc: Megan Solorio; Elana Rdz MD CLINICAL [...] Kohli MD in OV> 11/11/24 1518 DD/ 15 TD/TT: 11/11/241515 Professor Of Industrial Technology: us [facility] External Provider IMG US PROCEDURES Final Result * HPV mRNA E6/E7 w/Reflex to HPV Genotypes 16, 18/45 (10/22/2023 11:11 AM EST) HPV nRNA E6/E7 Not Detected Not Detected [facility] Comment:Methodology: Transcr iption-Mediated AmplificationThis assay detects E6/E7 viral messenger RNA (mRNA) from 14high-risk HPV types (16,18,31,33,35,39,45,51,52,56,58,59,66,68).Cervical sources are required for HPV testing.If a vaginal source from a patient who has had atotal hysterectomy with removal of cervix wassubmitted, please contact the testing laboratoryfor alternative testing options.For additional information, please refer tohttp://education.Rarelook/faq/NWL081h7(This link if provided for information/educational purposes only.)THIS TEST WAS PERFORMED AT:[facility] [place] [phone] COYLE MD HPV mRNA E6/E7 TNP [facility] HPV 16 RNA [facility] HPV 18/45 RNA [facility] 10/22/2023 11:1 1 AM EST 10/23/2023 8:00 AM EST us Harish Valenzuela [facility] CYTOLOGY ORDERABLES F inal Result Performing Organization Address City/State/[place] Co de Phone Number [facility] [address] [place] [phone] * Pap Smear (10/22/2023 11:11 AM EST) Swab Cervix uteri structure / Unknown 10/22/2023 11:11 AM EST 10/23/2023 8:00 AM EST Narrative [facility] - 11/06/2023 1:21 PM EST ----- ------- Name: Erendira Quintanilla I ?Age/Sex: 63/F ? : 1960 Unit#: [id number] ?? Attend Dr: HARISH VALENZUELA CNM ?Re10/22/23 ?Status: DEP REF ? Location: HO.LNP ?Disch: ? ----- ------- SPEC : [id number] ? RECD: 10/23/23 ? STATUS: ??SOUT ? REQ NUM: [id number] ? MATTHEW: 10/22/23-1111 ? SUBM DR: HARISH [...] 66, 68) ?? HPV testing performed by [facility], [place], [place]. ??See reference laboratory ?? portion of the EMR for entire report. ?Clinical Information LMP: Postmenopausal Previous PAP test: Unknown date/findings ? Material Received ?? ThinPrep-Cervical ----- ------- Signed (signature on file) GALILEO Hutchins (ASCP) 11/06/23 1321 ? ----- ------- ? END OF REPORT ? us Harish Valenzuela [facility] CYTOLOGY ORDERABLES F inal Result [facility] [address] [place] [phone] * Hepatitis C Antibody with Reflex to HCV, RNA, Quantitative, Real-Time PCR (09/04/2023 8:10 AM EST) Pathologist [facility] Hepatitis C Antibody Nonreactive Nonreactive [facility] Comment:Antibodies to HCV no t detected; does not exclude early acuteHCV infection. Blood Venous blood specimen / Unknown 09/04/2023 8:10 AM EST 09/04/2023 11:19 AM EST Elana Mcgowan MD LAB BLOOD ORDERAB LES Final Result Performing Organization Address City/[facility]/ZIP Co de Phone Number [facility] [address] [place] [phone] * HIV-1/2 Antigen and Antibodies, Fourth Generation, with Reflexes (09/04/2023 8:10 AM EST) [facility] HIV AB/AG Nonreactive Nonreactive [facility] Comment:HIV-1 p24 Ag and/or HIV-1/HIV-2 Ab not detected.A test result that is nonreactive does not exclude thepossibility of exposure to or infection with HIV-1 and/orHIV-2. Nonreactive results in this assay for individualswith prior exposure to HIV-1 and/or HIV-2 may be due toantigen and antibody levels that are below the limit ofdetection of this assay.The [employer] HIV Ag/Ab Combo assay result andsupplemental assay results should be interpreted inconjunction with the patient's clinical presentation,history and other laboratory results. If the results areinconsistent with clinical evidence, additional testing issuggested to confirm the result. Blood Venous blood specimen / Unknown 09/04/2023 8:10 AM EST 09/04/2023 11:19 AM EST us Elana Mcgowan MD LAB BLOOD ORDERAB LES Final Result Performing Organization Address City/[facility]/ZIP Co de Phone Number [facility] [address] [place] [address] [place] [phone] * Hm Colonoscopy (12/06/2017 8:04 AM EDT) us Historical Provider MD HEALTH MAINTENANCE Final Result from Last 3 Months or Most Recently Relevant to Health Maintenance Insurance [employer] [id number] [place] [address] , [address] [place] [address] DENTAL - HSN PARTIAL (MEDICAID) Care Teams Insurance Claims Supervisor Relationship Specialty Start Date End Date Elana Rdz MD [address] [place] [phone] PCP - General Internal Medicine 05/24/23
--- OUTSIDE RECORDS SUMMARY | 2024-12-23 07:45 | XMS_ITS | Clinical Summary ---
Author Organization [facility] ity Address [address] [place] [address] Care Team Providers Care Correctional Supervising Cook Name Role Phone Unavailable Primary Care Provider [...] Procedure Name Priority Date/Time Associated Diagnosis Comments [facility] SCREENING DIGITAL Routine 06/03/2018 8:36 AM EDT Encounter for screening mammogram for malignant neoplasm of breast from Last 3 Months or Most Recently Relevant to Health Maintenance Results * KAY SCREENING DIGITAL (06/03/2018 8:36 AM EDT) Anatomical Region Laterality Modality Mammography 05/29/2018 2:09 PM EDT Narrative 06/03/2018 8:36 AM EDT [facility] Diagnostic Imaging Department [address] [place] [address] Patient: ??ERENDIRA QUINTANILLA I ?/Age/Sex: 1960 - 58 - F Unit#: ??[id number] ? Location/Status: ??SPDIMAM/REG CLI ? Mnemonic/Ordering Site: ??DIGSC/SPMAM Ordering Physician: ??DENZEL SAUCEDO INFANTRY ASSAULTMAN Kay Screening Digital - 06/01/18 - 1037 EXAM: [facility] Screening Digital EXAM DATE AND TIME: 06/01/2018 10:38 AM HISTORY: ??Screening. Three maternal aunts had breast carcinoma. COMPARISON: ??05/26/17, 05/20/16, 04/10/15, 04/04/14, 02/15/13 TECHNIQUE: CC and MLO views of both breasts were obtained using full field digital mammography. Bilateral digital breast tomosynthesis was performed in the MLO projection. Computer aided detection with the [employer] 7.2-H was employed. TISSUE DENSITY: c. The [...] Routine screening mammogram BILATERAL in 1 year. 23941, 89415 3342F, 7025F Dictating Physician: ??RAMONA CAMEJO MD Electronically Signed by: ??RAMONA CAMEJO MD Dic Date/Time: ??06/03/18 0835 Sign date/Time: ??06/03/18 0836 Procedure Note Ramona Camejo MD - 08/29/2022 [facility] Diagnostic Imaging Department [address] [place] [address] Patient: LONNIE QUINTANILLASY I /Age/Sex: 1960 - 58 - F Unit#: [id number] Location/Status: [facility]/REG CLI Mnemonic/Ordering Site: [facility] Ordering Physician: DENZEL SAUCEDO INFANTRY ASSAULTMAN [facility] Screening Digital - 06/01/18 - 1038 EXAM: [facility] Screening Digital EXAM DATE AND TIME: 06/01/2018 10:38 AM HISTORY: Screening. Three maternal aunts had breast carcinoma. COMPARISON: 05/26/17, 05/20/16, 04/10/15, 04/04/14, 02/15/13 TECHNIQUE: CC and MLO views of both breasts were obtained using fullfield digital mammography. Bilateral digital breast tomosynthesis was performedin the MLO projection. Computer aided detection with the [employer].2-C-Vibesas employed. TISSUE DENSITY: c. The breasts are [...] Routine screening mammogram BILATERAL in 1 year. 03131, 41338 3342F, 7025F Dictating Physician: RAMONA CAMEJO MD Electronically Signed by: RAMONA CAMEJO MD Dic Date/Time: 06/03/1835 Sign date/Time: 06/03/18835 us Denzel Saucedo INFANTRY ASSAULTMAN IMG BI PROCEDURES Final Result from Last 3 Months or Most Recently Relevant to Health Maintenance
--- OUTSIDE RECORDS SUMMARY | 2024-12-23 07:45 | XMS_ITS | Encounter Summary ---
Author Organization [employer] Address [address] [place] [address] [address] [address] Care Team Providers Care Technical Instructor Course Developer Name Role Phone Mayda Valerio [facility] Primary Care Provider [phone] Elana Rdz MD Primary Care Pro vider Encounter Details Date Type Department Care Team (Latest Contact Info) Description 07/27/2021 Abstract [facility] CONVERSIONS Dental, Provider, DDS Social History [...] Description 03/04/2025 3:00 PM EDT Office Visit [facility] MEDICINE [address] [place] [address] Elana Rdz MD [address] [place] [address] documented as of this encounter Visit Diagnoses Not on filedocumented in this encounter Care Teams Technical Instructor Course Developer Relationship Specialty Start Date End Date Mayda Valerio FNP [address] [place] [address] PCP - General Family Medicine 05/08/22 05/23/23 Elana Rdz MD [address] [place] [address] PCP - General Internal Medicine 05/24/23 documented as of this encounter
--- OUTSIDE RECORDS SUMMARY | 2024-12-23 07:45 | XMS_ITS | Encounter Summary ---
Author Organization [employer] Address [address] [place] [address] 7 [place] [address] Care Team Providers Care Metallurgical Technician Name Role Phone Elana Rdz MD Primary Care Pro vider Reason for Visit * Reason Onset Date Comments Referral 06/29/2023 Encounter Details Date Type Department Care Team ([facility] st Contact Info) Description 06/29/2023 Telephone [facility] MEDICINE [address] [place], [place] [phone] Elana Rdz MD [address] [place] [address] Referral Social History Tobacco Use Types Packs/Day [...] calling in regards to physical therapy in [place] requesting to be transferred to [facility] destination to home in [place]. Patient speaks romanian Please contact [phone] documented in this encounter Plan of Treatment Upcoming Encounters Date Type Department Care Team (Late st Contact Info) Description 03/04/2025 3:00 PM EDT Office Visit [facility] MEDICINE [address] [place] [address] Elana Rdz MD [address] [place] [address] documented as of this encounter Visit Diagnoses Not on filedocumented in this encounter Additional Health Concerns Assessment Noted Time PHQ-9 Depression Total Score: 0 12/09/19 9:56 AM EDT documented as of this encounter Care Teams Metallurgical Technician Relationship Specialty Start Date End Date Elana Rdz MD [address] [place] [address] PCP - General Internal Medicine 05/24/23 documented as of this encounter
--- OUTSIDE RECORDS SUMMARY | 2024-12-23 07:45 | XMS_ITS | Encounter Summary ---
Author Organization [employer] Address [address] [place] [address] 7 [place] [address] Care Team Providers Care Dump Motor Operator Name Role Phone Elana Rdz MD Primary Care Pro vider Reason for Visit * Reason Onset Date Comments change referral 11/03/2024 Encounter Details Date Type Department Care Team ([facility] st Contact Info) Description 11/03/2024 Telephone [facility] MEDICINE [address] [place], [place] [phone] Elana Rdz MD [address] [place] [address] change referral Social History Tobacco Use Types [...] EST Tc from pt stating called to mri technologist to make an appointment but it is completely full, pt is requesting to be referred to another facility that is near [place], [place]. Any questions contact pt [phone] Urdu documented in this encounter Plan of Treatment Upcoming Encounters Date Type Department Care Team (Late st Contact Info) Description 03/04/2025 3:00 PM EDT Office Visit [facility] MEDICINE [address] [place] [address] Elana Rdz MD [address] [place] [address] documented as of this encounter Visit Diagnoses Not on filedocumented in this encounter Additional Health Concerns Assessment Noted Time PHQ-9 Depression Total Score: 0 08/29/20 2:18 PM EST documented as of this encounter Care Teams Dump Motor Operator Relationship Specialty Start Date End Date Elana Rdz MD [address] [place] [address] PCP - General Internal Medicine 05/24/23 documented as of this encounter
== END 2024-12-23 07:42 | disposition home or self-care (01) ==
LOC: HO.NEURO 07:41
PROVIDERS: PCP Student in an Organized Health Care Education/Training Program; Visit Provider Student in an Organized Health Care Education/Training Program
DX: G60.8 Other hereditary and idiopathic neuropathies (principal)
CPT/HCPCS: 95860; 95886; 95910

== ENCOUNTER 2025-02-27 08:51 | Outpatient (REF) | payer OTHER, SELFPAY ==
--- OUTSIDE RECORDS SUMMARY | 2025-02-27 08:57 | XMS_ITS | Encounter Summary ---
Author Organization [employer] Address [address] [place] [address] Care Team Providers Care Trailer Body Assembler Name Role Phone Elana Rdz MD Primary Care Pro vider Reason for Visit * Reason Onset Date Comments pre-op 07/17/2023 Encounter Details Date Type Department Care Team ([facility] st Contact Info) Description 07/17/2023 Telephone [facility] MEDICINE [address] [place], [place] [phone] Elana dRz MD [address] [place] [address] pre-op Social History Tobacco Use Types Packs/Day [...] - 07/17/2023 4:05 PM EST Tc from [facility] [place] requesting a pre-op Location: [facility], [address] [place] [address] ext [phone] Procedure: vitrectomy of left eye Date of Procedure: 08/30 Lab: discretion of PCP EKG: yes Anesthesia: will get back with INFO Name of surgeon: Dr. Gregorio Black documented in this encounter Plan of Treatment Upcoming Encounters Date Type Department Care Team ([facility] st Contact Info) Description 03/04/2025 3:00 PM EDT Office Visit [facility] MEDICINE [address] [place] [address] Elana Rdz MD [address] [place] [address] documented as of this encounter Visit Diagnoses Not on filedocumented in this encounter Additional Health Concerns Assessment Noted Time PHQ-9 Depression Total Score: 0 12/09/19 23 9:56 AM EDT documented as of this encounter Care Teams Trailer Body Assembler Relationship Specialty Start Date End Date Elana Rdz MD [address] [place] [address] PCP - General Internal Medicine 05/24/23 documented as of this encounter
[2025-02-27 11:36] LABS: Hematocrit 41.8 % (37.0-47.0); Hemoglobin 14.1 g/dl (12.0-16.0); Mean Corpuscular HGB Conc 33.7 g/dl (31.0-35.0); Mean Corpuscular Hemoglobin 30.1 pg (27.0-33.0); Mean Corpuscular Volume 89.3 fL (80.0-98.0); Mean Platelet Volume 11.2 fL (9.4-12.3); Platelet Count 232 X10*3/uL (160-400); Red Blood Count 4.68 X10*6/uL (4.20-5.50); Red Cell Distribution Width 12.4 % (11.0-16.0)
[2025-02-27 11:47] LABS: Estimated Average Glucose 105 mg/dL; Hemoglobin A1C 130.0599 umol/L; Hemoglobin A1c % 5.3 % (<6.0); Total Hemoglobin (HGBA1C) 3726.9841 umol/L
[2025-02-27 12:14] LABS: Alanine Aminotransferase 30 U/L (0-31); Albumin Level 4.5 g/dL (3.5-5.0); Alkaline Phosphatase 70 U/L (39-117); Anion Gap 10 (12-20); Aspartate Amino Transferase 27 U/L (5-31); Bilirubin Total 0.8 mg/dL (0.0-1.0); Blood Urea Nitrogen 15 mg/dL (9-16); Calcium 9.3 mg/dL (8.4-10.2); Carbon Dioxide 26 mmol/L (22-29); Chloride 108 mmol/L (96-108); Cholesterol 238 mg/dL (<200); Estimated Glomerular Filt Rate > 60; Glucose Random 85 mg/dL (60-115); HDL Cholesterol 51 mg/dL (>40); LDL Cholesterol Calculated 160 mg/dL (<100); Potassium 4.1 mmol/L (3.3-5.1); Sodium 140 mmol/L (135-145); Total Protein 7.3 g/dL (6.5-8.0); Triglycerides 137 mg/dL (<150)
[2025-02-27 12:35] LABS: TSH reflex Free T4 2.18 uIU/mL (0.32-4.0)
[2025-02-27 12:47] LABS: Folate 11.4 ng/mL (> or = 4.0); Vitamin B12 250 pg/mL (200-900)
[2025-02-27 13:04] LABS: CT PCR NOT DETECTED (Not Detect.); NG PCR NOT DETECTED (Not Detect.)
[2025-02-28 08:44] LABS: HIV AB/AG Nonreactive (Nonreactive); HIV Num 1 0.05 S/CO (0.00-0.99); ~Hepatitis C Antibody Nonreactive (Nonreactive)
[2025-02-28 08:53] LABS: Syphilis Screen Nonreactive (Nonreactive)
== END 2025-02-27 08:52 | disposition home or self-care (01) ==
LOC: HO.HHCL 08:51
PROVIDERS: PCP Student in an Organized Health Care Education/Training Program; Visit Provider Student in an Organized Health Care Education/Training Program
DX: Z00.00 Encounter for general adult medical examination without abnormal findings (principal); Z13.1 Encounter for screening for diabetes mellitus; Z11.59 Encounter for screening for other viral diseases; Z13.0 Encounter for screening for diseases of the blood and blood-forming organs and certain disorders involving the immune mechanism; Z13.29 Encounter for screening for other suspected endocrine disorder; Z13.220 Encounter for screening for lipoid disorders
CPT/HCPCS: 80053; 80061; 82607; 82746; 83036; 84443; 85027; 86780; 86803; 87389; 87491; 87591

== ENCOUNTER 2025-05-20 15:20 | Outpatient (AMB) | payer OTHER, SELFPAY ==
--- OUTSIDE RECORDS SUMMARY | 2025-03-30 10:00 | XMS_ITS ---
Author Organization [facility] Address [address] [place] [address] Care Team Providers Care Welfare Adviser Name Role Phone Elana Rdz Primary Care Provider Kit Salinas [phone] Encounters Encounter Location Date [facility] [address] [facility] [address] [place] [address] 03/30/2025 Kit Garcia Plan Of Treatment No Information Progress Notes * Erendira QUINTANILLA IDOB:1959 (65 yo F)Acc No.[id number]:03/30/2025 Progress Notes Patient: Erendira CHOUDHURY I Provider: Kari Garcia DPM :1960 A ge:65 Y S ex:Female Date:03/30/2025 Address:[address] [place] [address], [address] Pcp:Elana Mcgowan Subjective: * Chief Complaints: [...] Garcia DPM Date: 0 03/30/2025 Generated for Printi ng/Faxing/eTransmitting on: 0 05/20/2025 06:18 PM EDT
--- NOTE | 2025-05-20 15:35 | MHC.OFFVIS ---
Intake Visit Reasons: follow up Intake Note: Patient is present for F/U Urology Medication:VITAMIN B6 Antibiotic Allergy:BACTRIM,SULFA,TRIMETHOPRIM,GENTAMICIN Blood Thinner:NONE Molded Goods Inspector Trimmer Required: No Molded Goods Inspector Trimmer Services: Molded Goods Inspector Trimmer Present Molded Goods Inspector Trimmer Name: ant [id number] Allergies sulfamethoxazole (From BACTRIM) Allergy (Severe, Verified 05/20/25 16:18) RASH trimethoprim (From BACTRIM) Allergy (Severe, Verified 05/20/25 16:18) RASH gentamicin Allergy (Verified 05/20/25 16:18) Unknown Sulfa (Sulfonamide Antibiotics) Allergy (Verified 05/20/25 16:18) Unknown Medication List - Last Reconciled 05/20/25 by MARK Mario ascorbic acid (vitamin C) mg PO pyridoxine (vitamin B6) 50 mg PO DAILY 30 days HPI Comments Details: Erendira is a pleasant 65-year-old Burmese-speaking female patient of Dr. Madden. She has a past medical history of asthma and renal stones. She presents to the office today for her nephrolthiasis. In discussion with the patient today she reports having recently seeked urgent care services for right-sided flank pain she had been experiencing at which time she was given Flomax and recommendations were made for follow-up with Urology. We discussed most recent imaging from November 2024 noted too small 2 mm in 3 mm nonobstructing right renal calculi. No hydronephrosis noted bilaterally. In office urinalysis results reviewed with the patient today 3+ microscopic hematuria otherwise within normal limits. We did discussed potential for current passage of stone given patient continues to experience right-sided flank pain with microscopic hematuria noted on UA today. She otherwise denies incontinence, nocturia, dysuria, foul smelling urine, changes to urinary stream, fever, and or chills. She is happy with her current voiding parameters. We discussed obtaining CT KUB for further assessment evaluation. All questions were answered. She otherwise offers no other issues or concerns at this time. [facility] Medical History Surgical complication involving left eye Asthma Kidney calculi Social History Alcohol intake: never Patient Tobacco Use Status: Never used Tobacco Review of Systems Const All systems reviewed & are unremarkable except as noted in HPI and below Physical Exam Const General: cooperative, healthy appearing, comfortable, no acute distress, well developed, alert and awake Orientation/consciousness: patient oriented x3 Limitations: language barrier HEENT Head: Yes normal to inspection, Yes normocephalic and Yes atraumatic Ears: hearing grossly normal bilaterally Eyes General: appearance normal, both eyes and all related structures Neck Neck: Yes normal visual inspection and Yes trachea midline Chest Chest palpation & inspection: normal inspection of the chest Resp Effort & Inspection: normal respiratory effort and able to speak in complete sentences Cardio Rate: regular rate GI Inspection: Yes normal to inspection General: Yes no CVA tenderness Back/Spine/Pelvis Back: no CVA tenderness Skin General skin exam: no rashes or lesions noted Neuro General: patient oriented x3 Extrem General: Yes normal to inspection Psych Appearance: grossly normal and well kempt Mental Status: mental status grossly normal Speech and movement: Normal speech and movement present and Clear speech present Affect: normal affect Attitude: cooperative Thought process: Normal thought process present Thought content: Normal thought content present Insight: Fair insight present (Psych) Judgement: Fair judgement present (Psych) Results AMB Urinalysis, Automated UA Leukoctes 0 Jenny/uL Last Edit by ALLY Skelton on 05/20/25 16:03 UA Nitrite Negative Last Edit by ALLY Skelton on 05/20/25 16:03 UA Urobilinogen 0.2 mg/dL Last Edit by ALLY Skelton on 05/20/25 16:03 UA Protein 0 mg/dL Last Edit by ALLY Skelton on 05/20/25 16:03 UA pH 7.0 Last Edit by ALLY Skelton on 05/20/25 16:03 UA Blood 200 Ben/uL Last Edit by ALLY Skelton on 05/20/25 16:03 UA Specific Embarrass 1.010 Last Edit by ALLY Skelton on 05/20/25 16:03 UA Ketone Negative Last Edit by ALLY Skelton on 05/20/25 16:03 UA Bilirubin 0 mg/dL Last Edit by Carlos Alexander CCM on 05/20/25 16:03 UA Glucose 0 mg/dL Last Edit by ALLY Skelton on 05/20/25 16:03 Results Reviewed Results Reviewed: Laboratory Last Values Urine pH (Auto) 7.0 05/20/25 16:02 Specific Embarrass (Auto) 1.010 05/20/25 16:02 Urine Protein (Auto) 0 mg/dL 05/20/25 16:02 Glucose (UA)(Auto) 0 mg/dL 05/20/25 16:02 Urine Ketones (Auto) Negative 05/20/25 16:02 Urine Blood (Auto) 200 Ben/uL 05/20/25 16:02 Urine Nitrite (Auto) Negative 05/20/25 16:02 Urine Bilirubin (Auto) 0 mg/dL 05/20/25 16:02 Urine Urobilinogen (Auto) 0.2 mg/dL 05/20/25 16:02 Leukocyte Esterase (Auto) 0 Jenny/uL 05/20/25 16:02 Date of Service: 11/10/24 Procedure(s): US renal BI Findings: Right kidney normal size and echotexture, 11.6 cm length. Left kidney normal size and echotexture, 10.8 cm length. There are 2 small calculi within the lower pole of the right kidney, each measuring 3 mm in greatest dimension. There are small parenchymal or vascular calcifications within the left kidney. No collecting system dilatation of either kidney. Normal color Doppler. IMPRESSION: 1. Two small nonobstructive calculi within the right kidney. Assessment & Plan Assessment & Plan (1) Kidney calculi: Code(s): N20.0 - Calculus of kidney Category: Medical (2) Flank pain: Code(s): R10.9 - Unspecified abdominal pain Category: Medical Plan In office urinalysis results reviewed with the patient today; as noted above. Most recent renal ultrasound results reviewed with the patient today; as noted above. Will obtain CT KUB for further assessment evaluation. We discussed worsening symptoms. Continue Flomax. Continue vitamin B6 as discussed and prescribed. We discussed the importance of adequate hydration relation to nephrolithiasis as well as overall health and well-being. Continue adding 1 oz of lemon juice to water daily. We did discussed further metabolic workup with [facility] and labs. All questions were answered. Follow-up in 1-2 weeks with imaging to be completed prior; or sooner with any issues, concerns, and or questions. Orders: Orders CT kidney stone Today N20.0 - Calculus of kidney, R10.9 - Unspecified abdominal pain AMB Urinalysis Automated Today Z13.9 - Encounter for screening, unspecified Urine Cytology Today R31.29 - Other microscopic hematuria Patient Instructions: The patient had an opportunity to ask questions regarding the treatment plan. All questions were answered. Physical exam, labs, and imaging were discussed and reviewed in detail. As well as risks, benefits, and discussion of treatment choices. No major barriers to understanding were identified. The patient expressed understanding and agreement with the above treatment plan. The patient was made aware they should contact our office by phone for worsening of their current condition, the appearance of new symptoms, or with any questions or concerns. Compliance is encouraged with any medications and follow up testing that is ordered. It is a privilege to be allowed the opportunity to participate in? your urological care.? Again, if you have any questions or concerns If you have any questions or concerns please do not hesitate to contact me. The office is [phone]. This note is constructed using voice recognition software. While every effort has been made to ensure accuracy supervisor grower errors may have been included. Yours sincerely, MARK Mario Coding Level of Care Code Est Pt Level 3 (92045) Complex EM visit Add On G2211 Diagnoses Kidney calculi N20.0 Flank pain R10.9
--- OUTSIDE RECORDS SUMMARY | 2025-05-20 18:18 | XMS_ITS | Encounter Summary ---
Author Organization [employer] Address [address] [facility] 7t [place] [address] Care Team Providers Care Elevator Constructor Electric Name Role Phone Elana Rdz MD Primary Care Pro vider Encounter Details Date Type Department Care Team ([facility] st Contact Info) Description 12/19/2023 Orders Only [facility] MEDICINE [address] [place] [address] ProviderIsael MD Social History Tobacco Use Types [...] as of this encounter Plan of Treatment Not on file documented as of this encounter Procedures Procedure Name Priority Date/Time Associated Diagnosis Comments HM COLONOSCOPY Routine 12/06/2017 8:04 AM EDT HM COLONOSCOPY Routine 02/20/2013 8:02 AM EDT documented in this encounter Results * Hm Colonoscopy (12/06/2017 8:04 AM EDT) us Historical Provider HEALTH MAINTENANCE Final Result * Colonoscopy (02/20/2013 8:02 AM EDT) us Historical Provider HEALTH MAINTENANCE Final Result documented in this encounter Visit Diagnoses Not on filedocumented in this encounter Additional Health Concerns Assessment Noted Time PHQ-9 Depression Total Score: 0 08/29/20 23 2:18 PM EST documented as of this encounter Care Teams Elevator Constructor Electric Relationship Specialty Start Date End Date Elana Rdz MD [address] [place] [address] PCP - General Internal Medicine 05/24/23 documented as of this encounter
--- OUTSIDE RECORDS SUMMARY | 2025-05-20 18:18 | XMS_ITS | Encounter Summary ---
Author Organization [employer] Address [address] [place] [address] Care Team Providers Care Draw Operator Name Role Phone aMyda Valerio [facility] Primary Care Provider [phone] Elana Rdz MD Primary Care Pro vider Encounter Details Date Type Department Care Team (Latest Contact Info) Description 04/08/2019 Abstract [facility] CONVERSIONS Dental, Provider, DDS Social History [...] on file documented as of this encounter Visit Diagnoses Not on filedocumented in this encounter Care Teams Draw Operator Relationship Specialty Start Date End Date Mayda Valerio FNP [address] [place] [address] PCP - General Family Medicine 05/08/22 05/23/23 Elana Rdz MD [address] [place] [address] PCP - General Internal Medicine 05/24/23 documented as of this encounter
--- OUTSIDE RECORDS SUMMARY | 2025-05-20 18:18 | XMS_ITS | Encounter Summary ---
Author Organization [employer] Address [address] [place] [address] [place] [address] Care Team Providers Care Reliability Specialist Name Role Phone Elana Rdz MD Primary Care Pro vider Reason for Visit * Reason Onset Date Comments change referral 11/03/2024 Encounter Details Date Type Department Care Team ([facility] st Contact Info) Description 11/03/2024 Telephone [facility] MEDICINE [address] [place], [place] [phone] Elana Rdz MD [address] [place] [address] change referral Social History Tobacco Use Types [...] EST Tc from pt stating called to program director substance abuse to make an appointment but it is completely full, pt is requesting to be referred to another facility that is near [place], [place]. Any questions contact pt [phone] [place] documented in this encounter Plan of Treatment Not on file documented as of this encounter Visit Diagnoses Not on filedocumented in this encounter Additional Health Concerns Assessment Noted Time PHQ-9 Depression Total Score: 0 08/29/20 2:18 PM EST documented as of this encounter Care Teams Reliability Specialist Relationship Specialty Start Date End Date Elana Rdz MD [address] [place] [address] PCP - General Internal Medicine 05/24/23 documented as of this encounter
--- OUTSIDE RECORDS SUMMARY | 2025-05-20 18:18 | XMS_ITS | Encounter Summary ---
Author Organization [employer] Address [address] [place] [phone] Care Team Providers Care Consumer Banker Name Role Phone Elana Rdz MD Primary Care Pro vider Reason for Visit * Reason Onset Date Comments pre-op 07/17/2023 Encounter Details Date Type Department Care Team ([facility] st Contact Info) Description 07/17/2023 Telephone [facility] [address] [place], [place] [phone] Elana Rdz MD [address] [place] [address] pre-op Social History Tobacco Use Types Packs/Day [...] - 07/17/2023 4:05 PM EST Tc from [facility] [place] requesting a pre-op Location[facility], [address] [place] [address] ext [phone] Procedure: vitrectomy of left eye [...] documented as of this encounter Care Teams Consumer Banker Relationship Specialty Start Date End Date Elana Rdz MD [address] [place] [phone] PCP - General Internal Medicine 05/24/23 documented as of this encounter
--- OUTSIDE RECORDS SUMMARY | 2025-05-20 18:18 | XMS_ITS | Clinical Summary ---
Author Organization [employer] Address [address] [place] [address] 7 [place] [address] Care Team Providers Care Tab Cutter Name Role Phone Elana Rdz MD Primary Care Pro vider Allergies Active Allergy Reactions Criticality Noted Date Comments Gentamicin 10/28/2010 Other reaction(s): unspecified Sulfamethoxazole 10/28/2010 Other reaction(s): unspecified Sulfamethoxazole-Trimethoprim 2022 Trimethoprim 10/28/2010 Other reaction(s): unspecified Medications Acetaminophen Extra Strength 500 MG tablet Take 500 mg by mouth every 6 (six) hours if needed. 2 Active brimonidine (AlphaGAN P) 0.2 % ophthalmic solution INSTILL 1 DROP IN THE LEFT EYE TWICE DAILY 3 Active dorzolamide (Trusopt) 2 % ophthalmic solution INSTILL 1 DROP INTO LEFT EYE TWICE A DAY 3 Active ketorolac (Acular) 0.5 % ophthalmic solution APPLY 1 DROP IN AFFECTED EYE(S) THREE TIMES DAILY DIRECTED. START 2 DAYS BEFORE SURGERY 3 Active ondansetron (Zofran) 4 MG tablet Take [...] 4 Active omeprazole (PriLOSEC) [address] capsuleIndicatio ns:Dyspepsia TAKE 1 CAPSULE BY MOUTH EVERY DAY BEFORE BREAKFAST 90 capsule 4 Active dorzolamide-cleve lol (Cosopt) 2-0.5 % ophthalmic solution INSTILL 1 DROP IN THE LEFT EYE TWICE DAILY 4 Active ofloxacin (Ocuflox) 0.3 % ophthalmic solution PLACE 1 DROP IN THE LEFT EYE FOUR TIMES DAILY 4 Active prednisoLONE acetate (Pred-Forte) 1 % ophthalmic suspension INSTILL 1 DROP IN THE LEFT EYE EVERY 2 HOURS WHILE AWAKE 4 Active albuterol (2.5 MG/3ML) 0.083% nebulizer solutionIndicati ons:Mild intermittent asthma, unspecified whether complicated,Prod uctive cough Take 3 mL (2.5 mg) by nebulization every 6 (six) hours if needed for wheezing. 90 mL 6 5 Active latanoprost (Xalatan) 0.005 % ophthalmic solution PLACE 1 DROP IN THE LEFT EYE EVERY NIGHT AT BEDTIME 5 Active omega-3 (Fish Oil) 1000 MG capsule Take 1 capsule (1,000 mg) by mouth at noon and 1 capsule (1,000 mg) in the evening. 60 capsule 2 5 Active Active Problems Problem Noted Date Diagnosed Date Other specified glaucoma 12/09/2024 Neuropathic pain of [...] Problem Noted Date Diagnosed Date Resolved Date Cough 12/09/2024 03/04/2025 Family history of cancer 08/29/202309/2023 Dizziness 04/19/2018 12/08/2022 Encounters Date Type Department Care Team Description 03/04/2025 3:00 PM EDT Office Visit [facility] [address] [place] [phone] Elana Rdz MD Hyperlipidemia, unspecified hyperlipidemia type (Primary Dx); Transaminitis; Health care maintenance 03/04/2025 Travel 03/03/2025 Telephone [facility] [address] [place] [phone] Elana Rdz MD CHART PREP 02/27/2025 Results Follow-Up [facility] [address] [place] [phone] Elana Rdz MD CBC, Chlamydia/N. Gonorrhoeae RNA, TMA, Urogenitial, Comprehensive Metabolic Panel, Additional followed-up results: 4 from Last 3 Months Immunizations Immunization Administration Dates Next Due Hep B, adult 07/17/1996,02/21/1996,01/16/1996 INFLUENZA INJECTABLE QUADRIV ALANT CCIIV4 MDCK Multi-dose vial 06/21/2019 Influenza Injectable Quadriv alant Preservative Free IIV4 MDCK 06/08/2018,06/30/2017 Influenza Whole 05/24/2009 Influenza injectable quadriv alent preservative free 06/25/2022,06/26/2021,06/10/2020,05/08,06/02/2016 Influenza, IIV3, injectable 06/02/2010 Influenza, Injectable, MDCK, preservative free 06/15/2024 Influenza, Split (incl. bernardo fied surface antigen) 06/24/2013 MMR 02/11/2009 Novel Kxsbputim-[id number], all formulations 10/04/2009 Pneumococcal Polysaccharide PPSV23 07/16/2008 [...] Date Recorded Patient Health Questionnaire-9 Score 0 03/04/2025 Patient Health Questionnaire-9 Score 0 03/04/2025 Last PHQ-9: Questionnaire Data Not on file 0 03/04/2025 Housing Stability Answer Date Recorded What is [...] Date Recorded Patient Health Questionnaire-2 Score 0 03/04/2025 Internet Access Answer Date Recorded Internet Access [...] Sign Reading Time Taken Comments Blood Pressure 118/72 03/04/2025 3:35 PM EDT Pulse 75 03/04/2025 3:35 PM EDT Temperature 36.4 C (97.5 F) 03/04/2025 3:35 PM EDT Respiratory Rate 20 03/04/2025 3:35 PM EDT Oxygen Saturation 97% 03/04/2025 3:35 PM EDT Inhaled Oxygen Concentration - - Weight 69.6 kg (153 lb 6.4 oz) 03/04/2025 3:35 P M EDT Height 167.6 cm (5' 6 ) 03/04/2025 3:35 PM EDT Body Mass Index 24.76 03/04/2025 3:35 PM EDT Plan of Treatment Health Maintenance Due Date Last Done Comments CT Colonography 1960 Dental Prophylaxis 1960 Dental X-Ray: Full Mouth 1960 FIT DNA/Cologuard 1960 FIT 1960 FOBT 1960 Sigmoidoscopy 1960 Pneumococcal Vaccine: 50+ Years (2 of 2 - PCV) 07/16/2009 07/16/2008 RSV Patients and Patients Aged 60 years or older (1 - Risk 60-74 years 1-dose series) 2022 Dental Oral Exam 02/13/2025 08/14/2024 COVID-19 Vaccine ( season) 2025 10/14/2021, 01/18/2021, 12/21/2020 Influenza Vaccine (#1) 2025 , 06/25/2022, 06/26/2021, Additional history exists Dental X-Ray: Bitewings 08/15/2025 08/14/20, 11/22/2023, 07/25/2023, Additional history exists SDOH Screening 12/01/2025 12/01/2024 Alcohol/Substance Use Screening 03/04/2026 03/04/2025 Depression Screening 03/04/2026 03/04/2025, 03/04/20 Disability Screening 03/04/2026 03/04/2025 Tobacco Screening 03/04/2026 03/04/2025 Mammogram 12/16/2026 12/16/2024, 11/08, 10/29/2021 Colonoscopy 12/07/2027 12/06/2017, 02/20/2013 Colorectal Cancer Screening 12/07/2027 Cervical Cancer Screening 10/22/2028 HPV/Cotest 10/22/2028 10/22/2023, 01/02/2019 Pap Smear 10/22/2028 10/22/2023 DTaP/Tdap/Td Vaccines (3 - Td or Tdap) 08/29/2033 08/29/2023, 09/19/2012, 11/08/1992 Hepatitis B Vaccines Completed 07/17/1996, 02/21/1996, 01/16/1996 Zoster Vaccines Completed 08/05/2022, 01/30/2022 HIV Screening Completed 02/27/2025, 08/11, 12/05/2021 Hepatitis C Screening Completed 02/27/2025, 023 HIB Vaccines Aged Out No longer eligi [...] Procedure Name Priority Date/Time Associated Diagnosis Comments VITAMIN B12/FOLATE, SERUM PANEL Routine 02/27/2025 8:54 AM EDT Annual physical exam TSH W/REFLEX TO FT4 Routine 02/27/2025 8:54 AM EDT Annual physical exam SYPHILIS SCREEN Routine 02/27/2025 8:54 AM EDT Annual physical exam LIPID PANEL, STANDARD Routine 02/27/2025 8:54 AM EDT Annual physical exam HIV 1/2 ANTIGEN/ANTIBODY, FOURTH GENERATION W/RFL Routine 02/27/2025 8:54 AM EDT Annual physical exam HEPATITIS C AB W/REFL TO HCV RNA, QN, PCR Routine 02/27/2025 8:54 AM EDT Annual physical exam HEMOGLOBIN A1C Routine 02/27/2025 8:54 AM EDT Annual physical exam COMPREHENSIVE METABOLIC PANEL Routine 02/27/2025 8:54 AM EDT Annual physical exam CBC Routine 02/27/2025 8:54 AM EDT Annual physical exam CHLAMYDIA/N. GONORRHOEAE RNA, TMA, UROGENITAL Routine 02/27/2025 8:54 AM EDT Annual physical exam BI MAMMOGRAM SCREENING TOMOSYNTHESIS BILATERAL Routine 12/16/2024 3:00 PM EDT Breast cancer screening by mammogram BITEWINGS - 4 RADIOGRAPHIC IMAGES Routine 08/14/2024 3:00 PM EST PERIODIC ORAL EVALUATION - ESTABLISHED PATIENT Routine 08/14/2024 3:00 PM EST HPV MRNA E6/E7 REFLEX TO HPV 16, 18/45 Routine 10/22/2023 11:11 AM EST PAP SMEAR Routine 10/22/2023 11:11 AM EST Cervical cancer screening HM COLONOSCOPY Routine 12/06/2017 8:04 AM EDT from Last 3 Months or Most Recently Relevant to Health Maintenance Results * Syphilis Screen (02/27/2025 8:54 AM EDT) Syphilis Screen Nonreactive Nonreactive [facility] Blood 02/27/2025 8:54 AM EDT 02/27/2025 11:31 AM EDT Elana Mcgowan MD LAB BLOOD ORDERAB LES Final Result [facility] [address] [place] [phone] * Vitamin B12 (Cobalamin) and Folate Panel, Serum (02/27/2025 8:54 AM EDT) Vitamin B12 250 200 - 900 pg/mL [facility] Comment:NORMAL 200-900 PG/ML INDETERMINATE 160-199 PG/ML DEFICIENT < 160 PG/ML Folate 11.4 > or = 4.0 ng/mL [facility] Comment:Reference Values:> o r = 4.0 ng/mL< 4.0 ng/mL suggests folate deficiency Methotrexate, aminopterin and folinic acid(leucovorin) are chemotherapeutic agents whose molecularstructures are similar to folate; therefore, the Architectfolate assay cannot be used for patients using these drugs. Blood 02/27/2025 8:54 AM EDT 02/27/2025 11:31 AM EDT us Elana Mcgowan MD LAB BLOOD ORDERAB LES Final Result Performing Organization Address [facility]/ZIP Co de Phone Number [facility] [address] [place] [phone] * TSH with Reflex to Free T4 (02/27/2025 8:54 AM EDT) TSH reflex Free T4 2.18 0.32 - 4.0 uIU/mL [facility] Blood 02/27/2025 8:54 AM EDT 02/27/2025 11:31 AM EDT Elana Mcgowan MD LAB BLOOD ORDERAB LES Final Result Performing Organization Address [facility] Co de Phone Number [facility] [address] [place] [phone] * Hepatitis C Antibody with Reflex to HCV, RNA, Quantitative, Real-Time PCR (02/27/2025 8:54 AM EDT) Hepatitis C Antibody Nonreactive Nonreactive [facility] Comment:Antibodies to HCV no t detected; does not exclude early acuteHCV infection. Blood Venous blood specimen / Unknown 02/27/2025 8:54 AM EDT 02/27/2025 11:31 AM EDT Elana Mcgowan MD LAB BLOOD ORDERAB LES Final Result Performing Organization Address [facility] Co de Phone Number [facility] [address] [place] [phone] * Chlamydia/N. Gonorrhoeae RNA, TMA, Urogenitial (02/27/2025 8:54 AM EDT) [facility] CT PCR NOT DETECTED Not Detect. [facility] Comment:A not detected test result does not exclude the possibilityof infection because test results can be affected byimproper specimen collection, concurrent antibiotic therapy,or the number of organisms in the specimen which may bebelow the sensitivity of the test. As with many diagnostictests, results from the Xpert CT/NG assay should beinterpreted in conjunction with other laboratory andclinical data available to the clinician.Xpert CT/NG performance has not been evaluated in patientsless than 14 years of age. The assay should not be used forthe evaluationof suspected sexual abuse or for other medico-legalindications. Additional testing is recommended in anycircumstance when false positive or false negative resultscould lead to adverse medical, social or psychologicalconsequences. NG PCR NOT DETECTED Not Detect. [facility] Comment:A not detected test result does not exclude the possibilityof infection because test results can be affected byimproper specimen collection, concurrent antibiotic therapy,or the number of organisms in the specimen which may bebelow the sensitivity of the test. As with many diagnostictests, results from the Xpert CT/NG assay should beinterpreted in conjunction with other laboratory andclinical data available to the clinician.Xpert CT/NG performance has not been evaluated in patientsless than 14 years of age. The assay should not be used forthe evaluationof suspected sexual abuse or for other medico-legalindications. Additional testing is recommended in anycircumstance when false positive or false negative resultscould lead to adverse medical, social or psychologicalconsequences. Urine (Urine, Random) 02/27/2025 8:54 AM EDT 02/27/2025 11:25 AM EDT Narrative [facility] - 02/27/2025 1:04 PM EDT Urine Elana Mcgowan MD LAB MICROBIOLOGY - GENERAL ORDERABLES Final Result [facility] [address] [place] [phone] * HIV-1/2 Antigen and Antibodies, Fourth Generation, with Reflexes (02/27/2025 8:54 AM EDT) HIV AB/AG Nonreactive Nonreactive [facility] Comment:HIV-1 p24 Ag and/or HIV-1/HIV-2 Ab not detected.A test result that is nonreactive does not exclude thepossibility of exposure to or infection with HIV-1 and/orHIV-2. Nonreactive results in this assay for individualswith prior exposure to HIV-1 and/or HIV-2 may be due toantigen and antibody levels that are below the limit ofdetection of this assay.The MartMania HIV Ag/Ab Combo assay result andsupplemental assay results should be interpreted inconjunction with the patient's clinical presentation,history and other laboratory results. If the results areinconsistent with clinical evidence, additional testing issuggested to confirm the result. Blood Venous blood specimen / Unknown 02/27/2025 8:54 AM EDT 02/27/2025 11:31 AM EDT us Elana Mcgowan MD LAB BLOOD ORDERAB LES Final Result Performing Organization Address City/[facility]/ZIP Co de Phone Number [facility] [address] [place] [phone] * CBC (02/27/2025 8:54 AM EDT) White Blood Count 6.0 4.8 - 10.8 X10*3/uL [facility] Red Blood Count 4.68 4.20 - 5.50 X10*6/uL [facility] Hemoglobin 14.1 12.0 - 16.0 g/dl [facility] Hematocrit 41.8 37.0 - 47.0 % [facility] Mean Corpuscular Volume 89.3 80.0 - 98.0 fL [facility] Mean Corpuscular Hemoglobin 30.1 27.0 - 33.0 pg [facility] Mean Corpuscular HGB Conc 33.7 31.0 - 35.0 g/dl [facility] Red Cell Distribution Width 12.4 11.0 - 16.0 % [facility] Platelet Count 232 160 - 400 X10*3/uL [facility] Mean Platelet Volume 11.2 9.4 - 12.3 fL [facility] NRBC Pct Auto 0.0 0.0 - 0.2 /100WBC [facility] NRBC Abs Auto 0.000 0.0 - 0.012 X10*3/uL [facility] Blood Venous blood specimen / Unknown 02/27/2025 8:54 AM EDT 02/27/2025 11:28 AM EDT us Elana Mcgowan MD LAB BLOOD ORDERAB LES Final Result Performing Organization Address City/[facility]/ZIP Co de Phone Number [facility] [address] [place] [phone] * Hemoglobin A1c (02/27/2025 8:54 AM EDT) Hemoglobin A1c 5.3 <6.0 % [facility] Comment:Hemoglobin A1C Refer ence Range Adults: 4.8 - 6.0 % Non diabetic: < 6.0 % Goal: < 7.0 %Additional Action Suggested: > 8.0 %Note: Hemoglobin A1c results are invalid for patients with abnormal amounts of HbF. Blood transfusions may impact the HbA1c concentration in the patient sample. Estimated Average Glucose 105 mg/dL [facility] Comment:eAG = Estimated ave rage glucose which is %A1C expressed asaverage glucose, using the formula of the Z5S-HoejnlaYiasmih Glucose study (ADAG), Diabetes Care, Vol.31,#8,Apr. 2007 Blood Venous blood specimen / Unknown 02/27/2025 8:54 AM EDT 02/27/2025 11:28 AM EDT us Elana Mcgowan MD LAB BLOOD ORDERAB LES Final Result [facility] [address] [place] [phone] * (ABNORMAL) Lipid Panel, Standard (02/27/2025 8:54 AM EDT) Triglycerides 137 <150 mg/dL [facility] Comment:Desirable Triglyceri de: less than 150 mg/dLBorderline High Triglyceride 150-199 mg/dLHigh Triglyceride: 200-499 mg/dLVery High Triglyceride: greater than or equal to 5OO mg/dL Cholesterol 238(H) <200 mg/dL [facility] Comment:Desirable Cholestero l: less than 200 mg/dLBorderline High Cholesterol: 200-239 mg/dLHigh Cholesterol: greater than 239 mg/dL LDL Cholesterol Calculated 160(H) <100 mg/dL [facility] Comment:Desirable LDL: less than 100 mg/dLNear Optimal/Above Optimal LDL: 110- 129 mg/dLBorderline High LDL: 130-159 mg/dLHigh LDL: 160-189 mg/dLVery High LDL: greater than or equal to 190 mg/dL HDL Cholesterol 51 >40 mg/dL [facility] Comment:Desirable HDL: great er than 40 mg/dL Note: This HDL assay may give artificially low results in patients with liver disease. Blood Venous blood specimen / Unknown 02/27/2025 8:54 AM EDT 02/27/2025 11:31 AM EDT us Elana Mcgowan MD LAB BLOOD ORDERAB LES Final Result [facility] [address] [place] [phone] * (ABNORMAL) Comprehensive Metabolic Panel (02/27/2025 8:54 AM EDT) Sodium 140 135 - 145 mmol/L [facility] Potassium 4.1 3.3 - 5.1 mmol/L [facility] Chloride 108 96 - 108 mmol/L [facility] Carbon Dioxide 26 22 - 29 mmol/L [facility] Anion Gap 10(L) 12 - 20 [facility] Urea Nitrogen (BUN) 15 9 - 16 mg/dL [facility] Creatinine, Serum 0.81 0.5 - 1.4 mg/dL [facility] Estimated Glomerular Filt Rate >60 [facility] Comment:Chronic Kidney Disea se: Estimated GFR < 60 mL/min/1.75m3Hfjuwd Kidney Disease: Estimated GFR < 15 mL/min/1.73m2 Glucose 85 60 - 115 mg/dL [facility] Calcium 9.3 8.4 - 10.2 mg/dL [facility] Bilirubin, Total 0.8 0.0 - 1.0 mg/dL [facility] Aspartate Amino Transferase 27 5 - 31 U/L [facility] Alanine Aminotransferase 30 0 - 31 U/L [facility] Total Protein 7.3 6.5 - 8.0 g/dL [facility] Albumin Level 4.5 3.5 - 5.0 g/dL [facility] Alkaline Phosphatase 70 39 - 117 U/L [facility] Blood Venous blood specimen / Unknown 02/27/2025 8:54 AM EDT 02/27/2025 11:31 AM EDT us Elana Mcgowan MD LAB BLOOD ORDERAB LES Final Result [facility] [address] [place] [phone] * BI Mammogram Screening Tomosynthesis Bilateral (12/16/2024 3:00 PM EDT) Anatomical Region Laterality Modality Breast Bilateral Mammography 12/16/2024 3:00 PM EDT Narrative 12/22/2024 5:27 PM EDT [address] [place] [address] Mammography Report Signed Patient: Erendira Quintanilla I MR#: [id number] : 1960 Acct:[id number] Age/Sex: 64 / F ADM Date: 12/16/24 Loc: HO.MAMMO Attending Dr: Elana Mcgowan MD Ordering Physician: HARISH VALENZUELA CNM Results: 2 Benign Findings Date of Service: 12/16/24 Follow Up: [facility] M[facility] Procedure(s): MM tomosynthesis screening BI Accession Number(s): [id number] cc: Elana Rdz MD; HARISH VALENZUELA CNM [...] 12/22/24 1724 DD/ 1500 TD/TT: 12/16/24 1510 Kettle Tender: Procedure Note Donotuseinterpreter, Image - 12/22/2024 [facility] [address] [place] [address] Mammography Report Signed Patient: Erendira Quintanilla IMR#: [id number] : 1960cct:[id number] Age/Sex: 64 / FADM Date: 12/16/24 Loc: HO.MAMMO Attending Dr: Elana Mcgowan MD Ordering Physician: HARISH VALENZUELAesults: 2 Benign Findings Date of Service: 12/16/24Follow Up: 1 Year From [facility] Mammogram Procedure(s): MM tomosynthesis screening BI Accession Number(s): [id number] cc: Elana Rdz MD; HARISH VALENZUELA CNM [...] 12/22/24 1724 DD/ 1500 TD/TT: 12/16/24 1510 Kettle Tender: Harish Valenzuela CNM IM BI PROCEDURES Edited Result - Final * HPV mRNA E6/E7 w/Reflex to HPV Genotypes 16, 18/45 (10/22/2023 11:11 AM EST) HPV nRNA E6/E7 Not Detected Not Detected [facility] Comment:Methodology: Transcr iption-Mediated AmplificationThis assay detects E6/E7 viral messenger RNA (mRNA) from 14high-risk HPV types (16,18,31,33,35,39,45,51,52,56,58,59,66,68).Cervical sources are required for HPV testing.If a vaginal source from a patient who has had atotal hysterectomy with removal of cervix wassubmitted, please contact the testing laboratoryfor alternative testing options.For additional information, please refer tohttp://[email or web address] Secure/faq/GET164r5(This link if provided for information/educational purposes only.)THIS TEST WAS PERFORMED AT:[employer] [place] [phone] COYLE MD HPV mRNA E6/E7 [facility] HPV 16 RNA [facility] HPV 18/45 RNA [facility] 10/22/2023 11:1 1 AM EST 10/23/2023 8:00 AM EST Harish Valenzuela CNM LAB CYTOLOGY ORDERABLES F inal Result [facility] [address] [place] [phone] * Pap Smear (10/22/2023 11:11 AM EST) Swab Cervix uteri structure / Unknown 10/22/2023 11:11 AM EST 10/23/2023 8:00 AM EST Narrative [facility] - 11/06/2023 1:21 PM EST ----- ------- Name: DwightErendira berkowitz I Age/Sex: 63/F : 1960 Unit#: [id number] Attend Dr: HARISH VALENZUELA CNM Re10/22/23 Status: DEP REF Location: [facility] Disch: ----- ------- SPEC : [id number] RECD: 10/23/23 STATUS: MEETA AGUDELO NUM: [id number] MATTHEW: 10/22/23-[address]: HARISH VALENZUELA CNM ENTERED: 10/23/23 SP TYPE: Pap Smr OT DR: ORDERED: Pap Smear Interpretation Satisfactory for evaluation. Mild inflammation. Negative for intraepithelial lesion or malignancy. HPV mRNA E6/E7: NOT DETECTED This assay detects E6/E7 viral messenger RNA (mRNA) from 14 high-risk HPV types (16, 18, 31, 33, 35, 39, 45, 51, 52, 56, 58, 59, 66, 68) HPV testing performed by [employer], [place], [place]. See reference laboratory portion of the EMR for entire report. Clinical Information LMP: Postmenopausal Previous PAP test: Unknown date/findings Material Received ThinPrep-Cervical ----- ------- Signed (signature on file) GALILEO Hutchins (ASCP) 11/06/23 1321 ----- ------- END OF REPORT Harish MOORE LAB CYTOLOGY ORDERABLES F inal Result [facility] [address] [place] [phone] * Hm Colonoscopy (12/06/2017 8:04 AM EDT) Historical Provider HEALTH MAINTENANCE Final Result from Last 3 Months or Most Recently Relevant to Health Maintenance Insurance [facility] PARTIAL (MEDICAID) Care Teams Tab Cutter Relationship Specialty Start Date End Date Jackson Juan M, Maryan, MD [address] [place] [phone] PCP - General Internal Medicine 05/24/23
--- OUTSIDE RECORDS SUMMARY | 2025-05-20 18:18 | XMS_ITS | Encounter Summary ---
Author Organization [employer] Address [address] [place] [address] [address] [place] [address] Care Team Providers Care Diesel Engine I Pipe Fitter Name Role Phone Mayda Valerio [facility] Primary Care Provider [phone] Elana Rdz MD Primary Care Pro vider Encounter Details Date Type Department Care Team (Latest Contact Info) Description 07/27/2021 Abstract [facility] CONVERSIONS Dental, Provider, DDS Social [...] on filedocumented in this encounter Care Teams Diesel Engine I Pipe Fitter Relationship Specialty Start Date End Date Mayda Valerio FNP [address] [place] [address] PCP - General Family Medicine 05/08/22 05/23/23 Elana Rdz MD [address] [place] [address] PCP - General Internal Medicine 05/24/23 documented as of this encounter
--- OUTSIDE RECORDS SUMMARY | 2025-05-20 18:18 | XMS_ITS | Encounter Summary ---
Author Organization [employer] Address [address] [place] [address] [place] [address] Care Team Providers Care Row Boss Hoeing Name Role Phone Elana Rdz MD Primary Care Pro vider Reason for Visit * Reason Onset Date Comments Referral 06/29/2023 Encounter Details Date Type Department Care Team ([facility] st Contact Info) Description 06/29/2023 Telephone [facility] MEDICINE [address] [place], [place] [phone] Elana Rdz MD [address] [place] [address] Referral Social History Tobacco Use Types Packs/Day [...] calling in regards to physical therapy in [place] requesting to be transferred to [facility] destination to home in [place]. Patient speaks afghan Please contact [phone] documented in this encounter Plan of Treatment Not on file documented as of this encounter Visit Diagnoses Not on filedocumented in this encounter Additional Health Concerns Assessment Noted Time PHQ-9 Depression Total Score: 0 12/09/19 9:56 AM EDT documented as of this encounter Care Teams Row Boss Hoeing Relationship Specialty Start Date End Date Elana Rdz MD [address] [place] [address] PCP - General Internal Medicine 05/24/23 documented as of this encounter
--- OUTSIDE RECORDS SUMMARY | 2025-05-20 18:18 | XMS_ITS | Clinical Summary ---
Author Organization [facility] ity Address [address] [place] [address] Care Team Providers Care Senior Analyst Market Intelligence Name Role Phone Unavailable Primary Care Provider [...] 2) 02/05/2012 Breast Cancer Screening 06/03/2020 06/03/2018 Depression Screening 09/10/2024 COVID-19 Vaccine (1 - 2023-2 5 season) 2025 Influenza Vaccine (#1) 2025 RSV Immunization Adult Patie nts (1 [...] Procedure Name Priority Date/Time Associated Diagnosis Comments [facility] SCREENING DIGITAL Routine 06/03/2018 8:36 AM EDT Encounter for screening mammogram for malignant neoplasm of breast from Last 3 Months or Most Recently Relevant to Health Maintenance Results * KAY SCREENING DIGITAL (06/03/2018 8:36 AM EDT) Anatomical Region Laterality Modality Mammography 05/29/2018 2:09 PM EDT Narrative 06/03/2018 8:[address] [facility] Diagnostic Imaging Department [address] [place] [address] Patient: ERENDIRA QUINTANILLA I /Age/Sex: 1960 - 58 - F Unit#: [id number] Location/Status: [facility] CLI Mnemonic/Ordering Site: [facility] Ordering Physician: DENZEL SAUCEDO NP Kay Screening Digital - 06/01/18 - 1038 EXAM: [facility] Screening Digital EXAM DATE AND TIME: 06/01/2018 10:38 AM HISTORY: Screening. Three maternal aunts had breast carcinoma. COMPARISON: 05/26/17, 05/20/16, 04/10/15, 04/04/14, 02/15/13 TECHNIQUE: CC and MLO views of both breasts were obtained using full field digital mammography. Bilateral digital breast tomosynthesis was performed in the MLO projection. Computer aided detection with the [employer] 7.2-H was employed. TISSUE DENSITY: c. The breasts are heterogeneously dense, which may obscure small masses. FINDINGS: No suspicious masses, grouped microcalcifications, or areas of architectural distortion are seen. There are scattered microcalcifications, unchanged from previous. The skin and vascularity are unremarkable. IMPRESSION: Stable mammographic appearance of the breasts. No evidence of malignancy is seen. A negative mammogram in the presence of a clinically suspicious palpable abnormality does not preclude the possibility of malignancy or alter the indications for biopsy. BI-RADS: Category 2: Benign RECOMMENDATION(S): 1: Routine screening mammogram BILATERAL in 1 year. 12523, 27454 3342F, 7025F Dictating Physician: RAMONA CAMEJO MD Electronically Signed by: RAMONA CAMEJO MD Dic Date/Time: 06/03/18834 Sign date/Time: 06/03/18835 Procedure Note Ramona Camejo MD - 08/29/2022 [facility] Diagnostic Imaging Department [address] [place] [address] Patient: ERENDIRA QUINTANILLA I /Age/Sex: 1960 - 58 - F Unit#: [id number] Location/Status: [facility] CLI Mnemonic/Ordering Site: [facility] Ordering Physician: DENZEL SAUCEDO BUTANE COMPRESSOR OPERATOR [facility] Screening Digital - 06/01/18 - 1038 EXAM: [facility] Screening Digital EXAM DATE AND TIME: 06/01/2018 10:38 AM HISTORY: Screening. Three maternal aunts had breast carcinoma. COMPARISON: 05/26/17, 05/20/16, 04/10/15, 04/04/14, 02/15/13 TECHNIQUE: CC and MLO views of both breasts were obtained using fullfield digital mammography. Bilateral digital breast tomosynthesis was performedin the MLO projection. Computer aided detection with the [employer] employed. TISSUE DENSITY: c. The breasts are [...] Routine screening mammogram BILATERAL in 1 year. 28700, 74807 3342F, 7025F Dictating Physician: RAMONA CAMEJO MD Electronically Signed by: RAMONA CAMEJO MD Dic Date/Time: 06/03/18 0835 Sign date/Time: 06/03/18 0836 Denzel Saucedo NP IMG BI PROCEDURES Final Result from Last 3 Months or Most Recently Relevant to Health Maintenance
--- OUTSIDE RECORDS SUMMARY | 2025-05-20 18:18 | XMS_ITS | Patient Health Record ---
Author Organization [facility] [place] Address [address] [place] [address] Care Team Providers Care Detective Captain Name Role Phone Elana Rdz Primary Care Provider Kit Salinas Unavailable [phone] Allergies Allergen (clinical drug ingredient) Drug/Non Drug Allergy documented on EMR Reaction Allergy Type Onset Date Status sulfamethoxazole / trimethoprim Bactrim DS Unknown Drug Allergy Active Reason For Referral No Information Medications Medication SIG (Take, Route, Frequency, Duration) Notes Start Date End Date Status Albuterol PRN Active Immunizations Vaccine Route Administration Date Status Comme nts Influenza Unknown 05/12/2024 Administered Social History Tobacco Use: Social History Observation Description Date Details (start date - stop date) Never Smoker NA - NA Tobacco use other than smoking: Question Answer Notes Are you an other tobacco user? No Tobacco Control (Standard) Question Answer Notes Tobacco use: Nonsmoker Additional Findings: Tobacco non-user Current no nsmoker AUDIT-C (Standard) Question Answer Notes Did you have a drink containing alcohol in the p ast year? 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) Neuritis of right foot (G57.91) Active confirmed Vital Signs Blood pressure diastolic 70 mm Hg 04/08/2025 Height 5 ft 6 in in 04/08/2025 Blood pressure systolic 130 mm Hg 04/08/2025 Weight 150 lbs 04/08/2025 BMI 24.21 kg/m2 04/08/2025 Encounters Encounter Location Date Provider Diagnosis [facility] [address] [address] 04/08/2025 Kit Radha Pain in right foot M79.671 ; Neuritis of right foot G57.91 and 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 [facility] [address] [address] 01/07/2025 Kit Garcia [facility] [address] [place] [address] 01/08/2025 Kit Radha Assessments Encounter Date Diagnosis (ICD Code) Assessment Notes Treatment Notes Treatment Clinical Notes Section Notes 04/08/2025 Pain in right foot (ICD-10 - M79.671) 04/08/2025 Neuritis of right foot (ICD-10 - G57.91) 04/08/2025 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
== END 2025-05-20 16:28 | disposition home or self-care (01) ==
LOC: HO.HUSH 15:20
PROVIDERS: PCP Student in an Organized Health Care Education/Training Program; Visit Provider Nurse Practitioner Family
DX: N20.0 Calculus of kidney (principal); R10.9 Unspecified abdominal pain; Z13.9 Encounter for screening, unspecified
CPT/HCPCS: 99213; G2211

== ENCOUNTER 2025-05-20 15:20 | Outpatient (REF) | payer OTHER, SELFPAY | END 2025-05-20 15:21 | disposition home or self-care (01) | LOC: HO.LAB 15:20 | PROVIDERS: PCP Student in an Organized Health Care Education/Training Program; Visit Provider Nurse Practitioner Family | DX: N20.0 Calculus of kidney (principal); R31.29 Other microscopic hematuria; Z13.89 Encounter for screening for other disorder | CPT/HCPCS: 81003; 88112 ==

== ENCOUNTER 2025-05-21 12:28 | Outpatient (REF) | payer OTHER, SELFPAY ==
--- OUTSIDE RECORDS SUMMARY | 2025-03-30 10:00 | XMS_ITS ---
Author Organization [facility] Address [address] [place] [address] Care Team Providers Care Harmonic Analyst Name Role Phone Elana Rdz Primary Care Provider Kit Salinas [phone] Encounters Encounter Location Date Provider [facility] [address] [facility] [address] [place] [address] 03/30/2025 Kit Garcia Plan Of Treatment No Information Progress Notes * Erendira QUINTANILLA IDOB:1959 (65 yo F)Acc No.[id number]:03/30/2025 Progress Notes Patient: Erendira CHOUDHURY I Provider: Kari Garcia DPM :1960 A ge:65 Y S ex:Female Date:03/30/2025 Address:[address] [place] [address], [address] Pcp:Elana Mcgowan Subjective: * Chief Complaints: [...] 03/30/2025 Generated for Printi ng/Faxing/eTransmitting on: 0 05/21/2025 04:43 PM EDT
--- NOTE | ~2025-05-21 | CT_ITS ---
EXAMINATION: CT ABDOMEN PELVIS WITHOUT IV CONTRAST HISTORY: N20.0 - Calculus of kidney COMPARISON: Comparison is made with the prior examination dated 06/30/2020. TECHNIQUE: CT scan of the abdomen and pelvis was performed without contrast using standard departmental protocol. Coronal and sagittal reformatted images were generated and reviewed. Oral contrast material was not administered per department protocol. This CT exam was performed with one or more of the following dose reduction techniques: automated exposure control, adjustment of the mA and/or kV according to patient size, use of iterative reconstruction technique. DLP: 352 mGy-cm FINDINGS: LOWER CHEST: The visualized lung bases are clear. There is no pleural effusion. CARDIOVASCULATURE: The heart is normal in size. There is no pericardial effusion. LIVER: The liver is normal in size and contour. The liver has an unremarkable unenhanced appearance. GALLBLADDER / BILE DUCTS: The gallbladder is unremarkable. There is no intra or extrahepatic biliary ductal dilatation. SPLEEN: The spleen is normal in size and has an unremarkable unenhanced appearance. PANCREAS: The pancreas has an unremarkable unenhanced appearance. ADRENAL GLANDS: Unremarkable. KIDNEYS/RETROPERITONEUM: There is moderate right hydronephrosis secondary to a 3 mm calculus at the UPJ. There are multiple tiny nonobstructing left renal calculi measuring up to 2 mm in size. There is no left hydronephrosis or hydroureter. LYMPH NODES: No retroperitoneal lymphadenopathy is identified in the abdomen or pelvis. VASCULATURE: The abdominal aorta is normal in caliber. MESENTERY/PERITONEUM: No free fluid. No masses. There is no free intraperitoneal gas. STOMACH: The stomach is collapsed, limiting evaluation. SMALL BOWEL: The small bowel is normal in caliber. COLON: There is a moderate amount of stool throughout the colon. APPENDIX: Normal. URINARY BLADDER/PELVIC ORGANS: The urinary bladder is collapsed, limiting evaluation. The uterus has an unremarkable unenhanced appearance. BONES / SOFT TISSUES: No suspicious bony or soft tissue abnormalities. CT/CT kidney stone IMPRESSION: Moderate right hydronephrosis secondary to a 3 mm UPJ calculus. Left nephrolithiasis as described. Electronically signed by: Roman Brand MD 05/21/2025 01:34 PM EDT
--- OUTSIDE RECORDS SUMMARY | 2025-05-21 16:43 | XMS_ITS | Encounter Summary ---
Author Organization [employer] Address [address] [place] [address] [place] [address] Care Team Providers Care Wire Winding Machine Tender Name Role Phone Elana Rdz MD Primary Care Pro vider Reason for Visit * Reason Onset Date Comments change referral 11/03/2024 Encounter Details Date Type Department Care Team ([facility] st Contact Info) Description 11/03/2024 Telephone [facility] MEDICINE [address] [place], [place] [phone] Elana Rdz MD [address] [place] [address] change referral Social History Tobacco Use Types [...] EST Tc from pt stating called to tester operator helper to make an appointment but it is completely full, pt is requesting to be referred to another facility that is near [place], [place]. Any questions contact pt [phone] Khmer documented in this encounter Plan of Treatment Not on file documented as of this encounter Visit Diagnoses Not on filedocumented in this encounter Additional Health Concerns Assessment Noted Time PHQ-9 Depression Total Score: 0 08/29/20 2:18 PM EST documented as of this encounter Care Teams Wire Winding Machine Tender Relationship Specialty Start Date End Date Elana Rdz MD [address] [place] [address] PCP - General Internal Medicine 05/24/23 documented as of this encounter
--- OUTSIDE RECORDS SUMMARY | 2025-05-21 16:43 | XMS_ITS | Encounter Summary ---
Author Organization [employer] Address [address] [facility] [address] [place] [address] Care Team Providers Care Fashion Editor Name Role Phone Elana Rdz MD Primary Care Pro vider Encounter Details Date Type Department Care Team (Late st Contact Info) Description 05/21/2025 Orders Only [facility] External Provider, [facility] Social History Tobacco Use Types Packs/Day Years [...] the past 12 months, has t he [employer], gas, oil or water company threatened to [...] Procedure Name Priority Date/Time Associated Diagnosis Comments CT RENAL FOR STONES Routine 05/21/2025 1 2:57 PM EDT documented in this encounter Results * CT RENAL FOR STONES (05/21/2025 12:57 PM EDT) Anatomical Region Laterality Modality Computed Tomogra phy 05/21/2025 12:5 7 PM EDT Narrative 05/21/2025 1:36 PM EDT [place] [address] CT Scan Report Signed Patient: Erendira Quintanilla I MR#: [id number] : 1960 Acct:[id number] Age/Sex: 65 / F ADM Date: 05/21/25 Loc: HO.CT Attending Dr: Megan FLORES Ordering Physician: Megan Solorio Date of Service: 05/21/25 Procedure(s): CT kidney stone Accession Number(s): [id number] cc: Megan Solorio; Elana Rdz MD Report Number: [id number]: Total DLP = 352.00 mGy-cm Reason for Exam: N20.0 - Calculus of kidney EXAMINATION: CT ABDOMEN PELVIS WITHOUT IV CONTRAST HISTORY: N20.0 - Calculus of kidney COMPARISON: Comparison is made with the prior examination dated 06/30/2020. TECHNIQUE: CT scan of the abdomen and pelvis was performed without contrast using standard departmental protocol. Coronal and sagittal reformatted images were generated and reviewed. Oral contrast material was not administered per department protocol. This CT exam was performed with one or more of the following dose reduction techniques: automated exposure control, adjustment of the mA and/or kV according to patient size, use of iterative reconstruction technique. DLP: 352 mGy-cm FINDINGS: LOWER CHEST: The visualized lung bases are clear. There is no pleural effusion. CARDIOVASCULATURE: The heart is normal in size. There is no pericardial effusion. LIVER: The liver is normal in size and contour. The liver has an unremarkable unenhanced appearance. GALLBLADDER / BILE DUCTS: The gallbladder is unremarkable. There is no intra or extrahepatic biliary ductal dilatation. SPLEEN: The spleen is normal in size and has an unremarkable unenhanced appearance. PANCREAS: The pancreas has an unremarkable unenhanced appearance. ADRENAL GLANDS: Unremarkable. KIDNEYS/RETROPERITONEUM: There is moderate right hydronephrosis secondary to a 3 mm calculus at the UPJ. There are multiple tiny nonobstructing left renal calculi measuring up to 2 mm in size. There is no left hydronephrosis or hydroureter. LYMPH NODES: No retroperitoneal lymphadenopathy is identified in the abdomen or pelvis. VASCULATURE: The abdominal aorta is normal in caliber. MESENTERY/PERITONEUM: No free fluid. No masses. There is no free intraperitoneal gas. STOMACH: The stomach is collapsed, limiting evaluation. SMALL BOWEL: The small bowel is normal in caliber. COLON: There is a moderate amount of stool throughout the colon. APPENDIX: Normal. URINARY BLADDER/PELVIC ORGANS: The urinary bladder is collapsed, limiting evaluation. The uterus has an unremarkable unenhanced appearance. BONES / SOFT TISSUES: No suspicious bony or soft tissue abnormalities. CT/CT kidney stone IMPRESSION: Moderate right hydronephrosis secondary to a 3 mm UPJ calculus. Left nephrolithiasis as described. Electronically signed by: Roman Brand MD 05/21/2025 01:34 PM EDT Dictated By: Roman Brand MD Signed By: <Electronically signed by Roman Brand MD in OV> 05/21/25 1334 DD/ 1257 TD/TT: 05/21/25 1326 Lithographic Plate Maker: Procedure Note Donotmargeinterpreter, Image - 05/21/[address] [address] [address] Scan Report Signed Patient: Erendira Quintanilla IMR#: [id number] : 2Acct:[id number] Age/Sex: 65 / FADM Date: 05/21/25 Loc: HO.CT Attending Dr: Megan FLORES Ordering Physician: Megan Solorio Date of Service: 05/21/25 Procedure(s): CT kidney stone Accession Number(s): [id number] cc: Megan Solorio; Elana Rdz MD Report Number: [id number]: Total DLP = 352.00 mGy-cm Reason for Exam: N20.0 - Calculus of kidney EXAMINATION: CT ABDOMEN PELVIS WITHOUT IV CONTRAST HISTORY: N20.0 - Calculus of kidney COMPARISON: Comparison is made with the prior examination dated 06/30/2020. TECHNIQUE: CT scan of the abdomen and pelvis was performed without contrast using standard departmental protocol. Coronal and sagittal reformatted images were generated and reviewed. Oral contrast material was not administered per department protocol. This CT exam was performed with one or more of the following dose reduction techniques: automated exposure control, adjustment of the mA and/or kV according to patient size, use of iterative reconstruction technique. DLP: 352 mGy-cm FINDINGS: LOWER CHEST: The visualized lung bases are clear. There is no pleural effusion. CARDIOVASCULATURE: The heart is normal in size. There is no pericardial effusion. LIVER: The liver is normal in size and contour. The liver has an unremarkable unenhanced appearance. GALLBLADDER / BILE DUCTS: The gallbladder is unremarkable. There is no intra or extrahepatic biliary ductal dilatation. SPLEEN: The spleen is normal in size and has an unremarkable unenhanced appearance. PANCREAS: The pancreas has an unremarkable unenhanced appearance. ADRENAL GLANDS: Unremarkable. KIDNEYS/RETROPERITONEUM: There is moderate right hydronephrosis secondary to a 3 mm calculus at the UPJ. There are multiple tiny nonobstructing left renal calculi measuring up to 2 mm in size. There is no left hydronephrosis or hydroureter. LYMPH NODES: No retroperitoneal lymphadenopathy is identified in the abdomen or pelvis. VASCULATURE: The abdominal aorta is normal in caliber. MESENTERY/PERITONEUM: No free fluid. No masses. There is no free intraperitoneal gas. STOMACH: The stomach is collapsed, limiting evaluation. SMALL BOWEL: The small bowel is normal in caliber. COLON: There is a moderate amount of stool throughout the colon. APPENDIX: Normal. URINARY BLADDER/PELVIC ORGANS: The urinary bladder is collapsed, limiting evaluation. The uterus has an unremarkable unenhanced appearance. BONES / SOFT TISSUES: No suspicious bony or soft tissue abnormalities. CT/CT kidney stone IMPRESSION: Moderate right hydronephrosis secondary to a 3 mm UPJ calculus. Left nephrolithiasis as described. Electronically signed by: Roman Brand MD 05/21/2025 01:34 PM EDT Dictated By: Roman Brand MD Signed By: <Electronically signed by Roman Brand MD in OV> 05/21/25 1334 DD/ 1257 TD/TT: 05/21/25 1326 Lithographic Plate Maker: [facility] External Provider IMG CT PROCEDURES Final Result documented in this encounter Visit Diagnoses Not on filedocumented in this encounter Additional Health Concerns Assessment Noted Time PHQ-9 Depression Total Score: 0 03/04/20 25 3:36 PM EDT documented as of this encounter Care Teams Fashion Editor Relationship Specialty Start Date End Date Elana Rdz MD [address] [place] [id number] PCP - General Internal Medicine 05/24/23 documented as of this encounter
--- OUTSIDE RECORDS SUMMARY | 2025-05-21 16:43 | XMS_ITS | Clinical Summary ---
Author Organization [employer] Address [address] [place] [address] 7 [place] [address] Care Team Providers Care Autobody Technician Name Role Phone Elana Rdz MD [...] Encounters Date Type Department Care Team Description 05/21/2025 Orders Only [facility] External Provider, [facility] 05/20/2025 Orders Only GENERIC EXTERNAL DATA DEPARTMENT Provider, Generic External Data 03/04/2025 3:00 PM EDT Office Visit [facility] [address] [place] [address] Elana Rdz MD Hyperlipidemia, unspecified hyperlipidemia type (Primary Dx); Transaminitis; Health care maintenance 03/04/2025 Travel 03/03/2025 Telephone [facility] [address] [place] [address] Elana Rdz MD CHART PREP 02/27/2025 Results Follow-Up [facility] [address] [place] [address] Elana Rdz MD CBC, Chlamydia/N. Gonorrhoeae RNA, [...] fied surface antigen) 06/24/2013 MMR 02/11/2009 Novel [id number], all formulations 10/04/2009 Pneumococcal Polysaccharide PPSV23 07/16/2008 [...] STONES Routine 05/21/2025 1 2:57 PM EDT CYTOPATH-CELL ENHANCED Routine 6:53 PM EDT VITAMIN B12/FOLATE, SERUM PANEL Routine 02/27/2025 8:54 AM EDT Annual physical exam TSH W/REFLEX TO FT4 Routine 02/27/2025 8 :54 AM EDT Annual physical exam SYPHILIS SCREEN [...] Recently Relevant to Health Maintenance Results * CT RENAL FOR STONES (05/21/2025 12:57 PM EDT) Anatomical Region Laterality Modality Computed Tomogra phy 05/21/2025 12:5 7 PM EDT Narrative 05/21/2025 1:36 PM EDT [place] [address] [address] Scan Report Signed Patient: Erendira Quintanilla I MR#: [id number] : 1960 Acct:[id number] Age/Sex: 65 / F ADM Date: 05/21/25 Loc: HO.CT Attending Dr: Megan FLORES Ordering Physician: Megan Solorio Date of Service: 05/21/25 Procedure(s): CT kidney stone Accession Number(s): [id number] cc: Megan Solorio; Elana Rdz MD Report Number: [id number]: Total DLP = 352.00 mGy-cm Reason for [...] 05/21/25 1334 DD/ 1257 TD/TT: 05/21/25 1326 Tier Truck Driver: Procedure Note Donotuseinterpreter, Image - 05/21/[address] [place] [address] [address] Scan Report Signed Patient: Erendira Quintanilla [facility]#: [id number] : 1960cct:[id number] Age/Sex: 65 / FADM Date: 05/21/25 Loc: HO.CT Attending Dr: Megan FLORES Ordering Physician: Megan Solorio Date of Service: 05/21/25 Procedure(s): CT kidney stone Accession Number(s): [id number] cc: Megan Solorio; Elana Rdz MD Report Number: [id number]: Total DLP = 352.00 mGy-cm Reason for [...] 05/21/25 1334 DD/ 1257 TD/TT: 05/21/25 1326 Tier Truck Driver: [facility] External Provider IMG CT PROCEDURES Final Result * Cytopath-cell enhanced (05/20/2025 6:53 PM EDT) 05/20/2025 6:53 PM EDT 05/21/2025 10:41 AM EDT [facility]S - 05/21/2025 4:36 PM EDT ----- ------- Name: Erendira Quintanilla I Age/Sex: 65/F : 1960 Unit#: [id number] Attend Dr: Megan Solorio [facility]- Re05/20/25 Status: DEP REF Location: .LAB Disch: ----- ------- SPEC : [id number] RECD: 05/21/25 STATUS: MEETA AGUDELO NUM: [id number] MATTHEW: 05/20/[address] [facility] [address]: Megan Solorio [facility] ENTERED: 05/21/25 SP TYPE: Cytology OTHR DR: Elana Rdz MD ORDERED: Cyto-enhanced Diagnosis Urine: Atypical urothelial cells. See comment. COMMENT: Paucicellular specimen consisting of a rare small group of atypical urothelial cells, which are small/medium in size, have increased nuclear:cytoplasmic ratio and variable chromatin. The background has rare single urothelial cells with degenerative changes, rare mixed inflammatory cells and red blood cells. Clinical History Other microscopic hematuria Material Received Urine Gross Description Received is 20 cc of clear yellow fluid from which a ThinPrep slide is prepared. IHC S/NG Disclaimer NOTE: Unless otherwise stated, all tissue is formalin-fixed and paraffin-embedded. Some or all of the immunohistochemical tests reported herein may have been developed and their performance characteristics determined by [facility]. They have not been cleared or approved by the U.S. Food and Drug Administration (FDA). However, the FDA has determined that such clearance or approval is not necessary. This laboratory is certified under the Clinical Laboratory Improvement Amendments of 1988 (CLIA) as qualified to perform high complexity clinical laboratory testing. Copies To: Megan Solorio [facility] [address] [place] [address] [address] [place] [address] [email or web address] Elana Rdz MD [address] [place] [address] CONTINUED ON NEXT PAGE ----- ------- Name: Erendira Quintanilla I Age/Sex: 65/F : 1960 Unit#: [id number] Attend Dr: Megan Solorio [facility] Re05/20/25 Status: DEP REF Location: [facility] Disch: ----- ------- SPEC : [id number] RECD: 05/21/25 STATUS: MEETA AGUDELO NUM: [id number] MATTHEW: 05/20/[address] [facility] [address]: Megan Solorio [facility] ENTERED: 05/21/25 SP TYPE: Cytology OTHR DR: Elana Rdz MD ORDERED: Cyto-enhanced ----- ------- Signed (signature on file) Felton Reich MD 05/21/25 1636 ----- ------- END OF REPORT Generic External Data Provider LAB CYTOLOGY ORDE RABLES Final Result [facility] [address] [place] [phone] * Syphilis Screen (02/27/2025 8:54 AM EDT) Pathologist [facility] Syphilis Screen Nonreactive Nonreactive [facility] Blood 02/27/2025 8:54 AM EDT 02/27/2025 11:31 AM EDT Elana Mcgowan MD LAB BLOOD ORDERAB LES Final Result Performing Organization Address [facility] Co de Phone Number [facility] [address] [place] [phone] * Vitamin B12 (Cobalamin) and Folate Panel, Serum (02/27/2025 8:54 AM EDT) [facility] Vitamin B12 250 200 - 900 pg/mL [facility] Comment:NORMAL 200-900 PG/ML INDETERMINATE 160-199 PG/ML DEFICIENT < 160 PG/ML Folate 11.4 > or = 4.0 ng/mL [facility] Comment:Reference Values:> o r = 4.0 ng/mL< 4.0 ng/mL suggests folate deficiency Methotrexate, aminopterin and folinic acid(leucovorin) are chemotherapeutic agents whose molecularstructures are similar to folate; therefore, the Architectfolate assay cannot be used for patients using these drugs. Blood 02/27/2025 8:54 AM EDT 02/27/2025 11:31 AM EDT Elana Mcgowan MD LAB BLOOD ORDERAB LES Final Result Performing Organization Address [facility]/ZIP Co de Phone Number [facility] [address] [place] [phone] * TSH with Reflex to Free T4 (02/27/2025 8:54 AM EDT) [facility] TSH reflex Free T4 2.18 0.32 - 4.0 uIU/mL [facility] Blood 02/27/2025 8:54 AM EDT 02/27/2025 11:31 AM EDT Elana Mcgowan MD LAB BLOOD ORDERAB LES Final Result Performing Organization Address [facility] Co de Phone Number [facility] [address] [place] [phone] * Hepatitis C Antibody with Reflex to HCV, RNA, Quantitative, Real-Time PCR (02/27/2025 8:54 AM EDT) [facility] Hepatitis C Antibody Nonreactive Nonreactive [facility] Comment:Antibodies to HCV no t detected; does not exclude early acuteHCV infection. Blood Venous blood specimen / Unknown 02/27/2025 8:54 AM EDT 02/27/2025 11:31 AM EDT Elana Mcgowan MD LAB BLOOD ORDERAB LES Final Result Performing Organization Address [facility] Co de Phone Number [facility] [address] [place] [phone] * Chlamydia/N. Gonorrhoeae RNA, TMA, Urogenitial (02/27/2025 8:54 AM EDT) [facility] CT PCR NOT DETECTED Not Detect. [facility] Comment:A not detected test result does [...] psychologicalconsequences. NG PCR NOT DETECTED Not Detect. [facility] Comment:A not detected test result does [...] AM EDT 02/27/2025 11:25 AM EDT Narrative [facility] - 02/27/2025 1:04 PM EDT Urine us Elana Mcgowan MD LAB MICROBIOLOGY - GENERAL ORDERABLES Final Result [facility] [address] [place] [address] [phone] * HIV-1/2 Antigen and Antibodies, Fourth Generation, with Reflexes (02/27/2025 8:54 AM EDT) HIV AB/AG Nonreactive Nonreactive [facility] Comment:HIV-1 p24 Ag and/or HIV-1/HIV-2 Ab not detected.A test result that is nonreactive does not exclude thepossibility of exposure to or infection with HIV-1 and/orHIV-2. Nonreactive results in this assay for individualswith prior exposure to HIV-1 and/or HIV-2 may be due toantigen and antibody levels that are below the limit ofdetection of this assay.The Sense[employer] HIV Ag/Ab Combo assay result andsupplemental assay results should be interpreted inconjunction with the patient's clinical presentation,history and other laboratory results. If the results areinconsistent with clinical evidence, additional testing issuggested to confirm the result. Blood Venous blood specimen / Unknown 02/27/2025 8:54 AM EDT 02/27/2025 11:31 AM EDT Elana Mcgowan MD LAB BLOOD ORDERAB LES Final Result [facility] [address] [place] [phone] * CBC (02/27/2025 8:54 AM EDT) White Blood Count 6.0 4.8 - 10.8 X10*3/uL [facility] Red Blood Count 4.68 4.20 - 5.50 X10*6/uL [facility] Hemoglobin 14.1 12.0 - 16.0 g/dl [facility] Hematocrit 41.8 37.0 - 47.0 % [facility] Mean Corpuscular Volume 89.3 80.0 - 98.0 fL [facility] Mean Corpuscular Hemoglobin 30.1 27.0 - 33.0 pg [facility] Mean Corpuscular HGB Conc 33.7 31.0 - 35.0 g/dl [facility] Red Cell Distribution Width 12.4 11.0 - 16.0 % [facility] Platelet Count 232 160 - 400 X10*3/uL [facility] Mean Platelet Volume 11.2 9.4 - 12.3 fL [facility] NRBC Pct Auto 0.0 0.0 - 0.2 /100WBC [facility] NRBC Abs Auto 0.000 0.0 - 0.012 X10*3/uL [facility] Blood Venous blood specimen / Unknown 02/27/2025 8:54 AM EDT 02/27/2025 11:28 AM EDT us Elana Mcgowan MD LAB BLOOD ORDERAB LES Final Result [facility] [address] [place] [phone] * Hemoglobin A1c (02/27/2025 8:54 AM EDT) Hemoglobin A1c 5.3 <6.0 % [facility] Comment:Hemoglobin A1C Refer ence Range Adults: 4.8 - 6.0 % Non diabetic: < 6.0 % Goal: < 7.0 %Additional Action Suggested: > 8.0 %Note: Hemoglobin A1c results are invalid for patients with abnormal amounts of HbF. Blood transfusions may impact the HbA1c concentration in the patient sample. Estimated Average Glucose 105 mg/dL [facility] Comment:eAG = Estimated ave rage glucose which is %A1C expressed asaverage glucose, using the formula of the H6D-JyhlsuoNzyovig Glucose study (ADAG), Diabetes Care, Vol.31,#8,Apr. 2007 Blood Venous blood specimen / Unknown 02/27/2025 8:54 AM EDT 02/27/2025 11:28 AM EDT us Elana Mcgowan MD LAB BLOOD ORDERAB LES Final Result [facility] [address] [place] [phone] * (ABNORMAL) Lipid Panel, Standard (02/27/2025 8:54 AM EDT) Triglycerides 137 <150 mg/dL [facility] Comment:Desirable Triglyceri de: less than 150 mg/dLBorderline High Triglyceride 150-199 mg/dLHigh Triglyceride: 200-499 mg/dLVery High Triglyceride: greater than or equal to 5OO mg/dL Cholesterol 238(H) <200 mg/dL [facility] Comment:Desirable Cholestero l: less than 200 mg/dLBorderline High Cholesterol: 200-239 mg/dLHigh Cholesterol: greater than 239 mg/dL LDL Cholesterol Calculated 160(H) <100 mg/dL [facility] Comment:Desirable LDL: less than 100 mg/dLNear Optimal/Above Optimal LDL: 110- 129 mg/dLBorderline High LDL: 130-159 mg/dLHigh LDL: 160-189 mg/dLVery High LDL: greater than or equal to 190 mg/dL HDL Cholesterol 51 >40 mg/dL [facility] Comment:Desirable HDL: great er than 40 mg/dL Note: This HDL assay may give artificially low results in patients with liver disease. Blood Venous blood specimen / Unknown 02/27/2025 8:54 AM EDT 02/27/2025 11:31 AM EDT Elana Mcgowan MD LAB BLOOD ORDERAB LES Final Result [facility] [address] [place] [phone] * (ABNORMAL) Comprehensive Metabolic Panel (02/27/2025 8:54 AM EDT) Sodium 140 135 - 145 mmol/L [facility] Potassium 4.1 3.3 - 5.1 mmol/L [facility] Chloride 108 96 - 108 mmol/L [facility] Carbon Dioxide 26 22 - 29 mmol/L [facility] Anion Gap 10(L) 12 - 20 [facility] Urea Nitrogen (BUN) 15 9 - 16 mg/dL [facility] Creatinine, Serum 0.81 0.5 - 1.4 mg/dL [facility] Estimated Glomerular Filt Rate >60 [facility] Comment:Chronic Kidney Disea se: Estimated GFR < 60 mL/min/1.51z8Ixnwie Kidney Disease: Estimated GFR < 15 mL/min/1.73m2 Glucose 85 60 - 115 mg/dL [facility] Calcium 9.3 8.4 - 10.2 mg/dL [facility] Bilirubin, Total 0.8 0.0 - 1.0 mg/dL [facility] Aspartate Amino Transferase 27 5 - 31 U/L [facility] Alanine Aminotransferase 30 0 - 31 U/L [facility] Total Protein 7.3 6.5 - 8.0 g/dL [facility] Albumin Level 4.5 3.5 - 5.0 g/dL [facility] Alkaline Phosphatase 70 39 - 117 U/L [facility] Blood Venous blood specimen / Unknown 02/27/2025 8:54 AM EDT 02/27/2025 11:31 AM EDT us Elana Mcgowan MD LAB BLOOD ORDERAB LES Final Result [facility] [address] [place] [phone] * BI Mammogram Screening Tomosynthesis Bilateral (12/16/2024 3:00 PM EDT) Anatomical Region Laterality Modality Breast Bilateral Mammography 12/16/2024 3:00 PM EDT Narrative 12/22/2024 5:27 PM EDT [facility] [address] [place] [address] Mammography Report Signed Patient: Erendira Quintanilla I MR#: [id number] : 1960 Acct:[id number] Age/Sex: 64 / F ADM Date: 12/16/24 Loc: HO.MAMMO Attending Dr: Elana Mcgowan MD Ordering Physician: HARISH VALENZUELA CNM Results: 2 Benign Findings Date of Service: 12/16/24 Follow Up: 1 Year From [facility] Mammogram Procedure(s): MM tomosynthesis screening BI Accession Number(s): [id number] cc: Elana Rdz MD; HARISH VALENZUELA CNM [...] 12/22/24 1724 DD/ 1500 TD/TT: 12/16/24 1510 Tier Truck Driver: Procedure Note Donotuseinterpreter, Image - 12/22/2024 [facility] [address] [place] [address] Mammography Report Signed Patient: Erendira Quintanilla IMR#: [id number] : 1960cct:[id number] Age/Sex: 64 / FADM Date: 12/16/24 Loc: HO.MAMMO Attending Dr: Elana Mcgowan MD Ordering Physician: HARISH VALENZUELAesults: 2 Benign Findings Date of Service: 12/16/24Follow Up: 1 Year From Orig ina Mammogram Procedure(s): MM tomosynthesis screening BI Accession Number(s): [id number] cc: Elana Rdz MD; HARISH VALENZUELA CNM [...] Terri Barber DO 12/22/2024 05:24 PM EDT Dictated By: Terri Barber DO Signed By: <Electronically signed by Terri Barber DO in OV> 12/22/24 1724 DD/ 1500 TD/TT: 12/16/24 1510 Tier Truck Driver: Harish MOORE IM BI PROCEDURES Edited Result - Final * HPV mRNA E6/E7 w/Reflex to HPV Genotypes 16, 18/45 (10/22/2023 11:11 AM EST) HPV nRNA E6/E7 Not Detected Not Detected [facility] Comment:Methodology: Transcr iption-Mediated AmplificationThis assay detects E6/E7 viral messenger RNA (mRNA) from 14high-risk HPV types (16,18,31,33,35,39,45,51,52,56,58,59,66,68).Cervical sources are required for HPV testing.If a vaginal source from a patient who has had atotal hysterectomy with removal of cervix wassubmitted, please contact the testing laboratoryfor alternative testing options.For additional information, please refer [email or web address](This link if provided for information/educational purposes only.)THIS TEST WAS PERFORMED AT:[employer] [place] [phone] COYLE MD HPV mRNA E6/E7 [facility] HPV 16 RNA [facility] HPV 18/45 RNA [facility] 10/22/2023 11:1 1 AM EST 10/23/2023 8:00 AM EST Harish Valenzuela CNM LAB CYTOLOGY ORDERABLES F inal Result [facility] [address] [place] [phone] * Pap Smear (10/22/2023 11:11 AM EST) Swab Cervix uteri structure / Unknown 10/22/2023 11:11 AM EST 10/23/2023 8:00 AM EST Narrative [facility] - 11/06/2023 1:21 PM EST ----- ------- Name: Erendira Quintanilla I Age/Sex: 63/F : 1960 Unit#: [id number] Attend Dr: HARISH VALENZUELA CNM Re10/22/23 Status: DEP REF Location: HO.LNP Disch: ----- ------- SPEC : [id number] RECD: 10/23/23 STATUS: MEETA AGUDELO NUM: [id number] MATTHEW: 10/22/23-[address]: HARISH VALENZUELA CNM ENTERED: 10/23/23 SP TYPE: Pap Smr OTHR DR: ORDERED: Pap Smear Interpretation Satisfactory for evaluation. Mild inflammation. Negative for intraepithelial lesion or malignancy. HPV mRNA E6/E7: NOT DETECTED This assay detects E6/E7 viral messenger RNA (mRNA) from 14 high-risk HPV types (16, 18, 31, 33, 35, 39, 45, 51, 52, 56, 58, 59, 66, 68) HPV testing performed by [employer] [facility], [place], [place]. See reference laboratory portion of the EMR for entire report. Clinical Information LMP: Postmenopausal Previous PAP test: Unknown date/findings Material Received ThinPrep-Cervical ----- ------- Signed (signature on file) GALILEO Hutchins (ASCP) 11/06/23 1321 ----- ------- END OF REPORT Harish MOORE LAB CYTOLOGY ORDERABLES F inal Result [facility] [address] [place] [address] [phone] * Hm Colonoscopy (12/06/2017 8:04 AM EDT) Historical Provider HEALTH MAINTENANCE Final Result from Last 3 Months or Most Recently Relevant to Health Maintenance Insurance HSN PARTIAL [facility] , [facility] [address] [place] [address] DENTAL - HSN PARTIAL (MEDICAID) Care Teams Autobody Technician Relationship Specialty Start Date End Date Elana Rdz MD [address] [place] [phone] PCP - General Internal Medicine 05/24/23
--- OUTSIDE RECORDS SUMMARY | 2025-05-21 16:43 | XMS_ITS | Encounter Summary ---
Author Organization [employer] Address [address] [facility] [address] [place] [address] Care Team Providers Care Dry Yard Worker Name Role Phone Elana Rdz MD Primary Care Pro vider Encounter Details Date Type Department Care Team ([facility] st Contact Info) Description 12/19/2023 Orders Only [facility] [address] [place] [address] ProviderIsael MD Social History Tobacco Use Types [...] documented as of this encounter Care Teams Dry Yard Worker Relationship Specialty Start Date End Date Elana Rdz MD [address] [place] [phone] PCP - General Internal Medicine 05/24/23 documented as of this encounter
--- OUTSIDE RECORDS SUMMARY | 2025-05-21 16:43 | XMS_ITS | Encounter Summary ---
Author Organization [employer] Address [address] [place] [address] [place] [address] Care Team Providers Care Blood Bank Supervisor Name Role Phone Elana Rdz MD Primary Care Pro vider Reason for Visit * Reason Onset Date Comments Referral 06/29/2023 Encounter Details Date Type Department Care Team ([facility] st Contact Info) Description 06/29/2023 Telephone [facility] [address] [place], [place] [phone] Elana Rdz MD [address] [place] [address] Referral Social History Tobacco Use Types Packs/Day [...] calling in regards to physical therapy in [place] requesting to be transferred to [facility] destination to home in [place]. Patient speaks estonian Please contact [phone] documented in this encounter Plan of Treatment Not on file documented as of this encounter Visit Diagnoses Not on filedocumented in this encounter Additional Health Concerns Assessment Noted Time PHQ-9 Depression Total Score: 0 12/09/19 9:56 AM EDT documented as of this encounter Care Teams Blood Bank Supervisor Relationship Specialty Start Date End Date Elana Rdz MD [address] [place] [phone] PCP - General Internal Medicine 05/24/23 documented as of this encounter
--- OUTSIDE RECORDS SUMMARY | 2025-05-21 16:43 | XMS_ITS | Encounter Summary ---
Author Organization [employer] Address [address] [place] [address] Care Team Providers Care Veterinary Inspector Name Role Phone Mayda Valerio [facility] Primary Care Provider [phone] Elana Rdz MD Primary Care Pro vider Encounter Details Date Type Department Care Team (Latest Contact Info) Description 04/08/2019 Abstract [facility] CONVERSIONS Dental, Provider, DDS Social History [...] on filedocumented in this encounter Care Teams Veterinary Inspector Relationship Specialty Start Date End Date Mayda Valerio FNP [address] [place] [address] PCP - General Family Medicine 05/08/22 05/23/23 Elana Rdz MD [address] [place] [address] PCP - General Internal Medicine 05/24/23 documented as of this encounter
--- OUTSIDE RECORDS SUMMARY | 2025-05-21 16:43 | XMS_ITS | Patient Health Record ---
Author Organization [facility] [place] Address [address] [place] [address] Care Team Providers Care Reliability Engineer Name Role Phone Elana Rdz Primary Care Provider Kit Salinas Unavailable [phone] Allergies Allergen (clinical drug ingredient) Drug/Non Drug [...] Risk Notes Problem Mononeuropathy of lower limb (438469335) Neuritis of right foot (G57.91) Active confirmed Vital Signs Blood pressure diastolic 70 mm Hg 04/08/2025 Height 5 ft 6 in in 04/08/2025 Blood pressure systolic 130 mm Hg 04/08/2025 Weight 150 lbs 04/08/2025 BMI 24.21 kg/m2 04/08/2025 Encounters Encounter Location Date Provider [facility] [address] [phone] 04/08/2025 Kit Radha Pain in right foot M79.671 ; Neuritis of right foot G57.91 and 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
--- OUTSIDE RECORDS SUMMARY | 2025-05-21 16:43 | XMS_ITS | Encounter Summary ---
Author Organization [employer] Address [address] [place] [address] Care Team Providers Care Promotions Representative Name Role Phone Elana Rdz MD Primary Care Pro vider Reason for Visit * Reason Onset Date Comments pre-op 07/17/2023 Encounter Details Date Type Department Care Team ([facility] st Contact Info) Description 07/17/2023 Telephone [facility] MEDICINE [address] [place], [place] [phone] Elana Rdz MD [address] [place] [address] pre-op Social History Tobacco Use Types Packs/Day [...] - 07/17/2023 4:05 PM EST Tc from [facility] requesting a pre-op Location: [facility], [address] [place] [address] ext [phone] Procedure: vitrectomy of left eye [...] documented as of this encounter Care Teams Promotions Representative Relationship Specialty Start Date End Date Elana Rdz MD [address] [place] [address] PCP - General Internal Medicine 05/24/23 documented as of this encounter
--- OUTSIDE RECORDS SUMMARY | 2025-05-21 16:43 | XMS_ITS | Encounter Summary ---
Author Organization [employer] Address [address] [place] [address] 7 [place] [address] Care Team Providers Care Line Maintenance Technician Name Role Phone Mayda Valerio [facility] Primary Care Provider [phone] Elana Rdz MD Primary Care Pro vider Encounter Details Date Type Department Care Team (Latest Contact Info) Description 07/27/2021 Abstract [facility] CONVERSIONS Dental, Provider, DDS Social [...] on filedocumented in this encounter Care Teams Line Maintenance Technician Relationship Specialty Start Date End Date Mayda Valerio FNP [address] [place] [address] PCP - General Family Medicine 05/08/22 05/23/23 Elana Rdz MD [address] [place] [address] PCP - General Internal Medicine 05/24/23 documented as of this encounter
--- OUTSIDE RECORDS SUMMARY | 2025-05-21 16:43 | XMS_ITS | Clinical Summary ---
Author Organization [facility] Address [address] [place] [address] Care Team Providers Care Dice Manager Name Role Phone Unavailable Primary Care [...] Procedure Name Priority Date/Time Associated Diagnosis Comments [facility] SCREENING DIGITAL Routine 06/03/2018 8:36 AM EDT Encounter for screening mammogram for malignant neoplasm of breast from Last 3 Months or Most Recently Relevant to Health Maintenance Results * KAY SCREENING DIGITAL (06/03/2018 8:36 AM EDT) Anatomical Region Laterality Modality Mammography 05/29/2018 2:09 PM EDT Narrative 06/03/2018 8:36 AM EDT [facility] Diagnostic Imaging Department [address] [place] [address] Patient: ERENDIRA QUINTANILLA I /Age/Sex: 1960 - 58 - F Unit#: [id number] Location/Status: [facility] CLI Mnemonic/Ordering Site: [facility] Ordering Physician: DENZEL SAUCEDO NP Kay Screening Digital - 06/01/18 - 1038 EXAM: [facility] Screening Digital EXAM DATE AND TIME: 06/01/2018 10:38 AM HISTORY: Screening. Three maternal aunts had breast carcinoma. COMPARISON: 05/26/17, 05/20/16, 04/10/15, 04/04/14, 02/15/13 TECHNIQUE: CC and MLO views of both breasts were obtained using full field digital mammography. Bilateral digital breast tomosynthesis was performed in the MLO projection. Computer aided detection with the [employer] 7.2-H was employed. TISSUE DENSITY: c. The [...] Routine screening mammogram BILATERAL in 1 year. 35603, 58175 3342F, 7025F Dictating Physician: RAMONA CAMEJO MD Electronically Signed by: RAMONA CAMEJO MD Dic Date/Time: 06/03/18834 Sign date/Time: 06/03/18835 Procedure Note Ramona Camejo MD - 08/29/2022 [facility] Diagnostic Imaging Department [address] [place] [address] Patient: ERENDIRA QUINTANILLA I /Age/Sex: 1960 - 58 - F Unit#: [id number] Location/Status: [facility] CLI Mnemonic/Ordering Site: [facility] Ordering Physician: DENZEL SAUCEDO FISH ROE PROCESSOR [facility] Screening Digital - 06/01/18 - 1038 EXAM: [facility] Screening Digital EXAM DATE AND TIME: 06/01/2018 10:38 AM HISTORY: Screening. Three maternal aunts had breast carcinoma. COMPARISON: 05/26/17, 05/20/16, 04/10/15, 04/04/14, 02/15/13 TECHNIQUE: CC and MLO views of both breasts were obtained using fullfield digital mammography. Bilateral digital breast tomosynthesis was performedin the MLO projection. Computer aided detection with the [employer] employed. TISSUE DENSITY: c. The breasts are [...] Routine screening mammogram BILATERAL in 1 year. 73755, 01516 3342F, 7025F Dictating Physician: RAMONA CAMEJO MD Electronically Signed by: RAMONA CAMEJO MD Dic Date/Time: 06/03/18 0835 Sign date/Time: 06/03/18 0836 Denzel Saucedo NP IMG BI PROCEDURES Final Result from Last 3 Months or Most Recently Relevant to Health Maintenance
== END 2025-05-21 12:29 | disposition home or self-care (01) ==
LOC: HO.CT 12:28
PROVIDERS: PCP Student in an Organized Health Care Education/Training Program; Visit Provider Nurse Practitioner Family
DX: N20.0 Calculus of kidney (principal); R10.9 Unspecified abdominal pain
CPT/HCPCS: 74176

== ENCOUNTER → 2025-05-21 12:30 | Outpatient (BNV) | payer OTHER, SELFPAY | PROVIDERS: PCP Student in an Organized Health Care Education/Training Program; Visit Provider Radiology Diagnostic Radiology | DX: N13.2 Hydronephrosis with renal and ureteral calculous obstruction (principal) | CPT/HCPCS: 74176 ==

== ENCOUNTER 2025-07-23 15:41 | Outpatient (AMB) | payer OTHER, SELFPAY ==
--- OUTSIDE RECORDS SUMMARY | 2025-03-30 09:00 | XMS_ITS ---
Author Organization [facility] [place] Address [address] [place] [address] Care Team Providers Care Time Broker Name Role Phone Elana Rdz Primary Care Provider Kit Salinas [phone] Encounters Encounter Location Date [facility] [address] [facility] [address] [place] [address] 03/30/2025 Kit Garcia Plan Of Treatment No Information Progress Notes * Erendira QUINTANILLA IDOB:1959 (65 yo F)Acc No.[id number]:03/30/2025 Progress Notes Patient: Erendira CHOUDHURY I Provider: Kari Garcia DPM :1960 A ge:65 Y S ex:Female Date:03/30/2025 Address:[address] [place] [address], [address] Pcp:Elana Mcgowan Subjective: * Chief Complaints: * * Medical History: Objective: * Vitals: Assessment: Plan: * Treatment: * Images: * The named appointment provid er may or may not be the originator of this progress note, and it is not deemed complete until electronically signed by the appointment provider. Sign off status: Pending * Provider: Kari Garcia DPM Date: 0 03/30/2025 Generated for Aaroni ng/Faclaritzag/eTransmitting on: 09/22/2024 06:35 PM EST
--- NOTE | 2025-07-23 15:42 | A.OFFVIS_ITS ---
Intake Visit Reasons: Follow up/CT Intake Note: Patient is present for CT F/U Urology Medication:TAMSULSOIN,VITAMIN B6 Antibiotic Allergy:SULFA,BACTRIM,GENTAMICIN Blood Thinner:NONE Stem Roller Operator Required: Yes Stem Roller Operator Services: Stem Roller Operator Present Stem Roller Operator Name: Yariel Barajas & KERI PALMER Allergies sulfamethoxazole (From BACTRIM) Allergy (Severe, Verified 07/23/25 16:06) RASH trimethoprim (From BACTRIM) Allergy (Severe, Verified 07/23/25 16:06) RASH gentamicin Allergy (Verified 07/23/25 16:06) Unknown Sulfa (Sulfonamide Antibiotics) Allergy (Verified 07/23/25 16:06) Unknown Medication List - Last Reconciled 07/23/25 by MARK Mario ascorbic acid (vitamin C) mg PO prednisone 20 mg PO DAILY 5 days pyridoxine (vitamin B6) 50 mg PO DAILY 30 days tamsulosin 0.4 mg PO BEDTIME 30 days HPI Comments Details: Erendira is a pleasant 65-year-old Sierra Leonean-speaking female patient of Dr. Madden. She has a past medical history of asthma and renal stones. She is being followed up on today via telehealth for her nephrolithiasis. In discussion with the patient today she reports to be doing and feeling well. She reports shortly after her follow-up appointment 2 months ago pain she had been experiencing had subsided. She believes she passed multiple stones. We did review CT KUB 06/04 that noted moderate right hydronephrosis secondary to a 3 mm calculus at the UPJ. There are multiple tiny nonobstructing left renal calculi measuring up to 2 mm in size. There is no left hydronephrosis or hydroureter. She reports compliance with vitamin B6 as prescribed. She also reports she is drinking a proximally 6-8 glasses of water a day. She denies any bothersome urinary issues. We did discussed obtaining imaging to be sure there is resolution of hydronephrosis as patient is no longer experiencing pain and believes to have passed her kidney stone. All questions were answered. She denies urinary urgency, urinary frequency, incontinence, nocturia, hematuria, dysuria, foul smelling urine, changes to urinary stream, flank pain, fever, and or chills. She is happy with her current voiding parameters. All questions were answered. She otherwise offers no other issues or concerns at this time. [facility] Medical History Surgical complication involving left eye Asthma Kidney calculi Social History Alcohol intake: never Patient Tobacco Use Status: Never used Tobacco Review of Systems Const All systems reviewed & are unremarkable except as noted in HPI and below Physical Exam Const Orientation/consciousness: patient oriented x3 Limitations: language barrier Resp Effort & Inspection: able to speak in complete sentences Neuro General: patient oriented x3 Psych Speech and movement: Clear speech present Attitude: cooperative Insight: Fair insight present (Psych) Judgement: Fair judgement present (Psych) Telehealth Telehealth Telehealth Platform: Telephone Location of provider rendering services: practice address Location of patient: address on file Patient Identification confirmed using: Name, : Yes Telehealth method: voice only Patient verbally consented to treatment: Yes Patient verbally consented to billing insurance company: Yes Patient informed of any privacy concerns related to visit: Yes Minutes spent on Phone/Video with Pt.: 15 Results Reviewed Results Reviewed: Date of Service: 05/21/25 Procedure(s): CT kidney stone FINDINGS: LOWER CHEST: The visualized lung bases are clear. There is no pleural effusion. CARDIOVASCULATURE: The heart is normal in size. There is no pericardial effusion. LIVER: The liver is normal in size and contour. The liver has an unremarkable unenhanced appearance. GALLBLADDER / BILE DUCTS: The gallbladder is unremarkable. There is no intra or extrahepatic biliary ductal dilatation. SPLEEN: The spleen is normal in size and has an unremarkable unenhanced appearance. PANCREAS: The pancreas has an unremarkable unenhanced appearance. ADRENAL GLANDS: Unremarkable. KIDNEYS/RETROPERITONEUM: There is moderate right hydronephrosis secondary to a 3 mm calculus at the UPJ. There are multiple tiny nonobstructing left renal calculi measuring up to 2 mm in size. There is no left hydronephrosis or hydroureter. LYMPH NODES: No retroperitoneal lymphadenopathy is identified in the abdomen or pelvis. VASCULATURE: The abdominal aorta is normal in caliber. MESENTERY/PERITONEUM: No free fluid. No masses. There is no free intraperitoneal gas. STOMACH: The stomach is collapsed, limiting evaluation. SMALL BOWEL: The small bowel is normal in caliber. COLON: There is a moderate amount of stool throughout the colon. APPENDIX: Normal. URINARY BLADDER/PELVIC ORGANS: The urinary bladder is collapsed, limiting evaluation. The uterus has an unremarkable unenhanced appearance. BONES / SOFT TISSUES: No suspicious bony or soft tissue abnormalities. IMPRESSION: Moderate right hydronephrosis secondary to a 3 mm UPJ calculus. Left nephrolithiasis as described. Assessment & Plan Assessment & Plan (1) Kidney calculi: Code(s): N20.0 - Calculus of kidney Category: Medical Plan Recent CT KUB results reviewed with the patient today; as noted above. Patient currently denies any bothersome urinary issues or concerns. She reports be happy with current voiding parameters. Continue vitamin B6 as discussed and prescribed. Will obtain renal ultrasound for further assessment evaluation. Continue adding 1 oz of lemon juice to water daily. Continue with adequate hydration for nephrolithiasis as well as overall health and well-being. Follow-up in 1-3 months with imaging to be completed prior; or sooner with any issues, concerns, and or questions. Orders: Orders US renal BI Today N20.0 - Calculus of kidney Medications: Refilled pyridoxine (vitamin B6) 50 mg PO DAILY 90 caps 3RF 30 days Discontinued tamsulosin Discontinued Reason: Patient Completed Course 0.4 mg PO BEDTIME 30 days 30 caps 1RF N40.1 - Benign prostatic hyperplasia with lower urinary tract symptoms, R35.1 - Nocturia prednisone Discontinued Reason: Patient Completed Course 20 mg PO DAILY 5 days 5 tabs 0RF N20.0 - Calculus of kidney Patient Instructions: The patient had an opportunity to ask questions regarding the treatment plan. All questions were answered. Physical exam, labs, and imaging were discussed and reviewed in detail. As well as risks, benefits, and discussion of treatment choices. No major barriers to understanding were identified. The patient expressed understanding and agreement with the above treatment plan. The patient was made aware they should contact our office by phone for worsening of their current condition, the appearance of new symptoms, or with any questions or concerns. Compliance is encouraged with any medications and follow up testing that is ordered. It is a privilege to be allowed the opportunity to participate in? your urological care.? Again, if you have any questions or concerns If you have any questions or concerns please do not hesitate to contact me. The office is [phone]. This note is constructed using voice recognition software. While every effort has been made to ensure accuracy commercial tire service technician errors may have been included. Yours sincerely, MARK Mario Coding Level of Care Code Tele Est Pt Level 3 (54232) Complex EM visit Add On G2211 Diagnoses Kidney calculi N20.0
--- OUTSIDE RECORDS SUMMARY | 2025-07-23 18:35 | XMS_ITS | Encounter Summary ---
Author Organization [employer] Address [address] [place] [address] [place] [address] Care Team Providers Care Carrier Loader Name Role Phone Elana Rdz MD Primary Care Pro vider Reason for Visit * Reason Onset Date Comments Referral 06/29/2023 Encounter Details Date Type Department Care Team ([facility] st Contact Info) Description 06/29/2023 Telephone [facility] MEDICINE [address] [place], [place] [phone] Elana Rdz MD [address] [place] [address] Referral Social History Tobacco Use Types Packs/Day [...] calling in regards to physical therapy in [place] requesting to be transferred [facility] to home in [place]. Patient speaks ivorian Please contact [phone] documented in this encounter Plan of Treatment Upcoming Encounters Date Type Department Care Team (Late st Contact Info) Description 07/31/2025 2:00 PM EST Office Visit [facility] MEDICINE [address] [place] [phone] Mirella Perez NP [address] [place] [address] 09/24/2025 1:30 PM EST Office Visit [facility] MEDICINE [address] [place] [address] Elana Rdz MD [address] [place] [address] documented as of this encounter Visit Diagnoses Not on filedocumented in this encounter Additional Health Concerns Assessment Noted Time PHQ-9 Depression Total Score: 0 12/09/19 23 9:56 AM EDT documented as of this encounter Care Teams Carrier Loader Relationship Specialty Start Date End Date Elana Rdz MD [address] [place] [phone] PCP - General Internal Medicine 05/24/23 documented as of this encounter
--- OUTSIDE RECORDS SUMMARY | 2025-07-23 18:35 | XMS_ITS | Encounter Summary ---
Author Organization [employer] Address [address] [place] [place] [address] Care Team Providers Care Waterworks Operator Name Role Phone Elana Rdz MD Primary Care Pro vider Reason for Visit * Reason Onset Date Comments pre op 07/21/2025 Encounter Details Date Type Department Care Team ([facility] st Contact Info) Description 07/21/2025 Telephone [facility] MEDICINE [address] [place], [place] [phone] Elana Rdz MD [address] [place] [address] pre op Social History Tobacco Use Types Packs/Day Years Used Date Smoking Tobacco: Never Passive Smoke Exposure: Never Smokeless Tobacco: Never Alcohol Use Standard Drinks/Week [...] encounter Miscellaneous Notes * Telephone Encounter - Aneesh Holguin - 07/21/2025 3:49 PM EST Pt and facility agreed to 07/31 with NAILA Devine * Telephone Encounter - Rosanna Lucero - 07/21/2025 10:32 AM EST Date of Surgery: 08/12 Surgical procedure being done: vitrectomy left eye Type of anesthesia: General Lab needed: Yes EKG: Yes Surgeon's name: Dr Tavia Martinez Facility name: [facility] Surgeon's office number: [phone] opt 3 Surgeon's office fax number: [phone] Contact name (person you spoke with): Yumiko Last office note from surgeon requested: No Send Message to Aneesh Holguin documented in this encounter Plan of Treatment Upcoming Encounters Date Type Department Care Team ([facility] st Contact Info) Description 07/31/2025 2:00 PM EST Office Visit [facility] MEDICINE [address] [place] [address] Mirella Perez NP [address] [place] [address] 09/24/2025 1:30 PM EST Office Visit [facility] MEDICINE [address] [place], [place] [phone] Elana Rdz MD [address] [place], [place] [phone] documented as of this encounter Visit Diagnoses Not on filedocumented in this encounter Additional Health Concerns Assessment Noted Time PHQ-9 Depression Total Score: 0 03/04/20 25 3:36 PM EDT documented as of this encounter Care Teams Waterworks Operator Relationship Specialty Start Date End Date Elana Rdz MD [address] [place] [phone] PCP - General Internal Medicine 05/24/23 documented as of this encounter
--- OUTSIDE RECORDS SUMMARY | 2025-07-23 18:35 | XMS_ITS | Encounter Summary ---
Author Organization [employer] Address [address] [facility] [address] [place] [address] Care Team Providers Care Diorama Model Maker Name Role Phone Elana Rdz MD Primary Care Pro vider Encounter Details Date Type Department Care Team ([facility] st Contact Info) Description 12/19/2023 Orders Only [facility] MEDICINE [address] [place] [address] ProviderIsael MD Social History Tobacco Use Types [...] Description 07/31/2025 2:00 PM EST Office Visit [facility] MEDICINE [address] [place] [address] Mirella Perez NP [address] [place] [address] 09/24/2025 1:30 PM EST Office Visit [facility] MEDICINE [address] [place] [address] Elana Rdz MD [address] [place] [address] documented as of this encounter Procedures Procedure Name Priority Date/Time Associated Diagnosis Comments COLONOSCOPY Routine 12/06/2017 8:04 AM EDT COLONOSCOPY Routine 02/20/2013 8:02 AM EDT documented in this encounter Results * Colonoscopy (12/06/2017 8:04 AM EDT) Historical Provider HEALTH MAINTENANCE Final Result * Colonoscopy (02/20/2013 8:02 AM EDT) us Historical Provider HEALTH MAINTENANCE Final Result documented in this encounter Visit Diagnoses Not on filedocumented in this encounter Additional Health Concerns Assessment Noted Time PHQ-9 Depression Total Score: 0 08/29/20 23 2:18 PM EST documented as of this encounter Care Teams Diorama Model Maker Relationship Specialty Start Date End Date Elana Rdz MD [address] [place] [address] PCP - General Internal Medicine 05/24/23 documented as of this encounter
--- OUTSIDE RECORDS SUMMARY | 2025-07-23 18:35 | XMS_ITS | Patient Health Record ---
Author Organization [facility] [place] Address [address] [place] [address] Care Team Providers Care Dampener Operator Name Role Phone Elana Rdz Primary Care Provider Kit Salinas Unavailable [phone] Allergies Allergen (clinical drug ingredient) Drug/Non Drug [...] Risk Notes Problem Mononeuropathy of lower limb (432951628) Neuritis of right foot (G57.91) Active confirmed Vital Signs Blood pressure diastolic 70 mm Hg 04/08/2025 Height 5 ft 6 in in 04/08/2025 Blood pressure systolic 130 mm Hg 04/08/2025 Weight 150 lbs 04/08/2025 BMI 24.21 kg/m2 04/08/2025 Encounters Encounter Location Date Provider Diagnosis [facility] [address] [phone] 04/08/2025 Kit Radha Pain in right foot M79.671 ; Neuritis of right foot G57.91 and 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
--- OUTSIDE RECORDS SUMMARY | 2025-07-23 18:35 | XMS_ITS | Encounter Summary ---
Author Organization [employer] Address [address] [place] [address] Care Team Providers Care Production Miner Name Role Phone Elana Rdz MD Primary Care Pro vider Reason for Visit * Reason Onset Date Comments pre-op 07/17/2023 Encounter Details Date Type Department Care Team ([facility] st Contact Info) Description 07/17/2023 Telephone [facility] MEDICINE [address] [place], [place] [phone] Elana Rdz MD [address] [place] [address] pre-op Social History Tobacco Use Types Packs/Day [...] - 07/17/2023 4:05 PM EST Tc from [facility] [place] requesting a pre-op Location: [facility], [address] [place] [address] ext [phone] Procedure: vitrectomy of left eye Date of Procedure: 08/30 Lab: discretion of PCP EKG: yes Anesthesia: will get back with INFO Name of surgeon: Dr. Gregorio Black documented in this encounter Plan of Treatment Upcoming Encounters Date Type Department Care Team ([facility] st Contact Info) Description 07/31/2025 2:00 PM EST Office Visit [facility] MEDICINE [address] [place] [address] Mirella Perez NP [address] [place] [phone] 09/24/2025 1:30 PM EST Office Visit [facility] MEDICINE [address] [place] [address] Elana Rdz MD [address] [place] [address] documented as of this encounter Visit Diagnoses Not on filedocumented in this encounter Additional Health Concerns Assessment Noted Time PHQ-9 Depression Total Score: 0 12/09/19 9:56 AM EDT documented as of this encounter Care Teams Production Miner Relationship Specialty Start Date End Date Elana Rdz MD [address] [place] [address] PCP - General Internal Medicine 05/24/23 documented as of this encounter
--- OUTSIDE RECORDS SUMMARY | 2025-07-23 18:35 | XMS_ITS | Encounter Summary ---
Author Organization [employer] Address [address] [place] [address] [place] [address] Care Team Providers Care Cranberry Sorter Name Role Phone Elana Rdz MD Primary Care Pro vider Reason for Visit * Reason Onset Date Comments change referral 11/03/2024 Encounter Details Date Type Department Care Team ([facility] st Contact Info) Description 11/03/2024 Telephone [facility] [address] [place], [place] [phone] Elana Rdz MD [address] [place] [address] change referral Social History Tobacco Use Types [...] EST Tc from pt stating called to health services rn to make an appointment but it is completely full, pt is requesting to be referred to another facility that is near [place], [place]. Any questions contact pt [phone] Guamanian documented in this encounter Plan of Treatment Upcoming Encounters Date Type Department Care Team (Late st Contact Info) Description 07/31/2025 2:00 PM EST Office Visit [facility] [address] [place] [phone] Mirella Perez NP [address] [place] [phone] 09/24/2025 1:30 PM EST Office Visit [facility] [address] [place] [phone] Elana Rdz MD [address] [place] [phone] documented as of this encounter Visit Diagnoses Not on filedocumented in this encounter Additional Health Concerns Assessment Noted Time PHQ-9 Depression Total Score: 0 08/29/20 23 2:18 PM EST documented as of this encounter Care Teams Cranberry Sorter Relationship Specialty Start Date End Date Elana Rdz MD [address] [place] [phone] PCP - General Internal Medicine 05/24/23 documented as of this encounter
--- OUTSIDE RECORDS SUMMARY | 2025-07-23 18:35 | XMS_ITS | Encounter Summary ---
Author Organization [facility] Address [address] [place] [address] 7 [place] [address] Care Team Providers Care Coal Pulverizer Operator Name Role Phone Mayda Valerio HOSPITAL SOCIAL WORKER Primary Care Provider [phone] Elana Rdz MD Primary Care Pro vider [...] Description 07/31/2025 2:00 PM EST Office Visit [facility] MEDICINE [address] [place] [phone] Mirella Perez NP [address] [place] [address] 09/24/2025 1:30 PM EST Office Visit [facility] [address] [place] [phone] Elana Rdz MD [address] [place], [place] [phone] documented as of this encounter Visit Diagnoses Not on filedocumented in this encounter Care Teams Coal Pulverizer Operator Relationship Specialty Start Date End Date Madya Valerio FNP [address] [place] [address] PCP - General Family Medicine 05/08/22 05/23/23 Elana Rdz MD [address] [place] [address] PCP - General Internal Medicine 05/24/23 documented as of this encounter
--- OUTSIDE RECORDS SUMMARY | 2025-07-23 18:35 | XMS_ITS | Encounter Summary ---
Author Organization [employer] [facility] Address [address] [place] [address] 7 [place] [address] Care Team Providers Care Environmental Engineering Technician Name Role Phone Mayda Valerio METHODS STUDY ANALYST Primary Care Provider [phone] Elana Rdz MD Primary Care Pro vider Encounter Details Date Type Department Care Team (Latest Contact Info) Description 07/27/2021 Abstract [facility] CONVERSIONS Dental, Provider, DDS Social History Tobacco [...] 2:00 PM EST Office Visit [facility] MEDICINE [address] [place] [address] Mirella Perez NP [address] [place] [address] 09/24/2025 1:30 PM EST Office Visit [facility] MEDICINE [address] [place] [phone] Elana Rdz MD [address] [place], [place] [phone] documented as of this encounter Visit Diagnoses Not on filedocumented in this encounter Care Teams Environmental Engineering Technician Relationship Specialty Start Date End Date Mayda Valerio FNP [address] [place] [address] PCP - General Family Medicine 05/08/22 05/23/23 Elana Rdz MD [address] [place] [address] PCP - General Internal Medicine 05/24/23 documented as of this encounter
--- OUTSIDE RECORDS SUMMARY | 2025-07-23 18:35 | XMS_ITS | Clinical Summary ---
Author Organization [facility] ity Address [address] [place] [address] Care Team Providers Care Cae Engineer Name Role Phone Unavailable Primary Care Provider [...] Depression Screening 09/10/2024 COVID-19 Vaccine (1 - 2024-2 6 season) 2025 Influenza Vaccine (#1) 2025 RSV [...] Procedure Name Priority Date/Time Associated Diagnosis Comments [facility] SCREENING DIGITAL Routine 06/03/2018 8:36 AM EDT Encounter for screening mammogram for malignant neoplasm of breast from Last 3 Months or Most Recently Relevant to Health Maintenance Results * KAY SCREENING DIGITAL (06/03/2018 8:36 AM EDT) Anatomical Region Laterality Modality Mammography 05/29/2018 2:09 PM EDT Narrative 06/03/2018 8:36 AM EDT [facility] Diagnostic Imaging Department [address] [place] [address] Patient: ERENDIRA QUINTANILLA I /Age/Sex: 1960 - 58 - F Unit#: [id number] Location/Status: [facility] CLI Mnemonic/Ordering Site: [facility] Ordering Physician: DENZEL SAUCEDO NP Kay Screening Digital - 06/01/18 - 1038 EXAM: [facility] Screening Digital EXAM DATE AND TIME: 06/01/2018 10:38 AM HISTORY: Screening. Three maternal aunts had breast carcinoma. COMPARISON: 05/26/17, 05/20/16, 04/10/15, 04/04/14, 02/15/13 TECHNIQUE: CC and MLO views of both breasts were obtained using full field digital mammography. Bilateral digital breast tomosynthesis was performed in the MLO projection. Computer aided detection with the [employer] acquired by [employer] 7.2-H was employed. TISSUE DENSITY: c. The [...] Routine screening mammogram BILATERAL in 1 year. 93976, 06261 3342F, 7025F Dictating Physician: RAMONA CAMEJO MD Electronically Signed by: RAMONA CAMEJO MD Dic Date/Time: 06/03/18834 Sign date/Time: 06/03/18835 Procedure Note Ramona Camejo MD - 08/29/2022 [facility] Diagnostic Imaging Department [address] [place] [address] Patient: ERENDIRA QUINTANILLA I /Age/Sex: 1960 - 58 - F Unit#: [id number] Location/Status: [facility] CLI Mnemonic/Ordering Site: [facility] Ordering Physician: DENZEL SAUCEDO SALON PROFESSIONAL [facility] Screening Digital - 06/01/18 - 1038 EXAM: [facility] Screening Digital EXAM DATE AND TIME: 06/01/2018 10:38 AM HISTORY: Screening. Three maternal aunts had breast carcinoma. COMPARISON: 05/26/17, 05/20/16, 04/10/15, 04/04/14, 02/15/13 TECHNIQUE: CC and MLO views of both breasts were obtained using fullfield digital mammography. Bilateral digital breast tomosynthesis was performedin the MLO projection. Computer aided detection with the [employer] The[employer]as employed. TISSUE DENSITY: c. The breasts are [...] Routine screening mammogram BILATERAL in 1 year. 82750, 22472 3342F, 7025F Dictating Physician: RAMONA CAMEJO MD Electronically Signed by: RAMONA CAMEJO MD Dic Date/Time: 06/03/18 0835 Sign date/Time: 06/03/18 0836 Denzel Saucedo NP IMG BI PROCEDURES Final Result from Last 3 Months or Most Recently Relevant to Health Maintenance
--- OUTSIDE RECORDS SUMMARY | 2025-07-23 18:35 | XMS_ITS | Clinical Summary ---
Author Organization [employer] Address [address] [place] [address] 7 [place] [address] Care Team Providers Care Composite Boat Builder Name Role Phone Elana Rdz MD Primary [...] MG capsule TAKE 1 CAPSULE BY MOUTH TWICE DAILY AT NOON AND IN THE EVENING 60 capsule 2 5 Active Active Problems Problem Noted Date Diagnosed Date Preop examination 06/02/2025 Other specified glaucoma 12/09/2024 Neuropathic pain of [...] Encounters Date Type Department Care Team Description 07/21/2025 Telephone [facility] [address] [place] [address] Elana Rdz MD pre op 06/13/2025 Refill [facility] [address] [place] [address] Elana Rdz MD 06/02/2025 2:30 PM EDT Office Visit [address] [address] Krissy Lorenzana FNP Preop examination (Primary Dx); Hyperlipidemia, unspecified hyperlipidemia type; Mild intermittent asthma without complication 06/02/2025 Travel 05/27/2025 Telephone [facility] [address] [place] [address] Elana Rdz MD pre op 05/21/2025 Orders Only [facility] External Provider, [facility] 05/20/2025 Orders Only GENERIC EXTERNAL DATA DEPARTMENT Provider, Generic External Data from Last 3 Months Immunizations Immunization Administration Dates Next Due Hep B, adult 07/17/1996,02/21/1996,01/16/1996 INFLUENZA INJECTABLE QUADRIV ALANT CCIIV4 MDCK Multi-dose vial 06/21/2019 Influenza Injectable Quadriv alant Preservative Free IIV4 MDCK 06/08/2018,06/30/2017 Influenza Whole 05/24/2009 Influenza injectable quadriv alent preservative free 06/25/2022,06/26/2021,06/10/2020,05/08,06/02/2016 Influenza, IIV3, injectable 06/02/2010 Influenza, Injectable, MDCK, preservative free 06/15/2024 Influenza, Split (incl. bernardo fied surface antigen) 06/24/2013 MMR 02/11/2009 Novel [id number], all formulations 10/04/2009 Pneumococcal Polysaccharide PPSV23 07/16/2008 [...] Passive Smoke Exposure: Never Smokeless Tobacco: Never Tobacco Cessation:Counseling Given: Not [...] Sign Reading Time Taken Comments Blood Pressure 130/74 06/02/2025 2:17 PM EDT Pulse 70 06/02/2025 2:17 PM EDT Temperature 36.6 C (97.8 F) 06/02/2025 2:17 PM EDT Respiratory Rate 18 06/02/2025 2:17 PM EDT Oxygen Saturation 99% 06/02/2025 2:17 PM EDT Inhaled Oxygen Concentration - - Weight 70.4 kg (155 lb 2 oz) 06/02/2025 2:17 PM EDT Height 167.6 cm (5' 6 ) 06/02/2025 2:17 PM EDT Body Mass Index 25.04 06/02/2025 2:17 PM EDT Plan of Treatment Upcoming Encounters Date Type Department Care Team (Late st Contact Info) Description 07/31/2025 2:00 PM EST Office Visit [facility] [address] [place] [phone] Mirella Perez NP [address] [place] [phone] 09/24/2025 1:30 PM EST Office Visit [facility] [address] [place] [address] [phone] Elaan Rdz MD [address] [place] [address] Health Maintenance Due Date Last Done Comments CT Colonography 1960 Dental Prophylaxis 1960 Dental X-Ray: Full Mouth 1960 FIT DNA/Cologuard 1960 FIT 1960 FOBT 1960 Sigmoidoscopy 1960 Pneumococcal Vaccine: 50+ Years (2 of 2 - PCV) 07/16/2009 07/16/2008 RSV Patients and Patients Aged 60 years or older (1 - Risk 50-74 years 1-dose series) 02/05/2012 Dental Oral Exam 02/13/2025 08/14/2024 COVID-19 Vaccine ( season) 2025 10/14/2021, 01/18/2021, 12/21/2020 Influenza Vaccine (#1) 2025 , 06/25/2022, 06/26/2021, Additional history exists Dental X-Ray: Bitewings 08/15/2025 08/14/20, 11/22/2023, 07/25/2023, Additional history exists SDOH Screening 12/01/2025 12/01/2024 Alcohol/Substance Use Screening 03/04/2026 03/04/2025 Depression Screening 03/04/2026 03/04/2025, 03/04/20 Disability Screening 03/04/2026 03/04/2025 Tobacco Screening 06/02/2026 06/02/2025 Mammogram 12/16/2026 12/16/2024, 11/08, 10/29/2021 Colonoscopy 12/07/2027 [...] 1 2:57 PM EDT CYTOPATH-CELL ENHANCED Routine 5 6:53 PM EDT HEPATITIS C AB W/REFL TO HCV RNA, [...] PM EDT Narrative 05/21/2025 1:36 PM EDT [address] [address] [address] Scan Report Signed Patient: Erendira Quintanilla I MR#: [id number] : 1960 Acct:[id number] Age/Sex: 65 / F ADM Date: 05/21/25 Loc: HO.CT Attending Dr: Megan FLORES Ordering Physician: Megan Solorio Date of Service: 05/21/25 Procedure(s): CT kidney stone Accession Number(s): [id number] cc: Megan Solorio; Elana Rdz MD Report Number: [id number]: Total DLP = 352.00 mGy-cm Reason for [...] Roman Brand MD 05/21/2025 01:34 PM EDT RP Dictated By: Roman Brand MD Signed By: <Electronically signed by Roman Brand MD in OV> 05/21/25 1334 DD/ 1257 TD/TT: 05/21/25 1326 Gear Tester: Procedure Note Donotuseinterpreter, Image - 05/21/[address] [place] [address] [address] Scan Report Signed Patient: Erendira Quintanilla [facility]#: [id number] : 2Acct:[id number] Age/Sex: 65 / FADM Date: 05/21/25 Loc: .CT Attending Dr: Megan FLORES Ordering Physician: Megan Solorio Date of Service: 05/21/25 Procedure(s): CT kidney stone Accession Number(s): [id number] cc: Megan Solorio; Elana Rdz MD Report Number: [id number]: Total DLP = 352.00 mGy-cm Reason for [...] 05/21/25 1334 DD/ 1257 TD/TT: 05/21/25 1326 Gear Tester: [facility] External Provider IMG CT PROCEDURES Final Result * Cytopath-cell enhanced (05/20/2025 6:53 PM EDT) 05/20/2025 6:53 PM EDT 05/21/2025 10:41 AM EDT [facility] - 05/21/2025 4:36 PM EDT ----- ------- Name: Erendira Quintanilla I Age/Sex: 65/F : 1960 Unit#: [id number] Attend Dr: Megan Solorio [facility] Re05/20/25 Status: DEP REF Location: .LAB Disch: ----- ------- SPEC : [id number] RECD: 05/21/25-1040 STATUS: MEETA AGUDELO NUM: [id number] MATTHEW: 05/20/[address] [facility] [address]: Megan Solorio [facility] ENTERED: 05/21/25-1118 SP TYPE: Cytology OTHR DR: Elana Rdz [...] developed and their performance characteristics determined by [facility]. They have not been cleared or approved by the U.S. Food and Drug Administration (FDA). However, the FDA has determined that such clearance or approval is not necessary. This laboratory is certified under the Clinical Laboratory Improvement Amendments of 1988 (CLIA) as qualified to perform high complexity clinical laboratory testing. Copies To: Megan Solorio [facility] Urology Services [address] [place] [address] [place] [phone] [email or web address] Elana Rdz MD [address] [place] [address] CONTINUED ON NEXT PAGE ----- ------- Name: Erendira Quintanilla I Age/Sex: 65/F : 1960 Unit#: [id number] Attend Dr: Megan Solorio [facility] Re05/20/25 Status: DEP [facility] Disch: ----- ------- SPEC : [id number] RECD: 05/21/25 STATUS: MEETA AGUDELO NUM: [id number] MATTHEW: 05/20/[address] [facility] [address]: Megan Solorio MANAGER ASSURANCE- ENTERED: 05/21/25 SP TYPE: Cytology OTHR DR: Elana Rdz MD ORDERED: Cyto-enhanced ----- ------- Signed (signature on file) Felton Reich MD 05/21/25 2996 ----- ------- END OF REPORT us Generic External Data Provider LAB CYTOLOGY ORIANA [place]IR[place] Final Result [facility] [address] [place] [phone] * Hepatitis C Antibody with Reflex to HCV, RNA, Quantitative, Real-Time PCR (02/27/2025 8:54 AM EDT) Hepatitis C Antibody Nonreactive Nonreactive [facility] Comment:Antibodies to HCV no t detected; does not exclude early acuteHCV infection. Blood Venous blood specimen / Unknown 02/27/2025 8:54 AM EDT 02/27/2025 11:31 AM EDT us Elana Mcgowan MD LAB BLOOD ORDERAB LES Final Result Performing Organization Address [facility]/ZIP Co de Phone Number [facility] [address] [place] [phone] * HIV-1/2 Antigen and Antibodies, Fourth Generation, with Reflexes (02/27/2025 8:54 AM EDT) Pathologist [facility] HIV AB/AG Nonreactive Nonreactive [facility] Comment:HIV-1 p24 Ag and/or HIV-1/HIV-2 Ab not detected.A test result that is nonreactive does not exclude thepossibility of exposure to or infection with HIV-1 and/orHIV-2. Nonreactive results in this assay for individualswith prior exposure to HIV-1 and/or HIV-2 may be due toantigen and antibody levels that are below the limit ofdetection of this assay.The [employer] HIV Ag/Ab Combo assay result andsupplemental assay results should be interpreted inconjunction with the patient's clinical presentation,history and other laboratory results. If the results areinconsistent with clinical evidence, additional testing issuggested to confirm the result. Blood Venous blood specimen / Unknown 02/27/2025 8:54 AM EDT 02/27/2025 11:31 AM EDT us Elana Mcgowan MD LAB BLOOD ORDERAB LES Final Result Performing Organization Address [facility]/ZIP Co de Phone Number [facility] [address] [place] [phone] * BI Mammogram Screening Tomosynthesis Bilateral (12/16/2024 3:00 PM EDT) Anatomical Region Laterality Modality Breast Bilateral Mammography 12/16/2024 3:00 PM EDT Narrative 12/22/2024 5:27 PM EDT [facility] [address] [place], [place] [address] Mammography Report Signed Patient: Erendira Quintanilla I MR#: [id number] : 1960 Acct:[id number] Age/Sex: 64 / F ADM Date: 12/16/24 Loc: HO.MAMMO Attending Dr: Elana Mcgowan MD Ordering Physician: HARISH VALENZUELA CNM Results: 2 Benign Findings Date of Service: 12/16/24 Follow Up: 1 Year From Orig inal Mammogram Procedure(s): MM tomosynthesis screening BI Accession Number(s): [id number] cc: Elana Rdz MD; HARISH VALENZUELA CNM [...] 12/22/24 1724 DD/ 1500 TD/TT: 12/16/24 1510 Gear Tester: Procedure Note Donotuseinterpreter, Image - 12/22/2024 [facility] [address] [place], [place] [address] Mammography Report Signed Patient: Erendira Quintanilla IMR#: [id number] : 2Acct:[id number] Age/Sex: 64 / FADM Date: 12/16/24 Loc: HO.MAMMO Attending Dr: Elana Mcgowan MD Ordering Physician: HARISH VALENZUELAesults: 2 Benign Findings Date of Service: 12/16/24Follow Up: 1 Year From Orig inal Mammogram Procedure(s): MM tomosynthesis screening BI Accession Number(s): [id number] cc: Elana Rdz MD; HARISH VALENZUELA CNM [...] 12/22/24 1724 DD/ 1500 TD/TT: 12/16/24 1510 Gear Tester: us Harish Valenzuela CNM IMG BI PROCEDURES Edited Result - Final * HPV mRNA E6/E7 w/Reflex to HPV Genotypes 16, 18/45 (10/22/2023 11:11 AM EST) HPV nRNA E6/E7 Not Detected Not Detected [facility] Comment:Methodology: Transcr iption-Mediated AmplificationThis assay detects E6/E7 viral messenger RNA (mRNA) from 14high-risk HPV types (16,18,31,33,35,39,45,51,52,56,58,59,66,68).Cervical sources are required for HPV testing.If a vaginal source from a patient who has had atotal hysterectomy with removal of cervix wassubmitted, please contact the testing laboratoryfor alternative testing options.For additional information, please refer [email or web address]/[email or web address](This link if provided for information/educational purposes only.)THIS TEST WAS PERFORMED AT:[facility] [place] [phone] COYLE MD HPV mRNA E6/E7 [facility] HPV 16 RNA [facility] HPV 18/45 RNA [facility] 10/22/2023 11:1 1 AM EST 10/23/2023 8:00 AM EST Harish Valenzuela CNM LAB CYTOLOGY ORDERABLES F inal Result [facility] [address] [place] [phone] * Pap Smear (10/22/2023 11:11 AM EST) Swab Cervix uteri structure / Unknown 10/22/2023 11:11 AM EST 10/23/2023 8:00 AM EST Narrative [facility] - 11/06/2023 1:21 PM EST ----- ------- Name: Erendira Quintanilla I Age/Sex: 63/F : 1960 [id number] Unit#: [id number] Attend Dr: HARISH [facility]EL[facility] Re10/22/23 Status: DEP REF Location: [facility] Disch: ----- ------- SPEC : [id number] RECD: 10/23/23 STATUS: MEETA AGUDELO NUM: [id number] MATTHEW: 10/22/23-[address] [facility] [address]: HARISH VALENZUELA [facility] ENTERED: 10/23/23 SP TYPE: Pap Smr OTHR : ORDERED: Pap Smear Interpretation Satisfactory for evaluation. Mild inflammation. Negative for intraepithelial lesion or malignancy. HPV mRNA E6/E7: NOT DETECTED This assay detects E6/E7 viral messenger RNA (mRNA) from 14 high-risk HPV types (16, 18, 31, 33, 35, 39, 45, 51, 52, 56, 58, 59, 66, 68) HPV testing performed by [facility], [place], [place]. See reference laboratory portion of the EMR for entire report. Clinical Information LMP: Postmenopausal Previous PAP test: Unknown date/findings Material Received ThinPrep-Cervical ----- ------- Signed (signature on file) GALILEO Hutchins ([facility]) 11/06/23 1321 ----- ------- END OF REPORT Harish MOORE LAB CYTOLOGY ORDERABLES F inal Result [facility] [address] [place] [phone] [phone] * Hm Colonoscopy (12/06/2017 8:04 AM EDT) Historical Provider HEALTH MAINTENANCE Final Result from Last 3 Months or Most Recently Relevant to Health Maintenance Insurance [facility] , [address] [place] [address] DENTAL - HSN PARTIAL (MEDICAID) Care Teams Composite Boat Builder Relationship Specialty Start Date End Date Elana Rdz MD [address] [place] [phone] PCP - General Internal Medicine 05/24/23
== END 2025-07-23 16:26 | disposition home or self-care (01) ==
LOC: HO.HUSH 15:41
PROVIDERS: PCP Student in an Organized Health Care Education/Training Program; Visit Provider Nurse Practitioner Family
DX: N20.0 Calculus of kidney (principal)
CPT/HCPCS: 99213; G2211